=== PATIENT | male | born 1960 | race Caucasian/White ===

== ENCOUNTER 2020-11-02 08:34 | Outpatient (CLI) | payer BC, SELFPAY | END 2020-11-02 08:35 | disposition home or self-care (01) | LOC: ANHCOVIDVC 08:34 | PROVIDERS: PCP Family Medicine Adolescent Medicine | DX: Z23 Encounter for immunization (principal) | CPT/HCPCS: 0001A; 91300 ==

== ENCOUNTER 2020-11-23 08:25 | Outpatient (CLI) | payer BC, SELFPAY | END 2020-11-23 08:26 | LOC: ANHCOVIDVC 08:26 | PROVIDERS: PCP Family Medicine Adolescent Medicine | DX: Z23 Encounter for immunization (principal) | CPT/HCPCS: 0002A; 91300 ==

== ENCOUNTER 2021-06-11 21:58 | Inpatient (IN) | payer BC, SELFPAY ==
[2021-06-11] VITALS (18 sets, daily range): BP systolic 180–236; BP diastolic 79–110; PULSE 69–80; RESP 15–23; TEMP 36.4; O2SAT 87–97
--- NOTE | ~2021-06-11 | XR_ITS ---
EXAMINATION: XR chest 1V portable INDICATION: Shortness of breath TECHNIQUE: Portable AP chest at 2231 hours COMPARISON: 03/14/2018 FINDINGS: The lungs are free of acute opacities. There is no pleural effusion or pneumothorax. The ca rdiomediastinal silhouette is normal. IMPRESSION: 1. No acute cardiopulmonary abnormality. Reviewed, dictated and finalized at location A.
--- NOTE | ~2021-06-11 | CT_ITS ---
EXAMINATION: CT diagnostic chest wo con DATE: 06/14/2021 16:51 INDICATION: Shortness of breath TECHNIQUE: Computed tomography (CT) of the chest was performed without intravenous contrast. The dose -length product was 376.88 mGy-cm. Automated exposure control and iterative reconstruction technique were employed. COMPARISON: CT dated 06/11/2021 FINDINGS: Stable mild thoracic lymphadenopathy, likely reactive. Heart size normal. No significant pl eural or pericardial effusion. Visualized aspects of the upper abdomen are unremarkable. Mild atheros clerosis of the aorta and coronary arteries. No pneumothorax. No focal airspace consolidation. No end obronchial lesions. There is lower lobe atelectasis. Calcified granuloma right upper lobe. IMPRESSION: 1. Bilateral lower lobe atelectasis. Reviewed, dictated and finalized at location A.
--- NOTE | ~2021-06-11 | US_ITS ---
EXAMINATION: US venous doppler [facility] DATE: 06/12/2021 14:11 INDICATION: Bilateral lower limb swelling TECHNIQUE: Boyce scale images without and with compression and Doppler images of the bilateral lower e xtremity veins were obtained. COMPARISON: 03/14/2018 FINDINGS: The right common femoral vein, profunda femoral vein, femoral vein, popliteal vein, peroneal trunk, p osterior tibial veins, and greater saphenous vein are patent. The left common femoral vein, profunda femoral vein, femoral vein, popliteal vein, peroneal trunk, po sterior tibial veins, and greater saphenous vein are patent. IMPRESSION: 1. Patent bilateral lower extremity veins. No evidence of deep venous thrombosis. Reviewed, dictated and finalized at location A. IMPRESSION: 1. Patent bilateral lower extremity veins. No evidence of deep venous thrombosi s.
--- NOTE | ~2021-06-11 | CT_ITS ---
EXAMINATION: CTA chest PE protocol DATE: 06/12/2021 00:10 INDICATION: Shortness of breath TECHNIQUE: Computed tomography angiography (CTA) of the chest was performed with 100 mL Omnipaque-350 intravenous contrast timed to evaluate the pulmonary arteries. Coronal maximum intensity projection 3D-reconstructions were created by the technologist. The dose-length product (DLP) was 766.62 mGy-cm. Automated exposure control and iterative reconstruction technique were employed. COMPARISON: 03/14/2018 FINDINGS: The pulmonary arteries are well-opacified. No pulmonary embolism is identified. The lungs a re free of acute opacities. There is no pleural effusion or pneumothorax. There is mild chronic media stinal lymphadenopathy, likely reactive. Calcified coronary artery atherosclerosis is noted. The hear t size is normal. There is moderate thoracic spondylosis. IMPRESSION: 1. No pulmonary embolism or acute cardiopulmonary abnormality. Reviewed, dictated and finalized at location A.
--- NOTE | 2021-06-11 22:49 | ECG_ITS ---
Measurements Intervals [place] Rate: 73 P: 67 OR: 204 QRS: -50 QRSD: 118 T: 19 QT: 360 QTc: 398 Interpretive Statements SINUS RHYTHM LEFT AXIS DEVIATION INTRAVENTRICULAR CONDUCTION DELAY CANNOT RULE OUT SEPTAL INFARCT, AGE INDETERMINATE BASELINE ARTIFACT- I, III, AVL ABNORMAL ECG Electronically Signed On 06-12-2021 9:30:37 CDT by Marvin Bullock D.O.
[2021-06-11 23:03] LABS: Basophils Absolute Auto 0.1 K/mm3 (0.0-0.1); Basophils Percent Auto 1.2 % (0.2-1.2); Eosinophils Absolute Auto 0.3 K/mm3 (0-0.3); Eosinophils Percent Auto 3.4 % (0-4.4); Hematocrit 53.5 % (42.0-52.0); Hemoglobin 17.3 g/dL (14.0-18.0); Immature Granulocyte Absolute 0.02 K/mm3 (0.00-0.031); Immature Granulocyte Percent A 0.2 % (0-0.5); Lymphocytes Percent Auto 25.1 % (18.3-44.2); Mean Corpuscular HGB Conc 32.3 g/dl (32-36); Mean Corpuscular Hemoglobin 30.9 pg (26-34); Mean Corpuscular Volume 95.7 fl (80-100); Monocytes Percent Auto 10.5 % (2.6-8.5); Neutrophils Absolute Auto 5.5 K/mm3 (1.3-6.7); Neutrophils Percent Auto 59.6 % (45.5-73.1); Platelet Count Result 189 k/mm3 (150-375); Red Blood Count 5.59 M/mm3 (4.6-6.20); Red Cell Distribution Width 13.3 % (11.5-14.5); White Blood Count 9.2 K/mm3 (4.5-10.0)
[2021-06-11 23:06] LABS: Add Urine Microscopic? YES; Appearance Urine Clear (Clear); Bilirubin Urine Negative (Negative); Blood Urine Negative (Negative); Color Urine Straw (Yellow); Glucose Urine UA 3+ mg/dL (Negative); Ketones Urine Negative (Negative); Leukocyte Esterase Ur Negative LEU/UL (Negative); Nitrate Urine Negative (Negative); Protein Urine 2+ mg/dL (Negative); RBC Urine 0-2 /hpf (0-2); Specific Grav Ur 1.009 (1.001-1.035); Urobilinogen Urine Negative mg/dL (<2.0); WBC Urine 0-3 /hpf
[2021-06-11 23:15] LABS: INR 0.9
[2021-06-11] MEDS: IPRATROPIUM BR 0.02% INH SOLN 0.5 MG/2.5 ML VIAL INHALATION (23:15)
[2021-06-11 23:16] LABS: Partial Thromboplastin Time 28.1 SECONDS (22.3-36.8)
[2021-06-11] MEDS: ALBUTEROL SULFATE NEB 2.5 MG/0.5 ML INH 5 MG INHALATION (23:16)
[2021-06-11 23:17] LABS: Lactic Acid Reflex 1.1 mmol/L (0.7-2.1)
[2021-06-11 23:17] LABS: Alanine Aminotransferase 22 U/L (4-50); Albumin Level 3.9 g/dL (3.5-5.1); Alkaline Phosphatase 92 U/L (38-126); Anion Gap 5 mmol/L (8-16); Aspartate Amino Transferase 35 U/L (17-59); Bilirubin,Total 0.5 mg/dL (0.2-1.3); Blood Urea Nitrogen 17 mg/dL (9-20); Calcium 9.6 mg/dL (8.4-10.2); Carbon Dioxide 39 mmol/L (22-30); Chloride 93 mmol/L (98-107); Estimated CRCL calculation 105 ml/min; Estimated Glomerular Filt Rate > 60; Glucose 308 mg/dL (65-110); Magnesium 1.8 mg/dL (1.6-2.3); Potassium 4.3 mmol/L (3.4-5.0); Sodium 137 mmol/L (137-145)
--- NOTE | 2021-06-11 23:19 | PCRCNOTE ---
UNABLE TO OBTAIN ABG AFTER MULTIPLE ATTEMPTS. PHYSICIAN NOTIFIED.
[2021-06-11 23:29] LABS: NT Pro B Type Natriuretic Pept 60 pg/mL (5-100)
[2021-06-11 23:35] LABS: Troponin I < 0.012 ng/mL (0.000-0.034)
[2021-06-12] VITALS (21 sets, daily range): BP systolic 155–191; BP diastolic 73–91; PULSE 65–87; RESP 16–25; TEMP 36.2–37.1; O2SAT 90–94; BMI 29.9
--- NOTE | 2021-06-12 00:02 | ED.GENADULT ---
HPI - General Adult General Chief complaint: Shortness of Breath/Dyspnea Stated complaint: cough/congestion Time Seen by Provider: 06/11/21 22:25 History of Present Illness HPI narrative: Patient 60-year-old gentleman who presents the emergency department with chief complaint of shortness of breath. Patient reports he has prior history of ARDS secondary to pancreatitis the patient reports he was admitted at [facility] for some period of time is about 2 years ago patient states that he is not on home oxygen no history of COPD. The patient states that over the last several days he has had a cough that is been pretty yellow sputum patient reports that he has had his third vaccine for COVID-19 and is also had his flu shot this year patient reports his symptoms began a couple of days after receiving his most recent immunizations. Patient denies fever reports that he is felt short of breath. Patient denies chest pain denies abdominal pain. Related Data Allergies Allergy/AdvReac Type Severity Reaction Status Date / Time No Known Allergies Allergy Verified 06/11/21 22:31 Review of Systems Review of Systems: A 10 system review of systems was completed on the patient and is negative except for what is stated in the HPI. Nursing and ancillary documentation was reviewed. Exam Narrative: GENERAL: Well-appearing, well-nourished, and in no acute distress. HEAD: Normocephalic, atraumatic. EYES: PERRLA and EOMI. ENT: Nares clear, no rhinorrhea or epistaxis. Mucous membranes moist. NECK: Supple. CHEST: Clear to auscultation. No respiratory distress. HEART: Regular rate and rhythm. No murmur heard. Normal peripheral pulses. ABDOMEN: Soft, nontender, nondistended, normal active bowel sounds. EXTREMITIES: Normal range of motion. No edema. SKIN: Warm, dry, no rash. NEURO: No focal deficits. Alert and oriented x3. PSYCH: Normal mood and affect. Course Vital Signs Vital signs: Vital Signs Temperature 36.4 C 06/11/21 22:07 Pulse Rate 80 06/11/21 22:07 Respiratory Rate 20 06/11/21 22:07 Blood Pressure 236/110 H 06/11/21 22:07 Pulse Oximetry 87 L 06/11/21 22:07 Temperature 36.4 C 06/11/21 22:07 Pulse Rate 80 06/12/21 01:16 Respiratory Rate 22 H 06/12/21 01:16 Blood Pressure 167/78 H 06/12/21 01:16 Pulse Oximetry 93 06/12/21 01:16 Medical Decision Making Vital Signs Vital Signs: Vital Signs Temperature 36.4 C 06/11/21 22:07 Pulse Rate 80 06/11/21 22:07 Respiratory Rate 20 06/11/21 22:07 Blood Pressure 236/110 H 06/11/21 22:07 Pulse Oximetry 87 L 06/11/21 22:07 Temperature 36.4 C 06/11/21 22:07 Pulse Rate 80 06/12/21 01:16 Respiratory Rate 22 H 06/12/21 01:16 Blood Pressure 167/78 H 06/12/21 01:16 Pulse Oximetry 93 06/12/21 01:16 Lab Data Result diagrams: 06/11/21 22:56 06/11/21 22:56 Labs: Lab Results 06/11/21 06/11/21 06/11/21 Range/Units 22:56 22:56 22:56 WBC 9.2 (4.5-10.0) K/mm3 RBC 5.59 (4.6-6.20) M/mm3 Hgb 17.3 (14.0-18.0) g/dL Hct 53.5 H (42.0-52.0) % MCV 95.7 (80-100) fl MCH 30.9 (26-34) pg MCHC 32.3 (32-36) g/dl RDW 13.3 (11.5-14.5) % Plt Count 189 (150-375) k/mm3 MPV 12.0 H (7.4-10.4) fl Immature Gran % (Auto) 0.2 (0-0.5) % Neut % (Auto) 59.6 (45.5-73.1) % Lymph % (Auto) 25.1 (18.3-44.2) % Fannin % (Auto) 10.5 H (2.6-8.5) % Eos % (Auto) 3.4 (0-4.4) % Baso % (Auto) 1.2 (0.2-1.2) % Lymph # (Auto) 2.30 (0.9-3.2) K/mm3 Fannin # (Auto) 1.0 H (0.1-0.6) K/mm3 Eos # (Auto) 0.3 (0-0.3) K/mm3 Baso # (Auto) 0.1 (0.0-0.1) K/mm3 Abs Immat Gran (auto) 0.02 (0.00-0.031) K/mm3 Absolute Neuts (auto) 5.5 (1.3-6.7) K/mm3 Absolute Nucleated RBC 0.0 (0.0-0.012) K/mm3 Nucleated RBC % 0.0 (0.0-0.2) % PT 12.0 (11.1-14.7) Seconds INR 0.9 APTT 28.1 (22.3-36.8) SECONDS Sodium (137-145) mmol/L Potassium
[2021-06-12 01:23] LABS: Lipase 142 U/L (23-300)
[2021-06-12] MEDS: methylPREDNISolone SOD SUCC 125 MG VIAL IV PUSH (02:24)
[2021-06-12] MEDS: ALBUTEROL SULFATE (*SP) AEROSOL 1 PUFF 2 PUFF INHALATION (02:27)
--- NOTE | 2021-06-12 03:38 | ADMGEN ---
This patient, Sourav Jeter, was admitted to [facility] Surg Room 312-01 at 315. Patient/family oriented to hospital policies and general routines including ID bracelet, bed and alarms, visiting hours, pain management, procedures, bathroom and other care routines, personal items, smoking policy, room service/diet, and visiting hours. Information on how to activate the Rapid Response Team has been discussed. Patient/Family are encouraged to report perceived risks to care and to ask questions if they do not understand what they are told or what they should do.
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
[2021-06-12] MEDS: methylPREDNISolone SOD SUCC 125 MG VIAL 60 MG IV PUSH ×3 (08:23→21:07)
[2021-06-12] MEDS: POTASSIUM CHLORIDE 10 MEQ TABLET.ER PO (08:23)
[2021-06-12] MEDS: ROSUVASTATIN 10 MG TABLET 20 MG PO (08:24)
[2021-06-12] MEDS: ENOXAPARIN 40 MG/0.4 ML SYRINGE SUB-Q (08:24)
[2021-06-12] MEDS: METOPROLOL SUCCINATE EXT REL 100 MG TABCR PO (08:24)
[2021-06-12] MEDS: NICOTINE (*PBKC) 21 MG PATCH 1 PATCH TRANSDERM (08:25)
[2021-06-12] MEDS: FUROSEMIDE INJ 100 MG/10 ML VIAL 60 MG IV PUSH ×2 (08:25→17:05)
[2021-06-12] MEDS: hydrALAZINE HCL 50 MG TABLET PO ×3 (08:25→23:14)
[2021-06-12] MEDS: INSULIN ASPART (*BKC) 100 UNITS/ML SUB-Q ×3 (08:26→17:05)
[2021-06-12 08:27] LABS: Glucose Point of Care 304 mg/dl (65-105)
--- NOTE | 2021-06-12 11:34 | PM.IMPN ---
Progress Note: A&P Assessment and Plan (1) Respiratory failure: Qualifiers: Chronicity: acute on chronic Respiratory failure complication: hypoxia and hypercapnia Qualified Code(s): J96.21 - Acute and chronic respiratory failure with hypoxia; J96.22 - Acute and chronic respiratory failure with hypercapnia Code(s): J96.90 - Respiratory failure, unspecified, unspecified whether with hypoxia or hypercapnia Status: Acute Assessment and Plan: CTA reviewed, no acute findings. Bilateral lower extremity venous Doppler has been ordered. Continue breathing treatments Given the patient's history of chronic tobacco use, obstructive sleep apnea, elevated hematocrit, prior history of CO2 retention he likely has some chronic hypoxic hypercapnic respiratory failure. Patient likely has underlying COPD which he has not had an official diagnosis. The patient also reports orthopnea paroxysmal nocturnal dyspnea is associated with lower extremity edema. I suspect there is also some component of CHF exacerbation. IV Lasix and echocardiogram have been ordered. Regarding the suspected COPD. IV Solu-Medrol will be continued as well as scheduled inhalers with albuterol. The patient has received his vaccines for COVID including the booster but will check COVID PCR to rule out COVID infection the reason for the patient's acute component of respiratory failure. An ABG was ordered in the ER but staff had difficulty obtaining ABG the patient requested that we hold off on further attempts. Patient is not in severe respiratory distress and will hold off on repeat attempts at this time. (2) Person under investigation for COVID-19: Code(s): Z20.822 - Contact with and (suspected) exposure to COVID-19 Status: Acute Assessment and Plan: Given the rest the patient's clinical picture COVID is less likely. COVID PCR pending. Patient remains on isolation. (3) CHF (congestive heart failure): Qualifiers: Heart failure type: unspecified Heart failure chronicity: acute on chronic Qualified Code(s): I50.9 - Heart failure, unspecified Code(s): I50.9 - Heart failure, unspecified Status: Acute Assessment and Plan: Brain natriuretic peptide it's 60 so less likely to be congestive heart failure. Although the patient denies having history of CHF he is on Lasix at home. I suspect he likely has some underlying CHF. Will check echocardiogram to further evaluate cardiac structure and function. Will place patient on IV Lasix 60 mg b.i.d. Monitor strict I&O's and daily weights. (4) Uncontrolled hypertension: Code(s): I10 - Essential (primary) hypertension Status: Acute Assessment and Plan: Continue to monitor target of 130/80 Will resume the patient's home metoprolol succinate and will restart home hydralazine but changed to t.i.d. dosing. Depending on echo results the patient may benefit from addition of [place]-inhibitor or Arb. Will add hydralazine 10 mg IV Q 4 hours p.r.n. systolic blood pressure greater than 160. (5) Continuous tobacco abuse: Code(s): Z72.0 - Tobacco use Status: Acute Assessment and Plan: Tobacco cessation was discussed between 3 and 5 minutes. The patient intends to quit smoking. Nicotine patch and/or gum have been offered. (6) Diabetes mellitus with hyperglycemia, with long-term current use of insulin: Code(s): E11.65 - Type 2 diabetes mellitus with hyperglycemia; Z79.4 - FPC (current) use of insulin Status: Acute Assessment and Plan: The patient is already hyperglycemic. His home Lantus was recently increased to 50 units HS. Will continue his home Lantus. Will add high-dose sliding scale insulin expresses the patient is receiving steroids for suspected COPD exacerbation. Patient has been placed on a consistent carbohydrate low-sodium diet. Subjective
[2021-06-12 12:06] LABS: Glucose Point of Care 387 mg/dl (65-105)
[2021-06-12] MEDS: ALBUTEROL SULFATE (*SP) INHALER 4 PUFF INHALATION ×3 (12:17→17:38)
[2021-06-12] MEDS: TRIAMCINOLONE ACET 0.1% CREAM 15 GM TUBE 1 APPLIC TOPICAL (17:06)
[2021-06-12 17:16] LABS: Glucose Point of Care 398 mg/dl (65-105)
[2021-06-12] MEDS: INSULIN ASPART (*BKC) 100 UNITS/ML 10 UNITS SUB-Q (21:07)
[2021-06-12] MEDS: INSULIN GLARGINE (*BKC) 100 UNITS/ML 60 UNITS SUB-Q (21:07)
[2021-06-12] MEDS: guaiFENesin 12 HR 600 MG TABCR 1200 MG PO (21:08)
[2021-06-12 21:51] LABS: Glucose Point of Care 426 mg/dl (65-105)
[2021-06-13] VITALS (9 sets, daily range): BP systolic 140–177; BP diastolic 68–80; PULSE 60–91; RESP 16–21; TEMP 36.1–37.2; O2SAT 90–96
[2021-06-13 06:27] LABS: Hematocrit 53.2 % (42.0-52.0); Hemoglobin 17.4 g/dL (14.0-18.0); Mean Corpuscular HGB Conc 32.7 g/dl (32-36); Mean Corpuscular Volume 94.8 fl (80-100); Mean Platelet Volume 12.2 fl (7.4-10.4); Platelet Count Result 194 k/mm3 (150-375); Red Blood Count 5.61 M/mm3 (4.6-6.20); Red Cell Distribution Width 13.2 % (11.5-14.5); White Blood Count 12.7 K/mm3 (4.5-10.0)
[2021-06-13] MEDS: methylPREDNISolone SOD SUCC 125 MG VIAL 60 MG IV PUSH ×3 (06:28→21:07)
[2021-06-13 06:54] LABS: Anion Gap 3 mmol/L (8-16); Blood Urea Nitrogen 28 mg/dL (9-20); Calcium 9.3 mg/dL (8.4-10.2); Carbon Dioxide 39 mmol/L (22-30); Chloride 93 mmol/L (98-107); Estimated CRCL calculation 92 ml/min; Estimated Glomerular Filt Rate > 60; Glucose 288 mg/dL (65-110); Potassium 4.3 mmol/L (3.4-5.0); Sodium 135 mmol/L (137-145)
[2021-06-13 07:12] LABS: Hemoglobin A1C 9.7 % (<5.7)
[2021-06-13] MEDS: ALBUTEROL SULFATE (*SP) INHALER 4 PUFF INHALATION ×3 (08:02→20:59)
[2021-06-13 08:03] LABS: Glucose Point of Care 309 mg/dl (65-105)
[2021-06-13] MEDS: ROSUVASTATIN 10 MG TABLET 20 MG PO (09:00)
[2021-06-13] MEDS: INSULIN ASPART (*BKC) 100 UNITS/ML SUB-Q (09:00)
[2021-06-13] MEDS: POTASSIUM CHLORIDE 10 MEQ TABLET.ER PO (09:00)
[2021-06-13] MEDS: METOPROLOL SUCCINATE EXT REL 100 MG TABCR PO (09:00)
[2021-06-13] MEDS: guaiFENesin 12 HR 600 MG TABCR 1200 MG PO ×2 (09:00→21:07)
[2021-06-13] MEDS: NICOTINE (*PBKC) 21 MG PATCH 1 PATCH TRANSDERM (09:01)
[2021-06-13] MEDS: hydrALAZINE HCL 50 MG TABLET PO ×2 (09:01→17:28)
[2021-06-13] MEDS: ENOXAPARIN 40 MG/0.4 ML SYRINGE SUB-Q (09:02)
[2021-06-13] MEDS: TRIAMCINOLONE ACET 0.1% CREAM 15 GM TUBE 1 APPLIC TOPICAL ×2 (09:02→17:28)
[2021-06-13] MEDS: FUROSEMIDE INJ 100 MG/10 ML VIAL 60 MG IV PUSH ×2 (09:02→17:28)
[2021-06-13 12:08] LABS: Glucose Point of Care 426 mg/dl (65-105)
[2021-06-13] MEDS: INSULIN ASPART (*BKC) 100 UNITS/ML 18 UNITS SUB-Q ×2 (12:13→17:42)
--- NOTE | 2021-06-13 12:58 | PM.IMPN ---
Progress Note: A&P Assessment and Plan (1) Respiratory failure: Qualifiers: Chronicity: acute on chronic Respiratory failure complication: hypoxia and hypercapnia Qualified Code(s): J96.21 - Acute and chronic respiratory failure with hypoxia; J96.22 - Acute and chronic respiratory failure with hypercapnia Code(s): J96.90 - Respiratory failure, unspecified, unspecified whether with hypoxia or hypercapnia Status: Acute Assessment and Plan: Patient requiring supplemental oxygen by nasal cannula and humidifier on. Continue breathing treatments scheduled. Supportive care COVID PCR pending CTA reviewed, no acute findings. Bilateral lower extremity venous Doppler has been ordered. Continue breathing treatments Given the patient's history of chronic tobacco use, obstructive sleep apnea, elevated hematocrit, prior history of CO2 retention he likely has some chronic hypoxic hypercapnic respiratory failure. Patient likely has underlying COPD which he has not had an official diagnosis. The patient also reports orthopnea paroxysmal nocturnal dyspnea is associated with lower extremity edema. I suspect there is also some component of CHF exacerbation. IV Lasix and echocardiogram have been ordered. Regarding the suspected COPD. IV Solu-Medrol will be continued as well as scheduled inhalers with albuterol. The patient has received his vaccines for COVID including the booster but will check COVID PCR to rule out COVID infection the reason for the patient's acute component of respiratory failure. An ABG was ordered in the ER but staff had difficulty obtaining ABG the patient requested that we hold off on further attempts. Patient is not in severe respiratory distress and will hold off on repeat attempts at this time. (2) Person under investigation for COVID-19: Code(s): Z20.822 - Contact with and (suspected) exposure to COVID-19 Status: Acute Assessment and Plan: Supportive care Given the rest the patient's clinical picture COVID is less likely. COVID PCR pending. Patient remains on isolation. (3) CHF (congestive heart failure): Qualifiers: Heart failure type: unspecified Heart failure chronicity: acute on chronic Qualified Code(s): I50.9 - Heart failure, unspecified Code(s): I50.9 - Heart failure, unspecified Status: Acute Assessment and Plan: Brain natriuretic peptide it's 60 so less likely to be congestive heart failure. Although the patient denies having history of CHF he is on Lasix at home. I suspect he likely has some underlying CHF. Will check echocardiogram to further evaluate cardiac structure and function. Will place patient on IV Lasix 60 mg b.i.d. Monitor strict I&O's and daily weights. (4) Uncontrolled hypertension: Code(s): I10 - Essential (primary) hypertension Status: Acute Assessment and Plan: Continue to monitor target of 130/80 Will resume the patient's home metoprolol succinate and will restart home hydralazine but changed to t.i.d. dosing. Depending on echo results the patient may benefit from addition of [place]-inhibitor or Arb. Will add hydralazine 10 mg IV Q 4 hours p.r.n. systolic blood pressure greater than 160. (5) Continuous tobacco abuse: Code(s): Z72.0 - Tobacco use Status: Acute Assessment and Plan: Tobacco cessation was discussed between 3 and 5 minutes. The patient intends to quit smoking. Nicotine patch and/or gum have been offered. (6) Diabetes mellitus with hyperglycemia, with long-term current use of insulin: Code(s): E11.65 - Type 2 diabetes mellitus with hyperglycemia; Z79.4 - exterminator helper termite (current) use of insulin Status: Acute Assessment and Plan: The patient is already hyperglycemic. His home Lantus was recently increased to 50 units HS. Will continue his home Lantus. Will add high-dose sliding scale insu
[2021-06-13 16:35] LABS: Glucose Point of Care 412 mg/dl (65-105)
[2021-06-13 20:00] LABS: SARS-CoV-2 RNA PCR Negative
[2021-06-13] MEDS: INSULIN GLARGINE (*BKC) 100 UNITS/ML 60 UNITS SUB-Q (21:07)
[2021-06-13 21:26] LABS: Glucose Point of Care 348 mg/dl (65-105)
[2021-06-14] VITALS (11 sets, daily range): BP systolic 144–171; BP diastolic 65–78; PULSE 66–79; RESP 15–22; TEMP 36.5–36.6; O2SAT 91–95
--- NOTE | 2021-06-14 | ECHO_ITS ---
Patient Info Name: Sourav Jeter Age: 60 years : 1960 Gender: Male Ht: 72 in Wt: 220 lbs BSA: 2.27 m2 HR: 4 bpm BP: 145 / 65 mmHg Technical Quality: Fair Exam Date: 06/14/2021 9:07 AM Exam Location: [facility] Pulmonary Patient Status: Inpatient Admit Date: 06/14/2021 Staff Ordering Physician: Breanna Rashid DO Certified Ethical Hacker: Destiny Reina RDCS Attending Provider: Breanna Rashid DO Referring Physician: Rachid JAMES; Exam Type: CA echo doppler color flow Study Info Indications R06.09 - Other forms of dyspnea R06.01 - Orthopnea Complete two-dimensional, color flow and Doppler transthoracic echocardiogram is performed. Summary 1. Complete two-dimensional, color flow and Doppler transthoracic echocardiogram is performed. 2. Normal LV size, moderate LVH, hyperdynamic LV systolic function, EF more than 70%. Normal diastolic function. Mild biatrial enlargement. Mildly thickened mitral valve leaflets, no significant MR. Mild aortic valve sclerosis, maximum velocity 1.9 m/sec, mean gradient 9 mmHg, mild aortic stenosis with ARMANDO 2.2 cm2. Trivial TR. RVSP 31 mmHg. Sinus rhythm. Left Ventricle Left ventricular chamber dimension is normal. Left ventricular systolic function is hyperdynamic, estimated at >70%. There is moderately increased left ventricular wall thickness. The left ventricular diastolic function is normal. Right Ventricle Right ventricular chamber dimension is mildly enlarged. Right ventricular systolic function is normal. Left Atria Left atrial chamber dimension is mildly enlarged. Right Atria Right atrial chamber dimension is mildly enlarged. Aortic Valve The aortic valve is not well visualized. There is mild aortic valve stenosis with a peak velocity of 192 cm/s, mean gradient of 9 mmHg, and aortic valve area of 2.2 cm2. Pulmonic Valve The pulmonic valve is normal. Mitral Valve The mitral valve has thickened leaflets. There is no mitral valve regurgitation. Tricuspid Valve There is trace tricuspid valve regurgitation. Pericardium/Pleural The pericardium appears normal. Inferior Vena Cava Dilated inferior vena cava with >50% collapse upon inspiration consistent with normal right atrial pressure, 10 mmHg. Left Ventricular Outflow Tract Name Value Normal LVOT 2D LVOT Diameter 2.0 cm LVOT Doppler LVOT Peak Gradient 7 mmHg LVOT Mean Gradient 4 mmHg LVOT VTI 26 cm LVOT VTI/AV VTI Ratio 0.7 LVOT Stroke Volume 85 ml LVOT CO 6.9 l/min LVOT CI 3.0 l/min/m2 Pulmonic Valve Name Value Normal RVOT Doppler RVOT Peak Gradient 5 mmHg PV Doppler
[2021-06-14] MEDS: hydrALAZINE HCL 50 MG TABLET PO ×3 (00:14→16:19)
[2021-06-14] MEDS: ALBUTEROL SULFATE (*SP) INHALER 4 PUFF INHALATION ×4 (02:34→19:21)
[2021-06-14] MEDS: methylPREDNISolone SOD SUCC 125 MG VIAL 60 MG IV PUSH ×3 (06:33→20:50)
[2021-06-14 07:50] LABS: Glucose Point of Care 485 mg/dl (65-105)
[2021-06-14] MEDS: INSULIN ASPART (*BKC) 100 UNITS/ML 8 UNITS SUB-Q ×2 (08:08→10:35)
[2021-06-14] MEDS: METOPROLOL SUCCINATE EXT REL 100 MG TABCR PO (08:14)
[2021-06-14] MEDS: guaiFENesin 12 HR 600 MG TABCR 1200 MG PO ×2 (08:14→20:49)
[2021-06-14] MEDS: ROSUVASTATIN 10 MG TABLET 20 MG PO (08:14)
[2021-06-14] MEDS: NICOTINE (*PBKC) 21 MG PATCH 1 PATCH TRANSDERM (08:14)
[2021-06-14] MEDS: FUROSEMIDE INJ 100 MG/10 ML VIAL 60 MG IV PUSH ×2 (08:15→17:11)
[2021-06-14] MEDS: ENOXAPARIN 40 MG/0.4 ML SYRINGE SUB-Q (08:15)
[2021-06-14] MEDS: POTASSIUM CHLORIDE 10 MEQ TABLET.ER PO (08:15)
[2021-06-14] MEDS: TRIAMCINOLONE ACET 0.1% CREAM 15 GM TUBE 1 APPLIC TOPICAL (08:16)
--- NOTE | 2021-06-14 09:49 | PM.IMPN ---
Progress Note: A&P Assessment and Plan (1) Respiratory failure: Qualifiers: Chronicity: acute on chronic Respiratory failure complication: hypoxia and hypercapnia Qualified Code(s): J96.21 - Acute and chronic respiratory failure with hypoxia; J96.22 - Acute and chronic respiratory failure with hypercapnia Code(s): J96.90 - Respiratory failure, unspecified, unspecified whether with hypoxia or hypercapnia Status: Acute Assessment and Plan: Patient requiring supplemental oxygen by nasal cannula and humidifier on. Continue breathing treatments scheduled. Supportive care COVID PCR pending CTA reviewed, no acute findings. Bilateral lower extremity venous Doppler has been ordered. Continue breathing treatments Given the patient's history of chronic tobacco use, obstructive sleep apnea, elevated hematocrit, prior history of CO2 retention he likely has some chronic hypoxic hypercapnic respiratory failure. Patient likely has underlying COPD which he has not had an official diagnosis. The patient also reports orthopnea paroxysmal nocturnal dyspnea is associated with lower extremity edema. I suspect there is also some component of CHF exacerbation. IV Lasix and echocardiogram have been ordered. Regarding the suspected COPD. IV Solu-Medrol will be continued as well as scheduled inhalers with albuterol. The patient has received his vaccines for COVID including the booster but will check COVID PCR to rule out COVID infection the reason for the patient's acute component of respiratory failure. An ABG was ordered in the ER but staff had difficulty obtaining ABG the patient requested that we hold off on further attempts. Patient is not in severe respiratory distress and will hold off on repeat attempts at this time. (2) Person under investigation for COVID-19: Code(s): Z20.822 - Contact with and (suspected) exposure to COVID-19 Status: Acute Assessment and Plan: Supportive care Given the rest the patient's clinical picture COVID is less likely. COVID PCR pending. Patient remains on isolation. (3) CHF (congestive heart failure): Qualifiers: Heart failure chronicity: acute on chronic Heart failure type: unspecified Qualified Code(s): I50.9 - Heart failure, unspecified Code(s): I50.9 - Heart failure, unspecified Status: Acute (4) Uncontrolled hypertension: Code(s): I10 - Essential (primary) hypertension Status: Acute (5) Continuous tobacco abuse: Code(s): Z72.0 - Tobacco use Status: Acute Assessment and Plan: Tobacco cessation was discussed between 3 and 5 minutes. The patient intends to quit smoking. Nicotine patch and/or gum have been offered. (6) Diabetes mellitus with hyperglycemia, with long-term current use of insulin: Code(s): E11.65 - Type 2 diabetes mellitus with hyperglycemia; Z79.4 - [facility] (current) use of insulin Status: Acute Assessment and Plan: The patient is already hyperglycemic. His home Lantus was recently increased to 50 units HS. Will continue his home Lantus. Will add high-dose sliding scale insulin expresses the patient is receiving steroids for suspected COPD exacerbation. Patient has been placed on a consistent carbohydrate low-sodium diet. Additional Plan 60yo male with CAD HTN DM2 JENN and history of ARDS in 2018? presenting with Acute hypoxic respiratory failure. Hypoxic Respiratory Failure: No DVT on US & No PE on CTA. COVID negative. BNP 60, trop neg, CXR without acute findings. Echo is pending, suspicion for pulm htn. Etiology not clear - possibly undiagnosed COPD vs asthma? May involve pulm - for the time being, will continue albuterol steroids. May escalate breathing treatments as necessary. Noted pt has been started on lasix. Continue CPAP at night for JENN. CT chest to better visualize lung parenchyma. Q6 breathing treatments. Will discuss ins
[2021-06-14 10:36] LABS: Glucose Point of Care > 500 mg/dl (65-105)
[2021-06-14 11:41] LABS: Glucose Point of Care > 500 mg/dl (65-105)
[2021-06-14 11:41] LABS: Albumin Level 3.7 g/dL (3.5-5.1); Alkaline Phosphatase 88 U/L (38-126); Anion Gap 7 mmol/L (8-16); Aspartate Amino Transferase 35 U/L (17-59); Bilirubin,Total 0.3 mg/dL (0.2-1.3); Blood Urea Nitrogen 39 mg/dL (9-20); Calcium 9.1 mg/dL (8.4-10.2); Carbon Dioxide 38 mmol/L (22-30); Chloride 90 mmol/L (98-107); Estimated CRCL calculation 76 ml/min; Estimated Glomerular Filt Rate > 60; Glucose 581 mg/dL (65-110); Potassium 3.9 mmol/L (3.4-5.0); Sodium 135 mmol/L (137-145)
[2021-06-14 11:44] LABS: Alanine Aminotransferase 32 U/L (4-50)
[2021-06-14] MEDS: INSULIN ASPART (*BKC) 100 UNITS/ML 18 UNITS SUB-Q (12:10)
[2021-06-14 13:10] LABS: Glucose Point of Care > 500 mg/dl (65-105)
--- NOTE | 2021-06-14 15:38 | PC.NURSE ---
Called Dr Cheung about 557 blood glucose at [phone]. House sup notified.
[2021-06-14 16:34] LABS: Glucose Point of Care 418 mg/dl (65-105)
--- NOTE | 2021-06-14 17:30 | PC.NURSE ---
This patient, Sourav Jeter, was transferred to ICU-2 on 06/14/21 at 1730. Personal belongings sent with patient. Report given to CISCO Barney. Appropriate documentation sent with patient.
[2021-06-14] MEDS: INSULIN HUMAN REGULAR (*BKC) 100 UNITS/ML 10 UNITS IV PUSH (17:49)
[2021-06-14 17:56] LABS: Glucose Point of Care 462 mg/dl (65-105)
[2021-06-14 17:57] LABS: Anion Gap 6 mmol/L (8-16); Blood Urea Nitrogen 40 mg/dL (9-20); Calcium 9.1 mg/dL (8.4-10.2); Carbon Dioxide 39 mmol/L (22-30); Chloride 91 mmol/L (98-107); Estimated CRCL calculation 70 ml/min; Estimated Glomerular Filt Rate > 60; Glucose 484 mg/dL (65-110); Magnesium 2.3 mg/dL (1.6-2.3); Phosphorus 3.3 mg/dL (2.5-4.5); Sodium 136 mmol/L (137-145)
[2021-06-14] MEDS: INSULIN HUMAN REGULAR (*BKC) 100 UNITS in SODIUM CHLORIDE 0.9% IV 99 ML 7.2 UNITS IV CONT (17:59)
[2021-06-14] MEDS: INSULIN HUMAN REGULAR (*BKC) 100 UNITS in SODIUM CHLORIDE 0.9% IV 99 ML 8 UNITS IV CONT (18:02)
[2021-06-14] MEDS: hydrALAZINE HCL 20 MG/ML VIAL 10 MG IV PUSH (18:20)
[2021-06-14 18:46] LABS: Glucose Point of Care 441 mg/dl (65-105)
[2021-06-14] MEDS: IPRATROPIUM BR 0.02% INH SOLN 0.5 MG/2.5 ML VIAL INHALATION (19:21)
[2021-06-14] MEDS: INSULIN GLARGINE (*BKC) 100 UNITS/ML 60 UNITS SUB-Q (20:47)
[2021-06-14 21:07] LABS: Glucose Point of Care 399 mg/dl (65-105)
[2021-06-14 22:10] LABS: Glucose Point of Care 253 mg/dl (65-105)
[2021-06-14 23:16] LABS: Glucose Point of Care 248 mg/dl (65-105)
[2021-06-15] VITALS (15 sets, daily range): BP systolic 127–153; BP diastolic 58–78; PULSE 53–92; RESP 14–22; TEMP 36.6–36.7; O2SAT 90–93; BMI 31.7
[2021-06-15] MEDS: hydrALAZINE HCL 50 MG TABLET PO ×3 (00:18→16:08)
[2021-06-15 00:24] LABS: Glucose Point of Care 171 mg/dl (65-105)
[2021-06-15 01:30] LABS: Glucose Point of Care 105 mg/dl (65-105)
[2021-06-15] MEDS: ALBUTEROL SULFATE NEB 2.5 MG/0.5 ML INH INHALATION ×4 (01:58→20:46)
[2021-06-15] MEDS: IPRATROPIUM BR 0.02% INH SOLN 0.5 MG/2.5 ML VIAL INHALATION ×4 (01:58→20:46)
[2021-06-15 02:18] LABS: Glucose Point of Care 86 mg/dl (65-105)
[2021-06-15 03:18] LABS: Glucose Point of Care 109 mg/dl (65-105)
[2021-06-15 04:26] LABS: Glucose Point of Care 130 mg/dl (65-105)
[2021-06-15 04:50] LABS: Basophils Percent Auto 0.2 % (0.2-1.2); Hemoglobin 17.1 g/dL (14.0-18.0); Immature Granulocyte Absolute 0.08 K/mm3 (0.00-0.031); Immature Granulocyte Percent A 0.5 % (0-0.5); Lymphocytes Absolute Auto 1.12 K/mm3 (0.9-3.2); Lymphocytes Percent Auto 7.3 % (18.3-44.2); Mean Corpuscular HGB Conc 32.3 g/dl (32-36); Mean Corpuscular Hemoglobin 30.9 pg (26-34); Mean Corpuscular Volume 95.7 fl (80-100); Mean Platelet Volume 11.8 fl (7.4-10.4); Monocytes Absolute Auto 0.4 K/mm3 (0.1-0.6); Monocytes Percent Auto 2.6 % (2.6-8.5); Neutrophils Absolute Auto 13.7 K/mm3 (1.3-6.7); Neutrophils Percent Auto 89.4 % (45.5-73.1); Platelet Count Result 180 k/mm3 (150-375); Red Blood Count 5.54 M/mm3 (4.6-6.20); Red Cell Distribution Width 13.3 % (11.5-14.5); White Blood Count 15.4 K/mm3 (4.5-10.0)
[2021-06-15 05:14] LABS: Glucose Point of Care 126 mg/dl (65-105)
[2021-06-15 05:15] LABS: Alanine Aminotransferase 22 U/L (4-50); Albumin Level 3.3 g/dL (3.5-5.1); Alkaline Phosphatase 70 U/L (38-126); Aspartate Amino Transferase 29 U/L (17-59); Bilirubin,Total 0.4 mg/dL (0.2-1.3); Blood Urea Nitrogen 39 mg/dL (9-20); Calcium 8.6 mg/dL (8.4-10.2); Carbon Dioxide > 40 mmol/L (22-30); Chloride 96 mmol/L (98-107); Estimated CRCL calculation 83 ml/min; Estimated Glomerular Filt Rate > 60; Glucose 128 mg/dL (65-110); Magnesium 2.2 mg/dL (1.6-2.3); Phosphorus 3.9 mg/dL (2.5-4.5); Potassium 3.6 mmol/L (3.4-5.0); Sodium 140 mmol/L (137-145)
[2021-06-15 06:23] LABS: Glucose Point of Care 120 mg/dl (65-105)
[2021-06-15] MEDS: methylPREDNISolone SOD SUCC 125 MG VIAL 60 MG IV PUSH (06:28)
[2021-06-15 07:30] LABS: Glucose Point of Care 115 mg/dl (65-105)
[2021-06-15] MEDS: NICOTINE (*PBKC) 21 MG PATCH 1 PATCH TRANSDERM (08:20)
[2021-06-15] MEDS: POTASSIUM CHLORIDE 10 MEQ TABLET.ER PO (08:20)
[2021-06-15] MEDS: METOPROLOL SUCCINATE EXT REL 100 MG TABCR PO (08:20)
[2021-06-15] MEDS: ROSUVASTATIN 10 MG TABLET 20 MG PO (08:20)
[2021-06-15] MEDS: ENOXAPARIN 40 MG/0.4 ML SYRINGE SUB-Q (08:20)
[2021-06-15] MEDS: guaiFENesin 12 HR 600 MG TABCR 1200 MG PO ×2 (08:20→20:40)
[2021-06-15] MEDS: FUROSEMIDE INJ 100 MG/10 ML VIAL 60 MG IV PUSH (08:20)
[2021-06-15 08:32] LABS: Glucose Point of Care 117 mg/dl (65-105)
--- NOTE | 2021-06-15 09:11 | WPDCNINT ---
Assessment and Plan Assessment and plan (1) Diabetes mellitus with hyperglycemia, with long-term current use of insulin: Code(s): E11.65 - Type 2 diabetes mellitus with hyperglycemia; Z79.4 - [facility] (current) use of insulin Status: Acute Assessment and Plan: uncontrolled hyperglycemia secondary to steroids. patient was started on IV insulin infusion overnight Q1H sugars were checked. this morning his insulin drip is down to 1.1 units/hour resume diet add a.m. Lantus of 30 units change sliding scale to Q a.c. and HS and high level discontinue insulin drip and transition to subcutaneous insulin steroid dose also been decreased (2) Respiratory failure: Qualifiers: Chronicity: acute on chronic Respiratory failure complication: hypoxia and hypercapnia Qualified Code(s): J96.21 - Acute and chronic respiratory failure with hypoxia; J96.22 - Acute and chronic respiratory failure with hypercapnia Code(s): J96.90 - Respiratory failure, unspecified, unspecified whether with hypoxia or hypercapnia Status: Acute Assessment and Plan: secondary to COPD and CHF exacerbation Patient requiring supplemental oxygen by nasal cannula and humidifier on. Continue bronchodilators Continue Solu-Medrol but change to Q a.m. continue Lasix but change to q.a.m. since I do not see any significant edema on the legs now COVID PCR negative CTA reviewed and showed no acute findings. Bilateral lower extremity venous Doppler negative for DVT . The patient also reports orthopnea paroxysmal nocturnal dyspnea is associated with lower extremity edema. I suspect there is also some component of CHF exacerbation. IV Lasix and echocardiogram have been ordered. Regarding the suspected COPD. IV Solu-Medrol will be continued as well as scheduled inhalers with albuterol. The patient has received his vaccines for COVID including the booster but will check COVID PCR to rule out COVID infection the reason for the patient's acute component of respiratory failure. An ABG was ordered in the ER but staff had difficulty obtaining ABG the patient requested that we hold off on further attempts. Patient is not in severe respiratory distress and will hold off on repeat attempts at this time. (3) COPD exacerbation: Code(s): J44.1 - Chronic obstructive pulmonary disease with (acute) exacerbation Status: Acute Assessment and Plan: Given the patient's history of chronic tobacco use, obstructive sleep apnea, elevated hematocrit, prior history of CO2 retention he likely has COPD and chronic hypoxic hypercapnic respiratory failure. he would benefit from PFTs outpatient once feeling better continue supplemental oxygen bronchodilators and steroids at this time in light of increased dyspnea and increased sputum production will start a short course of antibiotic for COPD exacerbation (4) CHF (congestive heart failure): Qualifiers: Heart failure type: unspecified Heart failure chronicity: acute on chronic Qualified Code(s): I50.9 - Heart failure, unspecified Code(s): I50.9 - Heart failure, unspecified Status: Acute Assessment and Plan: patient likely has a right heart failure secondary to chronic lung disease. cor pulmonale echocardiogram reviews and shows right ventricular chamber distension it would be consistent with history of chronic lower extremity edema continue Lasix for decreased does (5) Person under investigation for COVID-19: Code(s): Z20.822 - Contact with and (suspected) exposure to COVID-19 Status: Acute Assessment and Plan: COVID-19 was suspected. SARS-CoV-2 PCR sent and is negative (6) Uncontrolled hypertension: Code(s): I10 - Essential (primary) hypertension Status: Acute (7) Continuous tobacco abuse: Code(s): Z72.0 - Tobacco use Status: Acute Assessment and Plan: I have counseled and encouraged pa
[2021-06-15] MEDS: INSULIN GLARGINE (*BKC) 100 UNITS/ML 30 UNITS SUB-Q (09:16)
[2021-06-15] MEDS: POTASSIUM CHLORIDE 20 MEQ TABLET 40 MEQ PO (09:16)
[2021-06-15] MEDS: AZITHROMYCIN 250 MG TABLET 500 MG PO (09:58)
[2021-06-15 12:18] LABS: Glucose Point of Care 317 mg/dl (65-105)
[2021-06-15] MEDS: INSULIN ASPART (*BKC) 100 UNITS/ML SUB-Q ×2 (13:21→17:59)
--- NOTE | 2021-06-15 14:41 | PM.IMPN ---
Progress Note: A&P Assessment and Plan (1) Diabetes mellitus with hyperglycemia, with long-term current use of insulin: Code(s): E11.65 - Type 2 diabetes mellitus with hyperglycemia; Z79.4 - terminal press operator (current) use of insulin Status: Acute Assessment and Plan: uncontrolled hyperglycemia secondary to steroids. patient was started on IV insulin infusion overnight Q1H sugars were checked. this morning his insulin drip is down to 1.1 units/hour resume diet add a.m. Lantus of 30 units change sliding scale to Q a.c. and HS and high level discontinue insulin drip and transition to subcutaneous insulin steroid dose also been decreased (2) Respiratory failure: Qualifiers: Chronicity: acute on chronic Respiratory failure complication: hypoxia and hypercapnia Qualified Code(s): J96.21 - Acute and chronic respiratory failure with hypoxia; J96.22 - Acute and chronic respiratory failure with hypercapnia Code(s): J96.90 - Respiratory failure, unspecified, unspecified whether with hypoxia or hypercapnia Status: Acute (3) COPD exacerbation: Code(s): J44.1 - Chronic obstructive pulmonary disease with (acute) exacerbation Status: Acute (4) CHF (congestive heart failure): Qualifiers: Heart failure chronicity: acute on chronic Heart failure type: unspecified Qualified Code(s): I50.9 - Heart failure, unspecified Code(s): I50.9 - Heart failure, unspecified Status: Acute (5) Uncontrolled hypertension: Code(s): I10 - Essential (primary) hypertension Status: Acute (6) Continuous tobacco abuse: Code(s): Z72.0 - Tobacco use Status: Acute Assessment and Plan: nicotine patch ordered Additional Plan Acute Hypoxic Respiratory Failure: as noted by ICU team, suspect combination of chf & COPD exacerbation likely triggered by inhalation during concrete mixing. COVID negative, no DVT or PE on CTA. Noncontrast CT showing only bilateral lower lobe atelectasis. There is a calcified granuloma rt upper lobe. Will obtain AFB. Continue COPD treatment incl Q6 nebs, methylpred, AZX. Also continue lasix for CHF, echo is pending. Hyperglycemia: due to patient's poorly controlled DM and steroids. Was in ICU overnight for insulin drip, but sugars now controlled, and able to keep in appropriate range on SubQ insulin, namely 30AM, 60PM 4-8 TIDWM. Time Spent With Patient Time with patient: less than 15 minutes Subjective Date/time seen: 06/15/21 14:41 no acute complaints. still having coughing spells. Review of Systems Review of Systems: All systems reviewed & are unremarkable except as noted in HPI and below Exam Const: General: no acute distress Neck: Neck: no JVD Resp: Effort & Inspection: normal respiratory effort Auscultation: clear to auscultation bilaterally Cardio: Rate: regular rate Rhythm: regular rhythm GI: Inspection: non-distended Objective Data Vital Signs Vital Signs: Vital Signs - 24 hr 06/14/21 15:40 06/14/21 18:00 06/14/21 19:26 Temperature 97.8 F 98 F Pulse Rate 76 75 Respiratory Rate 18 22 H Blood Pressure 156/66 H 171/78 H Pulse Oximetry 91 93 91 06/14/21 19:27 06/14/21 20:00 06/14/21 20:40 Temperature 97.8 F Pulse Rate 77 77 79 Respiratory Rate 15 20 16 Blood Pressure 161/71 H Pulse Oximetry 91 06/14/21 22:00 06/14/21 23:47 06/15/21 00:00 Temperature 97.9 F Pulse Rate 66 58 L Respiratory Rate 20 20 Blood Pressure 144/71 H 146/72 H Pulse Oximetry 91 93 93 06/15/21 01:59 06/15/21 02:00 06/15/21 04:00 Temperature 97.9 F Pulse Rate 61 57 L 53 L Respiratory Rate 18 16 16 Blood Pressure 146/71 H 127/58 L Pulse Oximetry 91 92 06/15/21 06:00 06/15/21 07:55 06/15/21 08:00 Temperature 97.9 F Pulse Rate 56 L 62 59 L Respiratory Rate 20 14 15 Blood Pressure 132/66 146/77 H Pulse Oximetry 90 90 90 06/15/21 08:02 06/15/21 08:20 06/15/21 10:00 Temperature Puls
[2021-06-15 17:24] LABS: Glucose Point of Care 334 mg/dl (65-105)
[2021-06-15] MEDS: INSULIN ASPART (*BKC) 100 UNITS/ML 18 UNITS SUB-Q (17:59)
[2021-06-15] MEDS: INSULIN GLARGINE (*BKC) 100 UNITS/ML 60 UNITS SUB-Q (20:41)
[2021-06-15] MEDS: INSULIN ASPART (*BKC) 100 UNITS/ML 8 UNITS SUB-Q (20:45)
[2021-06-15 20:50] LABS: Glucose Point of Care 424 mg/dl (65-105)
[2021-06-15] MEDS: SODIUM CHLORIDE NASAL GEL 14.1 GM 1 APPLIC NASAL (21:12)
[2021-06-16] VITALS (17 sets, daily range): BP systolic 150–166; BP diastolic 65–89; PULSE 60–98; RESP 16–18; TEMP 35.9–36.4; O2SAT 90–95
[2021-06-16] MEDS: hydrALAZINE HCL 50 MG TABLET PO ×3 (00:26→16:50)
[2021-06-16 00:35] LABS: Glucose Point of Care 272 mg/dl (65-105)
[2021-06-16] MEDS: IPRATROPIUM BR 0.02% INH SOLN 0.5 MG/2.5 ML VIAL INHALATION ×4 (02:11→20:45)
[2021-06-16] MEDS: ALBUTEROL SULFATE NEB 2.5 MG/0.5 ML INH INHALATION ×4 (02:11→20:45)
[2021-06-16 04:09] LABS: Glucose Point of Care 242 mg/dl (65-105)
[2021-06-16 04:48] LABS: Basophils Percent Auto 0.2 % (0.2-1.2); Eosinophils Percent Auto 0.1 % (0-4.4); Hematocrit 50.7 % (42.0-52.0); Hemoglobin 16.4 g/dL (14.0-18.0); Immature Granulocyte Absolute 0.08 K/mm3 (0.00-0.031); Immature Granulocyte Percent A 0.6 % (0-0.5); Lymphocytes Absolute Auto 1.77 K/mm3 (0.9-3.2); Lymphocytes Percent Auto 14.2 % (18.3-44.2); Mean Corpuscular HGB Conc 32.3 g/dl (32-36); Mean Corpuscular Hemoglobin 30.5 pg (26-34); Mean Corpuscular Volume 94.4 fl (80-100); Mean Platelet Volume 12.5 fl (7.4-10.4); Monocytes Absolute Auto 0.8 K/mm3 (0.1-0.6); Monocytes Percent Auto 6.5 % (2.6-8.5); Neutrophils Absolute Auto 9.8 K/mm3 (1.3-6.7); Neutrophils Percent Auto 78.4 % (45.5-73.1); Platelet Count Result 165 k/mm3 (150-375); Red Blood Count 5.37 M/mm3 (4.6-6.20); Red Cell Distribution Width 13.2 % (11.5-14.5); White Blood Count 12.5 K/mm3 (4.5-10.0)
[2021-06-16 05:28] LABS: Alanine Aminotransferase 27 U/L (4-50); Albumin Level 2.9 g/dL (3.5-5.1); Alkaline Phosphatase 65 U/L (38-126); Anion Gap 3 mmol/L (8-16); Aspartate Amino Transferase 43 U/L (17-59); Bilirubin,Total 0.6 mg/dL (0.2-1.3); Blood Urea Nitrogen 40 mg/dL (9-20); Calcium 8.6 mg/dL (8.4-10.2); Carbon Dioxide 35 mmol/L (22-30); Chloride 97 mmol/L (98-107); Estimated CRCL calculation 94 ml/min; Estimated Glomerular Filt Rate > 60; Glucose 230 mg/dL (65-110); Magnesium 2.9 mg/dL (1.6-2.3); Phosphorus 4.1 mg/dL (2.5-4.5); Potassium 4.4 mmol/L (3.4-5.0); Sodium 135 mmol/L (137-145)
[2021-06-16] MEDS: guaiFENesin 12 HR 600 MG TABCR 1200 MG PO ×2 (07:59→20:32)
[2021-06-16] MEDS: ENOXAPARIN 40 MG/0.4 ML SYRINGE SUB-Q (08:00)
[2021-06-16] MEDS: ROSUVASTATIN 10 MG TABLET 20 MG PO (08:00)
[2021-06-16] MEDS: METOPROLOL SUCCINATE EXT REL 100 MG TABCR PO (08:01)
[2021-06-16] MEDS: NICOTINE (*PBKC) 21 MG PATCH 1 PATCH TRANSDERM (08:02)
[2021-06-16] MEDS: AZITHROMYCIN 250 MG TABLET 500 MG PO (08:02)
[2021-06-16] MEDS: POTASSIUM CHLORIDE 10 MEQ TABLET.ER PO (08:02)
[2021-06-16] MEDS: methylPREDNISolone SOD SUCC 125 MG VIAL 60 MG IV PUSH (08:05)
[2021-06-16] MEDS: FUROSEMIDE INJ 40 MG/4 ML VIAL IV PUSH (08:05)
[2021-06-16] MEDS: INSULIN GLARGINE (*BKC) 100 UNITS/ML 40 UNITS SUB-Q (08:12)
[2021-06-16 08:16] LABS: Glucose Point of Care 186 mg/dl (65-105)
[2021-06-16] MEDS: INSULIN ASPART (*BKC) 100 UNITS/ML 18 UNITS SUB-Q ×3 (09:36→17:26)
--- NOTE | 2021-06-16 11:49 | PM.IMPN ---
Progress Note: A&P Assessment and Plan (1) Diabetes mellitus with hyperglycemia, with long-term current use of insulin: Code(s): E11.65 - Type 2 diabetes mellitus with hyperglycemia; Z79.4 - termite control representative (current) use of insulin Status: Acute Assessment and Plan: uncontrolled hyperglycemia secondary to steroids. patient was started on IV insulin infusion overnight Q1H sugars were checked. -patient was transition to long-acting insulin along with sliding scale insulin and additional insulin with meals on 06/15/2021 -patient tolerating diabetic diet t -will increase a.m. Lantus to 40 units SQ -on high-dose sliding scale -steroids have been decreased (2) Respiratory failure: Qualifiers: Chronicity: acute on chronic Respiratory failure complication: hypoxia and hypercapnia Qualified Code(s): J96.21 - Acute and chronic respiratory failure with hypoxia; J96.22 - Acute and chronic respiratory failure with hypercapnia Code(s): J96.90 - Respiratory failure, unspecified, unspecified whether with hypoxia or hypercapnia Status: Acute Assessment and Plan: secondary to COPD and CHF exacerbation Patient requiring supplemental oxygen by nasal cannula and humidifier on. Continue bronchodilators Continue Solu-Medrol continue Lasix but change to q.a.m. since I do not see any significant edema on the legs now COVID PCR negative CTA reviewed and showed no acute findings. Bilateral lower extremity venous Doppler negative for DVT . The patient also reports orthopnea paroxysmal nocturnal dyspnea is associated with lower extremity edema. I suspect there is also some component of CHF exacerbation. IV Lasix -echocardiogram done on 06/14/2021 showed normal LV size, moderate LVH, hyperdynamic LV systolic function with EF of 70%: Normal diastolic function, mild biatrial enlargement mild aortic valve sclerosis Regarding the suspected COPD. IV Solu-Medrol will be continued as well as scheduled inhalers with albuterol. -will have pulmonology evaluate the patient The patient has received his vaccines for COVID including the booster. COVID PCR negative on 06/12/2021 (3) COPD exacerbation: Code(s): J44.1 - Chronic obstructive pulmonary disease with (acute) exacerbation Status: Acute Assessment and Plan: Given the patient's history of chronic tobacco use, obstructive sleep apnea, elevated hematocrit, prior history of CO2 retention he likely has COPD and chronic hypoxic hypercapnic respiratory failure. he would benefit from PFTs outpatient once feeling better -pulmonology has been consulted continue supplemental oxygen bronchodilators and steroids at this time in light of increased dyspnea and increased sputum production will start a short course of antibiotic for COPD exacerbation -on p.o. azithromycin (4) CHF (congestive heart failure): Qualifiers: Heart failure type: unspecified Heart failure chronicity: acute on chronic Qualified Code(s): I50.9 - Heart failure, unspecified Code(s): I50.9 - Heart failure, unspecified Status: Acute Assessment and Plan: patient likely has a right heart failure secondary to chronic lung disease. cor pulmonale echocardiogram reviews and shows right ventricular chamber distension it would be consistent with history of chronic lower extremity edema continue Lasix for decreased does (5) Person under investigation for COVID-19: Code(s): Z20.822 - Contact with and (suspected) exposure to COVID-19 Status: Acute Assessment and Plan: COVID-19 was suspected. SARS-CoV-2 PCR sent and is negative (6) Uncontrolled hypertension: Code(s): I10 - Essential (primary) hypertension Status: Acute Assessment and Plan: Continue hydralazine, metoprolol (7) Continuous tobacco abuse: Code(s): Z72.0 - Tobacco use Status: Acute Assessment and Plan: I have counseled and e
--- NOTE | 2021-06-16 12:15 | PCDIET ---
ICU Rounding Note: Patient consuming 100% of meals on diabetic diet. Last recorded weight is 106.2kg which is stable. Bowel Motility: BM x 2 on 06/15/21. Labs Reviewed: WBC (15.4), Hct (53.0), Glu (115), BUN (39), Alb (3.3) Meds Noted: Albuterol, Zithromax, Lasix, Apresoline, Lantus, Atrovent, Solu Medrol, Toprol XL, KCl, Crestor Additional Notes: No documented skin breakdown. Following daily in ICU rounds. Assessing/reassessing every 7 days.
[2021-06-16 12:35] LABS: Glucose Point of Care 201 mg/dl (65-105)
--- NOTE | 2021-06-16 12:36 | PM.CNPUL ---
Assessment and Plan Assessment and plan (1) COPD exacerbation: Code(s): J44.1 - Chronic obstructive pulmonary disease with (acute) exacerbation Status: Acute Assessment and Plan: 60-year-old man with shortness of breath cough and wheezing for 2 weeks due to COPD exacerbation, treated in the intensive care unit with IV steroids antibiotics and bronchodilators. respiratory status has improved although patient continues to have hyperinflated lungs with poor air entry. There is no pulmonary function testing available and patient refused arterial blood gases. Chest imaging studies were otherwise unremarkable. Elevated bicarbonate could be due to chronic hypercapnia and/or diuretic-induced metabolic alkalosis. He has had elevated eosinophils in the range of approximately 300 since 2018 which in conjunction with the CT findings and the evidence of severe hyperinflation on PE raises the question of asthma COPD overlap syndrome. Plan as follows. Continue with current bronchodilators, supplemental oxygen, DVT prophylaxis, and current IV steroid dosage. If there is no improvement of lung hyperinflation and poor air entry over the next 24-36 hours, we will consider increasing IV steroids. Patient will need evaluation with a sleep study and pulmonary function testing on an outpatient basis. (2) Respiratory failure: Qualifiers: Chronicity: acute on chronic Respiratory failure complication: hypoxia and hypercapnia Qualified Code(s): J96.21 - Acute and chronic respiratory failure with hypoxia; J96.22 - Acute and chronic respiratory failure with hypercapnia Code(s): J96.90 - Respiratory failure, unspecified, unspecified whether with hypoxia or hypercapnia Status: Acute (3) Continuous tobacco abuse: Code(s): Z72.0 - Tobacco use Status: Acute History of Present Illness History of Present Illness Consult date: 06/16/21 Chief complaint: SOB, Hypoxia Narrative: this 60-year-old man was admitted into the hospital 5 days ago with 2 week history of progressively increasing shortness of breath, cough and lower extremity edema. The patient was in his usual state of health until approximately 2 weeks ago new when he started coughing thick light yellow phlegm. He also noticed shortness of breath on exertion and wheezing. Patient smokes heavily for many years but was not treated for COPD in the past. He stated that many years ago he was tested for COPD and everything came out fine. On admission he was found to be in severe respiratory distress hypoxemic and was transferred to the intensive care unit where he was treated with nebulized short-acting bronchodilators IV steroids antibiotics for COPD exacerbation. patient refused arterial blood gases. Over the last 5 days, he is clinically improved. However he continues to have a shortness of breath and cough. His past medical history significant for diabetes mellitus hypertension coronary artery disease status post stent implantation. The patient has been on a diuretic for chronic lower extremity edema. Approximately 10 years ago he underwent sleep study which reportedly showed no sleep disordered breathing. Review of Systems Review of Systems: The patient He has gained approximately 10 lb over the last few weeks. Patient has had good appetite. Patient denied having fever chills or night sweats. Patient has no chest pain or palpitations. Patient denied having acid reflux symptoms; He had previous esophageal surgery for acid reflux disease.. Patient denied having abdominal pain, diarrhea, constipation, nausea or vomiting. Patient has no urinary complaints. Patient has history of snoring and also history of somnolence. [facility] Past Medical History Medical History ARDS (adult respiratory distress syndrome) (02/2018) Associated with idiopathic necrotizing pancreatitis, acute renal failure and bacteremia
[2021-06-16] MEDS: INSULIN ASPART (*BKC) 100 UNITS/ML SUB-Q ×2 (12:53→17:26)
[2021-06-16 16:47] LABS: Glucose Point of Care 264 mg/dl (65-105)
--- NOTE | 2021-06-16 17:43 | PC.NURSE ---
This patient, Sourav Jeter, was transferred to [[id number]] on 06/16/21 at 1730. Personal belongings sent with patient. Report given to [Nicole PECK]. Appropriate documentation sent with patient.
[2021-06-16] MEDS: SODIUM CHLORIDE NASAL GEL 14.1 GM 1 APPLIC NASAL (20:33)
[2021-06-16] MEDS: INSULIN GLARGINE (*BKC) 100 UNITS/ML 60 UNITS SUB-Q (20:38)
[2021-06-16 22:37] LABS: Glucose Point of Care 275 mg/dl (65-105)
[2021-06-17] VITALS (21 sets, daily range): BP systolic 148–175; BP diastolic 80–92; PULSE 61–91; RESP 14–22; TEMP 36.4–37; O2SAT 79–93
[2021-06-17] MEDS: hydrALAZINE HCL 50 MG TABLET PO ×3 (00:02→15:46)
[2021-06-17 01:47] LABS: Glucose Point of Care 156 mg/dl (65-105)
[2021-06-17] MEDS: IPRATROPIUM BR 0.02% INH SOLN 0.5 MG/2.5 ML VIAL INHALATION ×4 (02:36→20:02)
[2021-06-17] MEDS: ALBUTEROL SULFATE NEB 2.5 MG/0.5 ML INH INHALATION ×4 (02:36→20:02)
[2021-06-17 07:56] LABS: Glucose Point of Care 100 mg/dl (65-105)
--- NOTE | 2021-06-17 09:00 | PM.IMPN ---
Progress Note: A&P Assessment and Plan (1) Diabetes mellitus with hyperglycemia, with long-term current use of insulin: Code(s): E11.65 - Type 2 diabetes mellitus with hyperglycemia; Z79.4 - medical terminologist (current) use of insulin Status: Acute Assessment and Plan: uncontrolled hyperglycemia secondary to steroids. patient was started on IV insulin infusion overnight Q1H sugars were checked. in ICU for insulin drip, transitioned off, sugars well-controlled on SubQ insulin resume diet add a.m. Lantus of 30 units change sliding scale to Q a.c. and HS and high level discontinue insulin drip and transition to subcutaneous insulin steroid dose also been decreased (2) Respiratory failure: Qualifiers: Chronicity: acute on chronic Respiratory failure complication: hypoxia and hypercapnia Qualified Code(s): J96.21 - Acute and chronic respiratory failure with hypoxia; J96.22 - Acute and chronic respiratory failure with hypercapnia Code(s): J96.90 - Respiratory failure, unspecified, unspecified whether with hypoxia or hypercapnia Status: Acute (3) COPD exacerbation: Code(s): J44.1 - Chronic obstructive pulmonary disease with (acute) exacerbation Status: Acute (4) CHF (congestive heart failure): Qualifiers: Heart failure chronicity: acute on chronic Heart failure type: unspecified Qualified Code(s): I50.9 - Heart failure, unspecified Code(s): I50.9 - Heart failure, unspecified Status: Acute (5) Uncontrolled hypertension: Code(s): I10 - Essential (primary) hypertension Status: Acute (6) Continuous tobacco abuse: Code(s): Z72.0 - Tobacco use Status: Acute Assessment and Plan: nicotine patch ordered Additional Plan COPD Exacerbation: pulm on board, recommend continue bronchodilators, supplemental O2, DVT ppx, IV steroids, potentially increasing IV steroids today, appreciate recommendations regarding this; needs outpatient sleep study and PFT Hyperglycemia: noted pt is on steroids, but even still sugars have been exceptionally difficult to control, even requiring insulin drip in ICU for persistently elevated blood glucose >500; Seem to have found an apprioriate regimen for him: 60 Lantus at night, 40 in am, 18 with meals and sliding scale. Suspect pt has brittle diabetes; will need very involved outpatient management of sugars incl PCP and potentially endo/staffing specialist. Time Spent With Patient Time with patient: less than 15 minutes Subjective Date/time seen: 06/17/21 09:00 no acute complaints coughing occasionally bothers him Review of Systems Review of Systems: All systems reviewed & are unremarkable except as noted in HPI and below Exam Const: General: no acute distress Neck: Neck: no JVD Resp: Effort & Inspection: normal respiratory effort Auscultation: clear to auscultation bilaterally Other: occasionally coughin during interview Cardio: Rate: regular rate Rhythm: regular rhythm GI: Inspection: non-distended Objective Data Vital Signs Vital Signs: Vital Signs - 24 hr 06/16/21 13:25 06/16/21 13:33 06/16/21 16:00 Temperature 96.7 F L Pulse Rate 68 98 77 Respiratory Rate 18 18 18 Blood Pressure 166/89 H Pulse Oximetry 92 06/16/21 17:30 06/16/21 20:00 06/16/21 20:45 Temperature 97.3 F L Pulse Rate 72 69 Respiratory Rate 16 18 Blood Pressure 160/86 H Pulse Oximetry 93 92 06/16/21 20:49 06/16/21 20:59 06/17/21 00:00 Temperature 97.5 F L Pulse Rate 69 72 68 Respiratory Rate 18 18 Blood Pressure 175/92 H Pulse Oximetry 91 92 06/17/21 02:37 06/17/21 02:44 06/17/21 02:48 Temperature Pulse Rate 61 61 63 Respiratory Rate 18 18 Blood Pressure Pulse Oximetry 92 Intake/Output Intake/Output: Intake & Output 06/14/21 06/15/21 06/16/21 06/17/21 23:59 23:59 23:59 23:59 Intake Total 1230 2562.5 1455 750 Output Total 3250 1700 1575 -2019
--- NOTE | 2021-06-17 09:20 | PM.PNPUL ---
Progress Note: A&P Assessment and Plan (1) COPD exacerbation: Code(s): J44.1 - Chronic obstructive pulmonary disease with (acute) exacerbation Status: Acute Assessment and Plan: Patient continues to have cough, mild wheezing and on physical exam there is still lung hyperinflation. Perhaps a little better air entry since yesterday. Upon questioning, the patient stated that he has history of recurrent bronchitis, usually occurring this time of the year. He also had history of frequent nasal nasal congestion, specially when mowing grass. This piece of information along with the elevated eosinophil count on previous testing and current obstructive airway disease may suggest asthma COPD overlap syndrome. Plan: will increase IV steroids to 40 mg IV q.8 hours, and closely monitor respiratory status. He will continue with the same nebulized short-acting bronchodilators , DVT prophylaxis. Need to monitor blood sugar closely. Encourage OOB to chair and ambulation. (2) Respiratory failure: Qualifiers: Chronicity: acute on chronic Respiratory failure complication: hypoxia and hypercapnia Qualified Code(s): J96.21 - Acute and chronic respiratory failure with hypoxia; J96.22 - Acute and chronic respiratory failure with hypercapnia Code(s): J96.90 - Respiratory failure, unspecified, unspecified whether with hypoxia or hypercapnia Status: Acute (3) Continuous tobacco abuse: Code(s): Z72.0 - Tobacco use Status: Acute (4) Diabetes mellitus with hyperglycemia, with long-term current use of insulin: Code(s): E11.65 - Type 2 diabetes mellitus with hyperglycemia; Z79.4 - correction (current) use of insulin Status: Acute Subjective Date/time seen: 06/17/21 09:20 patient continues to cough, thick yellow sputum as before. No fever or other respiratory complaints. Transferred to a Med/surg corral. Review of Systems Review of Systems: The patient He has gained approximately 10 lb over the last few weeks. Patient has had good appetite. Patient denied having fever chills or night sweats. Patient has no chest pain or palpitations. Patient denied having acid reflux symptoms; He had previous esophageal surgery for acid reflux disease.. Patient denied having abdominal pain, diarrhea, constipation, nausea or vomiting. Patient has no urinary complaints. Patient has history of snoring and also history of somnolence. Exam Narrative: GENERAL APPEARANCE: Well developed, well nourished, alert and cooperative; Appears to be in mild respiratory distress while on supplemental oxygen SKIN: Inspection of the skin reveals no rashes, ulcerations or petechiae. HEENT: Sclerae anicteric and conjunctivae pink and moist. Extraocular movements were intact and pupils were equal, round, and reactive to light. The oral mucosa, hard and soft palate, tongue and posterior pharynx were normal. NECK: Supple. There was no thyroid enlargement, and no tenderness, or masses were felt. CHEST: hyperinflated. LUNGS: Auscultation of the lungs revealed distant breath sounds due to poor air entry, hyperinflated lungs no wheezing. CARDIAC: There was a regular rate and rhythm without any murmurs, gallops, rubs. ABDOMEN: Soft and nontender with normal bowel sounds. There was no organomegaly. LYMPH NODES: No lymphadenopathy was appreciated in the neck. EXTREMITIES: No cyanosis, clubbing or edema. NEUROLOGIC: Alert and oriented x 3. Normal affect. Objective Data Vital Signs Vital Signs: Vital Signs - 24 hr 06/16/21 13:25 06/16/21 13:33 06/16/21 16:00 Temperature 35.9 C L Pulse Rate 68 98 77 Respiratory Rate 18 18 18 Blood Pressure 166/89 H Pulse Oximetry 92 06/16/21 17:30 06/16/21 20:00 06/16/21 20:45 Temperature 36.3 C L Pulse Rate 72 69 Respiratory Rate 16 18 Blood Pressure 160/86 H Pulse Oximetry 93 92 06/16/21 20:49 06/16/21 20:59 06/17/21 00:00 Temperature 36.4 C L Pulse
[2021-06-17] MEDS: INSULIN GLARGINE (*BKC) 100 UNITS/ML 40 UNITS SUB-Q (09:30)
[2021-06-17] MEDS: INSULIN ASPART (*BKC) 100 UNITS/ML 18 UNITS SUB-Q ×3 (09:30→17:32)
[2021-06-17] MEDS: NICOTINE (*PBKC) 21 MG PATCH 1 PATCH TRANSDERM (09:33)
[2021-06-17] MEDS: ENOXAPARIN 40 MG/0.4 ML SYRINGE SUB-Q (09:33)
[2021-06-17] MEDS: ROSUVASTATIN 10 MG TABLET 20 MG PO (09:33)
[2021-06-17] MEDS: AZITHROMYCIN 250 MG TABLET 500 MG PO (09:34)
[2021-06-17] MEDS: guaiFENesin 12 HR 600 MG TABCR 1200 MG PO ×2 (09:34→20:37)
[2021-06-17] MEDS: POTASSIUM CHLORIDE 10 MEQ TABLET.ER PO (09:34)
[2021-06-17] MEDS: FUROSEMIDE INJ 40 MG/4 ML VIAL IV PUSH (09:35)
[2021-06-17] MEDS: METOPROLOL SUCCINATE EXT REL 100 MG TABCR PO (09:35)
[2021-06-17 12:01] LABS: Glucose Point of Care 135 mg/dl (65-105)
[2021-06-17] MEDS: methylPREDNISolone SOD SUCC 40 MG VIAL IV PUSH ×2 (14:23→20:37)
--- NOTE | 2021-06-17 14:44 | HOMEO2EVAL ---
Evaluation was performed at [facility] Home Oxygen Evaluation RC: Home Oxygen (O2) Evaluation Start: 06/17/21 11:14 Freq: ONCE Status: Active Protocol: RPE Activity Type Activity Date Activity User E-Sign Co-Sign Detail Recorded Client Recorded Date Recorded By Document 06/17/21 14:00 ANGELA [email or web address] 06/17/21 14:39 ANGELA Document 06/17/21 14:01 ANGELA [email or web address] 06/17/21 14:39 ANGELA Document 06/17/21 14:02 ANGELA [email or web address] 06/17/21 14:39 ANGELA Document 06/17/21 14:03 ANGELA [email or web address] 06/17/21 14:39 ANGELA Document 06/17/21 14:04 ANGELA [email or web address] 06/17/21 14:39 ANGELA Document 06/17/21 14:20 ANGELA [email or web address] 06/17/21 14:39 ANGELA 06/17/21 06/17/21 06/17/21 14:00 14:01 14:02 Home O2 Evaluation Test Phase Resting Resting Resting Oxygen Delivery Room Air Nasal Cannula Nasal Cannula Oxygen Flow Rate (L/min) 1 2 Pulse Oximetry (90-100 %) 85 L 86 L 87 L Pulse Rate (60-100 beats/min) 91 Ambulation Distance (feet) Home Oxygen Evaluation Comments Treatment Charges O2 Evaluation - Inpatient 06/17/21 06/17/21 06/17/21 14:03 14:04 14:20 Home O2 Evaluation Test Phase Resting Exercise Resting Oxygen Delivery Nasal Cannula Nasal Cannula Nasal Cannula Oxygen Flow Rate (L/min) 3 3 3 Pulse Oximetry (90-100 %) 92 89 L 93 Pulse Rate (60-100 beats/min) 89 72 Ambulation Distance (feet) 150 Home Oxygen Evaluation Comments Pt requires 3L O2 with rest and activity Treatment Charges
--- NOTE | 2021-06-17 14:45 | PCRCNOTE ---
Home O2 eval completed. Home O2 needed at 3 L rest and with activity. Setting up New home o2 with [facility]. all paperwork has been faxed. will take tank to room prior to d/c.
--- NOTE | 2021-06-17 15:15 | PCRCNOTE ---
CHANGED HOME O2 ORDER TO [facility] PROVIDER PER VALENTINE.
[2021-06-17 17:36] LABS: Glucose Point of Care 89 mg/dl (65-105)
--- NOTE | 2021-06-17 17:38 | PC.NURSE ---
gave patient two salome crackers and pudding while giving scheduled 18 units of insulin
[2021-06-17] MEDS: INSULIN GLARGINE (*BKC) 100 UNITS/ML 60 UNITS SUB-Q (20:35)
[2021-06-17] MEDS: SODIUM CHLORIDE NASAL GEL 14.1 GM 1 APPLIC NASAL (20:38)
--- NOTE | 2021-06-17 20:51 | PC.NURSE ---
patient very irritated during med pass.. saying he is disappointed with this place but would not elaborate. I asked if there was anything I could do to make things better and he said nothing was my fault ... will continue to check in with him.
[2021-06-17 21:10] LABS: Glucose Point of Care 355 mg/dl (65-105)
[2021-06-18] VITALS (14 sets, daily range): BP systolic 157–166; BP diastolic 78–89; PULSE 66–82; RESP 12–24; TEMP 36.6–36.8; O2SAT 85–97
[2021-06-18] MEDS: hydrALAZINE HCL 50 MG TABLET PO ×3 (00:14→15:23)
[2021-06-18 00:18] LABS: Glucose Point of Care 321 mg/dl (65-105)
[2021-06-18] MEDS: ALBUTEROL SULFATE NEB 2.5 MG/0.5 ML INH INHALATION ×4 (02:12→20:19)
[2021-06-18] MEDS: IPRATROPIUM BR 0.02% INH SOLN 0.5 MG/2.5 ML VIAL INHALATION ×4 (02:12→20:19)
[2021-06-18 04:00] LABS: Glucose Point of Care 233 mg/dl (65-105)
[2021-06-18] MEDS: methylPREDNISolone SOD SUCC 40 MG VIAL IV PUSH ×2 (05:51→20:45)
[2021-06-18 06:03] LABS: Basophils Percent Auto 0.2 % (0.2-1.2); Hematocrit 56.5 % (42.0-52.0); Hemoglobin 18.1 g/dL (14.0-18.0); Immature Granulocyte Absolute 0.09 K/mm3 (0.00-0.031); Immature Granulocyte Percent A 0.7 % (0-0.5); Lymphocytes Absolute Auto 1.46 K/mm3 (0.9-3.2); Lymphocytes Percent Auto 11.3 % (18.3-44.2); Mean Corpuscular Hemoglobin 30.6 pg (26-34); Mean Corpuscular Volume 95.6 fl (80-100); Mean Platelet Volume 12.2 fl (7.4-10.4); Monocytes Absolute Auto 0.5 K/mm3 (0.1-0.6); Monocytes Percent Auto 3.6 % (2.6-8.5); Neutrophils Absolute Auto 10.9 K/mm3 (1.3-6.7); Neutrophils Percent Auto 84.2 % (45.5-73.1); Platelet Count Result 171 k/mm3 (150-375); Red Blood Count 5.91 M/mm3 (4.6-6.20); Red Cell Distribution Width 12.6 % (11.5-14.5); White Blood Count 12.9 K/mm3 (4.5-10.0)
[2021-06-18 06:15] LABS: Alanine Aminotransferase 42 U/L (4-50); Albumin Level 3.2 g/dL (3.5-5.1); Alkaline Phosphatase 73 U/L (38-126); Anion Gap 4 mmol/L (8-16); Aspartate Amino Transferase 35 U/L (17-59); Bilirubin,Total 0.5 mg/dL (0.2-1.3); Blood Urea Nitrogen 27 mg/dL (9-20); Calcium 8.9 mg/dL (8.4-10.2); Carbon Dioxide 37 mmol/L (22-30); Chloride 96 mmol/L (98-107); Estimated CRCL calculation 95 ml/min; Estimated Glomerular Filt Rate > 60; Glucose 222 mg/dL (65-110); Magnesium 2.6 mg/dL (1.6-2.3); Phosphorus 3.8 mg/dL (2.5-4.5); Potassium 4.6 mmol/L (3.4-5.0); Sodium 137 mmol/L (137-145)
[2021-06-18 07:41] LABS: Glucose Point of Care 214 mg/dl (65-105)
[2021-06-18] MEDS: INSULIN ASPART (*BKC) 100 UNITS/ML 18 UNITS SUB-Q ×3 (08:37→17:05)
[2021-06-18] MEDS: INSULIN ASPART (*BKC) 100 UNITS/ML SUB-Q ×3 (08:37→17:05)
[2021-06-18] MEDS: INSULIN GLARGINE (*BKC) 100 UNITS/ML 40 UNITS SUB-Q (08:38)
[2021-06-18] MEDS: NICOTINE (*PBKC) 21 MG PATCH 1 PATCH TRANSDERM (08:40)
[2021-06-18] MEDS: ENOXAPARIN 40 MG/0.4 ML SYRINGE SUB-Q (08:40)
[2021-06-18] MEDS: ROSUVASTATIN 10 MG TABLET 20 MG PO (08:43)
[2021-06-18] MEDS: AZITHROMYCIN 250 MG TABLET 500 MG PO (08:43)
[2021-06-18] MEDS: guaiFENesin 12 HR 600 MG TABCR 1200 MG PO ×2 (08:43→20:45)
[2021-06-18] MEDS: POTASSIUM CHLORIDE 10 MEQ TABLET.ER PO (08:43)
[2021-06-18] MEDS: FUROSEMIDE INJ 40 MG/4 ML VIAL IV PUSH (08:44)
[2021-06-18] MEDS: METOPROLOL SUCCINATE EXT REL 100 MG TABCR PO (08:44)
--- NOTE | 2021-06-18 11:02 | PM.PNPUL ---
Progress Note: A&P Assessment and Plan (1) COPD exacerbation: Code(s): J44.1 - Chronic obstructive pulmonary disease with (acute) exacerbation Status: Acute Assessment and Plan: respiratory status is improving slowly. Patient has less cough and less hyperinflation on physical exam, better air entry since yesterday. Plan: will decrease IV steroids to 40 mg IV q.12 hours, and closely monitor respiratory status. Hopefully will be able to switch to oral steroids in a.m. He will continue with the same nebulized short-acting bronchodilators , DVT prophylaxis. Need to monitor blood sugar closely. Encourage OOB to chair and ambulation. (2) Respiratory failure: Qualifiers: Chronicity: acute on chronic Respiratory failure complication: hypoxia and hypercapnia Qualified Code(s): J96.21 - Acute and chronic respiratory failure with hypoxia; J96.22 - Acute and chronic respiratory failure with hypercapnia Code(s): J96.90 - Respiratory failure, unspecified, unspecified whether with hypoxia or hypercapnia Status: Acute (3) Continuous tobacco abuse: Code(s): Z72.0 - Tobacco use Status: Acute (4) Diabetes mellitus with hyperglycemia, with long-term current use of insulin: Code(s): E11.65 - Type 2 diabetes mellitus with hyperglycemia; Z79.4 - detention (current) use of insulin Status: Acute Subjective Date/time seen: 06/18/21 11:02 Patient still coughing, less than before. Has no wheezing or any new respiratory symptoms. He feels better today. He took shower earlier today with not much shortness of breath. Review of Systems Review of Systems: The patient He has gained approximately 10 lb over the last few weeks. Patient has had good appetite. Patient denied having fever chills or night sweats. Patient has no chest pain or palpitations. Patient denied having acid reflux symptoms; He had previous esophageal surgery for acid reflux disease.. Patient denied having abdominal pain, diarrhea, constipation, nausea or vomiting. Patient has no urinary complaints. Patient has history of snoring and also history of somnolence. Exam Narrative: GENERAL APPEARANCE: Well developed, well nourished, alert and cooperative, and appears to be in no acute distress SKIN: Inspection of the skin reveals no rashes, ulcerations or petechiae. HEENT: Sclerae anicteric and conjunctivae pink and moist. Extraocular movements were intact and pupils were equal, round, and reactive to light. The oral mucosa, hard and soft palate, tongue and posterior pharynx were normal. NECK: Supple. There was no thyroid enlargement, and no tenderness, or masses were felt. CHEST: Normal AP diameter and normal contour without any kyphoscoliosis. LUNGS: Auscultation of the lungs revealed distant breath sounds without any wheezing.less hyperinflation. CARDIAC: There was a regular rate and rhythm without any murmurs, gallops, rubs. ABDOMEN: Soft and nontender with normal bowel sounds. There was no organomegaly. LYMPH NODES: No lymphadenopathy was appreciated in the neck. EXTREMITIES: No cyanosis, clubbing or edema. NEUROLOGIC: Alert and oriented x 3. Normal affect. Objective Data Vital Signs Vital Signs: Vital Signs - 24 hr 06/17/21 14:00 06/17/21 14:01 06/17/21 14:02 Temperature Pulse Rate 91 Respiratory Rate Blood Pressure Pulse Oximetry 85 L 86 L 87 L 06/17/21 14:03 06/17/21 14:04 06/17/21 14:20 Temperature Pulse Rate 89 72 Respiratory Rate Blood Pressure Pulse Oximetry 92 89 L 93 06/17/21 14:31 06/17/21 14:39 06/17/21 14:49 Temperature 36.8 C Pulse Rate 70 68 70 Respiratory Rate 18 18 14 Blood Pressure 148/80 H Pulse Oximetry 92 06/17/21 20:04 06/17/21 20:24 06/17/21 21:41 Temperature 37.0 C Pulse Rate 86 84 80 Respiratory Rate 22 H 20 20 Blood Pressure 160/80 H Pulse Oximetry 93 06/18/21 02:11 06/18/21 02:18 06/18/21 05:36 Temperature
[2021-06-18 12:11] LABS: Glucose Point of Care 283 mg/dl (65-105)
[2021-06-18 15:29] LABS: Glucose Point of Care 291 mg/dl (65-105)
--- NOTE | 2021-06-18 15:32 | PCRCNOTE ---
Window of time for administration has passed. See next scheduled administration.
[2021-06-18 16:20] LABS: Alveolar/Arterial O2 Gradient 44.7 mmHg; Base Excess ABG 8.5 mEq/l (+/-2.0); Fractional Inspired Oxygen 21 %; HCO3 ABG 34.2 mEq/l (22.0-26.0); Oxygen Content ABG 21.7 %vol (16.0-22.0); Oxyhemoglobin 84.4 % THb (90.0-100.0); PCO2 ABG 48.8 mmHg (35.0-45.0); PO2 FiO2 Ratio Arterial Blood 2.22 %; Total Hemoglobin 18.4 g/dL (12.0-18.0); pH ABG 7.463 (7.350-7.450)
[2021-06-18 16:22] LABS: PO2 ABG 46.6 mmHg (80.0-100.0)
[2021-06-18 16:23] LABS: Device ROOM AIR; Modified Allen's Test Pass; Oxygen Saturation ABG 84.4 % (95.0-100.0); Site Drawn RIGHT RADIAL
[2021-06-18 16:54] LABS: Glucose Point of Care 310 mg/dl (65-105)
--- NOTE | 2021-06-18 18:58 | PM.IMPN ---
Progress Note: A&P Assessment and Plan (1) COPD exacerbation: Code(s): J44.1 - Chronic obstructive pulmonary disease with (acute) exacerbation Status: Acute (2) Diabetes mellitus with hyperglycemia, with long-term current use of insulin: Code(s): E11.65 - Type 2 diabetes mellitus with hyperglycemia; Z79.4 - half-way (current) use of insulin Status: Acute (3) Acute on chronic diastolic heart failure: Code(s): I50.33 - Acute on chronic diastolic (congestive) heart failure Status: Acute (4) Acute on chronic respiratory failure with hypoxia: Code(s): J96.21 - Acute and chronic respiratory failure with hypoxia Status: Acute (5) Polycythemia secondary to hypoxia: Code(s): D75.1 - Secondary polycythemia Status: Acute (6) Metabolic alkalosis: Code(s): E87.3 - Alkalosis Status: Acute (7) Obstructive sleep apnea: Code(s): G47.33 - Obstructive sleep apnea (adult) (pediatric) Status: Acute (8) Leukocytosis: Qualifiers: Leukocytosis type: unspecified Qualified Code(s): D72.829 - Elevated white blood cell count, unspecified Code(s): D72.829 - Elevated white blood cell count, unspecified Status: Acute Additional Plan 1. Acute on chronic heart failure exacerbation: -echo with possible diastolic heart failure -patient was receiving IV Lasix 40 mg daily -has been negative thus far; however urine output was not monitored on 06/17 -will increase Lasix to 40 mg b.i.d., daily weights, daily I's and O's, fluid restriction to 1 L -will also give patient 1 dose of Diamox 250 mg today given metabolic alkalosis 2. Acute exacerbation of COPD; possible underlying ACOS: -patient on IV Solu-Medrol which has not been changed to b.i.d. as per Pulmonary -possibly will be converted to p.o. tomorrow -continues to receive p.o. azithromycin 3. Acute hypoxic respiratory failure: -ABGs with severe hypoxia noted. However these ABGs were drawn on room air and patient has been on 3 L of nasal cannula at rest -will repeat ABGs in a.m. along with different changes in management as noted above -will provide CPAP for overnight 4. Metabolic alkalosis with chronic respiratory acidosis: -patient is expected to have chronic respiratory acidosis which has been compensated however is now metabolic alkalosis due to use of Lasix which is required at this time due to CHF exacerbation -will provide patient with Diamox at this time and discuss with Pulmonary in a.m. 5. Leukocytosis possibly secondary to steroid use 6. Polycythemia noted with hemoglobin of 18 secondary to hypoxia Time Spent With Patient Time with patient: 25 - 35 minutes Subjective Date/time seen: 06/18/21 18:58 Interval history: 60-year-old male with past medical history significant for hypertension, coronary artery disease, type 2 diabetes, JENN and suspected COPD presented with shortness of breath. He is being managed as a case of COPD exacerbation with concerns for acute on chronic diastolic heart failure exacerbation as well. He is continuing to receive IV Solu-Medrol and was also started on IV Lasix 40 mg daily. Due to increasing Solu-Medrol requirements patient had labile blood sugars requiring him to be monitored in ICU for blood sugar management. He is currently being managed on the floors for acute hypoxic respiratory failure because of the above-mentioned reasons. Pulmonary is following during this admission and have raise concerns regarding ACOS. He is also noted to have acute metabolic alkalosis with chronic respiratory acidosis due to Lasix use and COPD history. Lasix is being increased to 40 mg b.i.d. and Diamox 250 mg once is also being and and this time. Daily weights have been ordered today and fluid restriction is being initiated as well. Review of Systems Review of Systems: Ten point review of system was conducted which was otherwise negative Exam Const: General: cooperative H
[2021-06-18] MEDS: SODIUM CHLORIDE NASAL GEL 14.1 GM 1 APPLIC NASAL (20:45)
[2021-06-18] MEDS: acetaZOLAMIDE TAB 250 MG TABLET PO (20:48)
[2021-06-19] VITALS (19 sets, daily range): BP systolic 141–152; BP diastolic 69–81; PULSE 62–79; RESP 16–20; TEMP 36.3–37.1; O2SAT 92–96
[2021-06-19] MEDS: ALBUTEROL SULFATE NEB 2.5 MG/0.5 ML INH INHALATION ×5 (00:18→20:09)
[2021-06-19] MEDS: IPRATROPIUM BR 0.02% INH SOLN 0.5 MG/2.5 ML VIAL INHALATION ×5 (00:18→20:10)
[2021-06-19] MEDS: hydrALAZINE HCL 50 MG TABLET PO ×4 (00:30→22:42)
[2021-06-19 04:04] LABS: Glucose Point of Care 321 mg/dl (65-105)
--- NOTE | 2021-06-19 06:12 | PCRCNOTE ---
therapist called to code right before treatment was given. scanned meds but unable to give
--- NOTE | 2021-06-19 06:13 | PCRCNOTE ---
therapist called to code before able to give treatment
[2021-06-19 06:27] LABS: Basophils Absolute Auto 0.1 K/mm3 (0.0-0.1); Basophils Percent Auto 0.3 % (0.2-1.2); Hematocrit 52.4 % (42.0-52.0); Hemoglobin 16.8 g/dL (14.0-18.0); Immature Granulocyte Absolute 0.22 K/mm3 (0.00-0.031); Immature Granulocyte Percent A 1.3 % (0-0.5); Lymphocytes Absolute Auto 1.26 K/mm3 (0.9-3.2); Lymphocytes Percent Auto 7.7 % (18.3-44.2); Mean Corpuscular HGB Conc 32.1 g/dl (32-36); Mean Corpuscular Hemoglobin 30.7 pg (26-34); Mean Corpuscular Volume 95.8 fl (80-100); Mean Platelet Volume 12.5 fl (7.4-10.4); Monocytes Absolute Auto 0.4 K/mm3 (0.1-0.6); Monocytes Percent Auto 2.3 % (2.6-8.5); Neutrophils Absolute Auto 14.5 K/mm3 (1.3-6.7); Neutrophils Percent Auto 88.4 % (45.5-73.1); Platelet Count Result 177 k/mm3 (150-375); Red Blood Count 5.47 M/mm3 (4.6-6.20); Red Cell Distribution Width 12.5 % (11.5-14.5); White Blood Count 16.4 K/mm3 (4.5-10.0)
[2021-06-19 06:30] LABS: Alveolar/Arterial O2 Gradient 105.5 mmHg; Base Excess ABG 3.4 mEq/l (+/-2.0); Device NASAL CANNULA; Fractional Inspired Oxygen 32 %; HCO3 ABG 29.7 mEq/l (22.0-26.0); Modified Allen's Test Pass; Oxygen Content ABG 22.5 %vol (16.0-22.0); Oxygen Saturation ABG 91.9 % (95.0-100.0); Oxyhemoglobin 91.1 % THb (90.0-100.0); PCO2 ABG 50.3 mmHg (35.0-45.0); PO2 ABG 63.8 mmHg (80.0-100.0); PO2 FiO2 Ratio Arterial Blood 1.99 %; Site Drawn LEFT RADIAL; Total Hemoglobin 17.6 g/dL (12.0-18.0); pH ABG 7.389 (7.350-7.450)
[2021-06-19 06:35] LABS: D Dimer 1.02 ug/mL (<0.48)
[2021-06-19 06:48] LABS: Alanine Aminotransferase 63 U/L (4-50); Albumin Level 3.2 g/dL (3.5-5.1); Alkaline Phosphatase 68 U/L (38-126); Anion Gap 4 mmol/L (8-16); Aspartate Amino Transferase 45 U/L (17-59); Bilirubin,Total 0.6 mg/dL (0.2-1.3); Blood Urea Nitrogen 32 mg/dL (9-20); Calcium 8.8 mg/dL (8.4-10.2); Carbon Dioxide 35 mmol/L (22-30); Chloride 95 mmol/L (98-107); Estimated CRCL calculation 79 ml/min; Estimated Glomerular Filt Rate > 60; Glucose 312 mg/dL (65-110); Potassium 4.3 mmol/L (3.4-5.0); Sodium 134 mmol/L (137-145)
[2021-06-19 07:51] LABS: Glucose Point of Care 318 mg/dl (65-105)
[2021-06-19] MEDS: FUROSEMIDE INJ 40 MG/4 ML VIAL IV PUSH ×2 (08:46→16:14)
[2021-06-19] MEDS: ENOXAPARIN 40 MG/0.4 ML SYRINGE SUB-Q (08:47)
[2021-06-19] MEDS: acetaZOLAMIDE TAB 250 MG TABLET PO (08:47)
[2021-06-19] MEDS: METOPROLOL SUCCINATE EXT REL 100 MG TABCR PO (08:48)
[2021-06-19] MEDS: ROSUVASTATIN 10 MG TABLET 20 MG PO (08:49)
[2021-06-19] MEDS: AZITHROMYCIN 250 MG TABLET 500 MG PO (08:49)
[2021-06-19] MEDS: guaiFENesin 12 HR 600 MG TABCR 1200 MG PO ×2 (08:49→19:49)
[2021-06-19] MEDS: POTASSIUM CHLORIDE 10 MEQ TABLET.ER PO (08:50)
[2021-06-19] MEDS: methylPREDNISolone SOD SUCC 40 MG VIAL IV PUSH (08:50)
[2021-06-19] MEDS: INSULIN ASPART (*BKC) 100 UNITS/ML 18 UNITS SUB-Q ×3 (08:52→16:47)
[2021-06-19] MEDS: INSULIN ASPART (*BKC) 100 UNITS/ML SUB-Q ×3 (08:53→16:47)
[2021-06-19] MEDS: INSULIN GLARGINE (*BKC) 100 UNITS/ML 40 UNITS SUB-Q (08:56)
--- NOTE | 2021-06-19 11:06 | PM.PNPUL ---
Progress Note: A&P Assessment and Plan (1) COPD exacerbation: Code(s): J44.1 - Chronic obstructive pulmonary disease with (acute) exacerbation Status: Acute Assessment and Plan: respiratory status is improving slowly. Patient has less cough and less hyperinflation on physical exam, overall better air entry. Plan: will switch to oral prednisone 40 mg daily starting in am, and closely monitor respiratory status. He will continue with the same nebulized short-acting bronchodilators , DVT prophylaxis. Need to monitor blood sugar closely. Encourage OOB to chair and ambulation. We will consider d/c home tomorrow, if clinical condition unchanged. He will require home O2. I would d/c acetazolamide. (2) Respiratory failure: Qualifiers: Chronicity: acute on chronic Respiratory failure complication: hypoxia and hypercapnia Qualified Code(s): J96.21 - Acute and chronic respiratory failure with hypoxia; J96.22 - Acute and chronic respiratory failure with hypercapnia Code(s): J96.90 - Respiratory failure, unspecified, unspecified whether with hypoxia or hypercapnia Status: Acute (3) Continuous tobacco abuse: Code(s): Z72.0 - Tobacco use Status: Acute (4) Diabetes mellitus with hyperglycemia, with long-term current use of insulin: Code(s): E11.65 - Type 2 diabetes mellitus with hyperglycemia; Z79.4 - intermodal truck driver (current) use of insulin Status: Acute Subjective Date/time seen: 06/19/21 11:06 Patient has no new respiratory symptoms today. Anxious to go home. Was found to have low PaO2 on blood gases yesterday while on ambient air. Currently receiving supplemental oxygen at 3 liters/minute. Continues to have mild cough with light yellow sputum production but no wheezing or orthopnea. Review of Systems Review of Systems: All systems reviewed & are unremarkable except as noted in HPI and below (H and P and below) Exam Narrative: GENERAL APPEARANCE: Well developed, well nourished, alert and cooperative, and appears to be in no acute distress SKIN: Inspection of the skin reveals no rashes, ulcerations or petechiae. HEENT: Sclerae anicteric and conjunctivae pink and moist. Extraocular movements were intact and pupils were equal, round, and reactive to light. The oral mucosa, hard and soft palate, tongue and posterior pharynx were normal. NECK: Supple. There was no thyroid enlargement, and no tenderness, or masses were felt. CHEST: Normal AP diameter and normal contour without any kyphoscoliosis. LUNGS: Auscultation of the lungs revealed distant breath sounds without any wheezing; less hyperinflation than before. CARDIAC: There was a regular rate and rhythm without any murmurs, gallops, rubs. ABDOMEN: Soft and nontender with normal bowel sounds. There was no organomegaly. LYMPH NODES: No lymphadenopathy was appreciated in the neck. EXTREMITIES: No cyanosis, clubbing or edema. NEUROLOGIC: Alert and oriented x 3. Normal affect. Objective Data Vital Signs Vital Signs: Vital Signs - 24 hr 06/18/21 14:58 06/18/21 16:12 06/18/21 16:29 Temperature 36.8 C Pulse Rate 80 82 75 Respiratory Rate 12 20 24 H Blood Pressure 157/78 H Pulse Oximetry 90 06/18/21 20:00 06/18/21 20:20 06/18/21 20:21 Temperature Pulse Rate 74 75 Respiratory Rate 18 20 Blood Pressure Pulse Oximetry 93 97 06/18/21 21:36 06/19/21 00:15 06/19/21 00:28 Temperature 36.8 C Pulse Rate 74 75 74 Respiratory Rate 20 18 18 Blood Pressure 166/87 H Pulse Oximetry 93 06/19/21 05:59 06/19/21 08:01 06/19/21 08:48 Temperature 36.5 C 37.1 C Pulse Rate 65 62 64 Respiratory Rate 20 17 Blood Pressure 142/70 H 152/69 H Pulse Oximetry 95 96 06/19/21 08:53 06/19/21 09:02 Temperature Pulse Rate 73 72 Respiratory Rate 18 18 Blood Pressure Pulse Oximetry Intake/Output Intake/Output: Intake & Output 06/16/21 06/17/21 06/18/21 06/19/21 23:59 23:59 23:59 23:5
[2021-06-19 11:43] LABS: Glucose Point of Care 340 mg/dl (65-105)
[2021-06-19 16:41] LABS: Glucose Point of Care 266 mg/dl (65-105)
--- NOTE | 2021-06-19 17:37 | PM.IMPN ---
Progress Note: A&P Assessment and Plan (1) Leukocytosis: Qualifiers: Leukocytosis type: unspecified Qualified Code(s): D72.829 - Elevated white blood cell count, unspecified Code(s): D72.829 - Elevated white blood cell count, unspecified Status: Acute (2) Obstructive sleep apnea: Code(s): G47.33 - Obstructive sleep apnea (adult) (pediatric) Status: Acute (3) Metabolic alkalosis: Code(s): E87.3 - Alkalosis Status: Acute (4) Polycythemia secondary to hypoxia: Code(s): D75.1 - Secondary polycythemia Status: Acute (5) Acute on chronic respiratory failure with hypoxia: Code(s): J96.21 - Acute and chronic respiratory failure with hypoxia Status: Acute (6) Acute on chronic diastolic heart failure: Code(s): I50.33 - Acute on chronic diastolic (congestive) heart failure Status: Acute (7) COPD exacerbation: Code(s): J44.1 - Chronic obstructive pulmonary disease with (acute) exacerbation Status: Acute (8) Diabetes mellitus with hyperglycemia, with long-term current use of insulin: Qualifiers: Diabetes mellitus type: type 2 Qualified Code(s): E11.65 - Type 2 diabetes mellitus with hyperglycemia; Z79.4 - intermodal customer service (current) use of insulin Code(s): E11.65 - Type 2 diabetes mellitus with hyperglycemia; Z79.4 - senior living (current) use of insulin Status: Acute (9) CHF (congestive heart failure): Qualifiers: Heart failure type: unspecified Heart failure chronicity: acute on chronic Qualified Code(s): I50.9 - Heart failure, unspecified Code(s): I50.9 - Heart failure, unspecified Status: Acute (10) Uncontrolled hypertension: Code(s): I10 - Essential (primary) hypertension Status: Acute (11) Respiratory failure: Qualifiers: Chronicity: acute on chronic Respiratory failure complication: hypoxia and hypercapnia Qualified Code(s): J96.21 - Acute and chronic respiratory failure with hypoxia; J96.22 - Acute and chronic respiratory failure with hypercapnia Code(s): J96.90 - Respiratory failure, unspecified, unspecified whether with hypoxia or hypercapnia Status: Acute (12) Continuous tobacco abuse: Code(s): Z72.0 - Tobacco use Status: Acute (13) Hypoxia: Code(s): R09.02 - Hypoxemia Status: Acute Additional Plan 1. Acute on chronic heart failure exacerbation: -echo with possible diastolic heart failure -patient was receiving IV Lasix 40 mg daily will increase to IV Lasix 40 mg b.i.d. -weight gain of 10 kilos since the day of admission. Net I's and O's have only been-600 since admission -limit fluid intake to 1 L per day and please monitor strict I's and O's 2. Acute exacerbation of COPD; possible underlying ACOS: -patient on IV Solu-Medrol which has not been changed to b.i.d. as per Pulmonary and now being converted to p.o. prednisone from tomorrow a.m.. 3. Acute hypoxic respiratory failure: -ABGs with severe hypoxia noted. However these ABGs were drawn on room air and patient has been on 3 L of nasal cannula at rest -will repeat ABGs in a.m. along with different changes in management as noted above -will provide CPAP for overnight 4. Metabolic alkalosis with chronic respiratory acidosis: -patient is expected to have chronic respiratory acidosis which has been compensated however is now metabolic alkalosis due to use of Lasix which is required at this time due to CHF exacerbation -received 1 time Diamox in a.m. which is now being discontinued. 5. Leukocytosis possibly secondary to steroid use 6. Polycythemia noted with hemoglobin of 18 secondary to hypoxia Time Spent With Patient Time with patient: 25 - 35 minutes Subjective Date/time seen: 06/19/21 17:37 Interval history: 60-year-old male with past medical history significant for hypertension, coronary artery disease, type 2 diabetes, JENN and suspected COPD presented with shortne
[2021-06-19] MEDS: SODIUM CHLORIDE NASAL GEL 14.1 GM 1 APPLIC NASAL (19:50)
[2021-06-19 20:05] LABS: Glucose Point of Care 306 mg/dl (65-105)
[2021-06-20] VITALS (17 sets, daily range): BP systolic 141–160; BP diastolic 73–82; PULSE 61–78; RESP 14–20; TEMP 36.4–36.7; O2SAT 93–97
[2021-06-20] MEDS: IPRATROPIUM BR 0.02% INH SOLN 0.5 MG/2.5 ML VIAL INHALATION ×6 (00:41→20:16)
[2021-06-20] MEDS: ALBUTEROL SULFATE NEB 2.5 MG/0.5 ML INH INHALATION ×6 (00:41→20:17)
--- NOTE | 2021-06-20 03:08 | PCRTNOTE ---
pt states he has not needed BIPAP
[2021-06-20 05:00] LABS: Glucose Point of Care 284 mg/dl (65-105)
[2021-06-20 05:52] LABS: Basophils Absolute Auto 0.1 K/mm3 (0.0-0.1); Basophils Percent Auto 0.5 % (0.2-1.2); Eosinophils Percent Auto 0.2 % (0-4.4); Hematocrit 51.7 % (42.0-52.0); Hemoglobin 16.9 g/dL (14.0-18.0); Immature Granulocyte Absolute 0.27 K/mm3 (0.00-0.031); Immature Granulocyte Percent A 1.7 % (0-0.5); Lymphocytes Absolute Auto 3.12 K/mm3 (0.9-3.2); Lymphocytes Percent Auto 19.8 % (18.3-44.2); Mean Corpuscular HGB Conc 32.7 g/dl (32-36); Mean Corpuscular Hemoglobin 30.4 pg (26-34); Mean Platelet Volume 12.4 fl (7.4-10.4); Monocytes Absolute Auto 0.9 K/mm3 (0.1-0.6); Monocytes Percent Auto 5.9 % (2.6-8.5); Neutrophils Absolute Auto 11.3 K/mm3 (1.3-6.7); Neutrophils Percent Auto 71.9 % (45.5-73.1); Platelet Count Result 172 k/mm3 (150-375); Red Blood Count 5.56 M/mm3 (4.6-6.20); Red Cell Distribution Width 12.4 % (11.5-14.5); White Blood Count 15.7 K/mm3 (4.5-10.0)
[2021-06-20 06:01] LABS: Alanine Aminotransferase 53 U/L (4-50); Albumin Level 3.1 g/dL (3.5-5.1); Alkaline Phosphatase 66 U/L (38-126); Anion Gap 5 mmol/L (8-16); Aspartate Amino Transferase 28 U/L (17-59); Bilirubin,Total 0.5 mg/dL (0.2-1.3); Blood Urea Nitrogen 35 mg/dL (9-20); Calcium 9.2 mg/dL (8.4-10.2); Carbon Dioxide 32 mmol/L (22-30); Chloride 100 mmol/L (98-107); Estimated CRCL calculation 72 ml/min; Estimated Glomerular Filt Rate > 60; Glucose 248 mg/dL (65-110); Potassium 4.3 mmol/L (3.4-5.0); Sodium 137 mmol/L (137-145)
[2021-06-20 08:01] LABS: Glucose Point of Care 164 mg/dl (65-105)
[2021-06-20] MEDS: NICOTINE (*PBKC) 21 MG PATCH 1 PATCH TRANSDERM (08:39)
[2021-06-20] MEDS: AZITHROMYCIN 250 MG TABLET 500 MG PO (08:40)
[2021-06-20] MEDS: guaiFENesin 12 HR 600 MG TABCR 1200 MG PO ×2 (08:40→20:56)
[2021-06-20] MEDS: ENOXAPARIN 40 MG/0.4 ML SYRINGE SUB-Q (08:40)
[2021-06-20] MEDS: hydrALAZINE HCL 50 MG TABLET PO ×2 (08:40→17:27)
[2021-06-20] MEDS: ROSUVASTATIN 10 MG TABLET 20 MG PO (08:40)
[2021-06-20] MEDS: FUROSEMIDE INJ 40 MG/4 ML VIAL IV PUSH ×2 (08:41→17:27)
[2021-06-20] MEDS: predniSONE 20 MG TABLET 40 MG PO (08:41)
[2021-06-20] MEDS: POTASSIUM CHLORIDE 10 MEQ TABLET.ER PO (08:41)
[2021-06-20] MEDS: INSULIN GLARGINE (*BKC) 100 UNITS/ML 40 UNITS SUB-Q (08:42)
[2021-06-20] MEDS: INSULIN ASPART (*BKC) 100 UNITS/ML 18 UNITS SUB-Q ×3 (08:42→17:26)
[2021-06-20] MEDS: METOPROLOL SUCCINATE EXT REL 100 MG TABCR PO (08:43)
--- NOTE | 2021-06-20 09:34 | PM.PNPUL ---
Progress Note: A&P Assessment and Plan (1) COPD exacerbation: Code(s): J44.1 - Chronic obstructive pulmonary disease with (acute) exacerbation Status: Acute Assessment and Plan: Respiratory status is improving slowly. From respiratory standpoint the patient can be discharged home on the following medications: Symbicort 160/4.5 2 puffs twice daily, Spiriva Respimat 2.5 2 puffs daily, rescue albuterol inhaler prn; oral prednisone 40 mg po for 3 days, then 30 mg daily for 4 days, then 20 mg daily for 4 days, then 15 gm for 4 days, then 10 mg for 4 days, and then 5 mg for 4 days, then stop. He needs to be evaluated for home O2. Follow up with pulmonary in about 2 weeks. (2) Respiratory failure: Qualifiers: Chronicity: acute on chronic Respiratory failure complication: hypoxia and hypercapnia Qualified Code(s): J96.21 - Acute and chronic respiratory failure with hypoxia; J96.22 - Acute and chronic respiratory failure with hypercapnia Code(s): J96.90 - Respiratory failure, unspecified, unspecified whether with hypoxia or hypercapnia Status: Acute (3) Continuous tobacco abuse: Code(s): Z72.0 - Tobacco use Status: Acute (4) Diabetes mellitus with hyperglycemia, with long-term current use of insulin: Qualifiers: Diabetes mellitus type: type 2 Qualified Code(s): E11.65 - Type 2 diabetes mellitus with hyperglycemia; Z79.4 - terminal clerk (current) use of insulin Code(s): E11.65 - Type 2 diabetes mellitus with hyperglycemia; Z79.4 - terminal clerk (current) use of insulin Status: Acute Subjective Date/time seen: 06/20/21 09:34 patient has no new respiratory symptoms. Continues to have a mild cough but no wheezing. Review of Systems Review of Systems: All systems reviewed & are unremarkable except as noted in HPI and below (H and P and below) Exam Narrative: GENERAL APPEARANCE: Well developed, well nourished, alert and cooperative, and appears to be in no acute distress SKIN: Inspection of the skin reveals no rashes, ulcerations or petechiae. HEENT: Sclerae anicteric and conjunctivae pink and moist. Extraocular movements were intact and pupils were equal, round, and reactive to light. The oral mucosa, hard and soft palate, tongue and posterior pharynx were normal. NECK: Supple. There was no thyroid enlargement, and no tenderness, or masses were felt. CHEST: Normal AP diameter and normal contour without any kyphoscoliosis. LUNGS: Auscultation of the lungs revealed distant breath sounds without any wheezing. CARDIAC: There was a regular rate and rhythm without any murmurs, gallops, rubs. ABDOMEN: Soft and nontender with normal bowel sounds. There was no organomegaly. LYMPH NODES: No lymphadenopathy was appreciated in the neck. EXTREMITIES: No cyanosis, clubbing or edema. NEUROLOGIC: Alert and oriented x 3. Normal affect. Objective Data Vital Signs Vital Signs: Vital Signs - 24 hr 06/19/21 12:00 06/19/21 12:31 06/19/21 12:38 Temperature 36.8 C Pulse Rate 64 75 74 Respiratory Rate 16 18 18 Blood Pressure 150/79 H Pulse Oximetry 94 06/19/21 16:00 06/19/21 16:28 06/19/21 16:35 Temperature 36.6 C Pulse Rate 68 72 74 Respiratory Rate 17 18 18 Blood Pressure 141/81 H Pulse Oximetry 93 06/19/21 20:00 06/19/21 20:10 06/19/21 20:11 Temperature Pulse Rate 79 77 Respiratory Rate 18 18 Blood Pressure Pulse Oximetry 95 95 06/19/21 20:20 06/19/21 22:00 06/20/21 00:41 Temperature 36.3 C L Pulse Rate 79 68 72 Respiratory Rate 18 20 18 Blood Pressure 150/76 H Pulse Oximetry 92 06/20/21 04:27 06/20/21 04:36 06/20/21 06:00 Temperature 36.5 C Pulse Rate 74 78 61 Respiratory Rate 18 18 18 Blood Pressure 160/82 H Pulse Oximetry 97 06/20/21 08:43 06/20/21 08:56 Temperature Pulse Rate 69 70 Respiratory Rate 18 Blood Pressure Pulse Oximetry 96 Intake/Output Intake/Output: Intake & Output 05/21
--- NOTE | 2021-06-20 12:01 | PCRCNOTE ---
ROOM AIR SPO2 CHECK FOR HOME OXYGEN QUALIFICATION. SPO2 86%.
[2021-06-20 12:06] LABS: Glucose Point of Care 170 mg/dl (65-105)
[2021-06-20 17:06] LABS: Glucose Point of Care 252 mg/dl (65-105)
[2021-06-20] MEDS: INSULIN ASPART (*BKC) 100 UNITS/ML SUB-Q (17:27)
--- NOTE | 2021-06-20 18:30 | PM.IMPN ---
Progress Note: A&P Assessment and Plan (1) Metabolic alkalosis: Code(s): E87.3 - Alkalosis Status: Acute (2) Obstructive sleep apnea: Code(s): G47.33 - Obstructive sleep apnea (adult) (pediatric) Status: Acute (3) Leukocytosis: Qualifiers: Leukocytosis type: unspecified Qualified Code(s): D72.829 - Elevated white blood cell count, unspecified Code(s): D72.829 - Elevated white blood cell count, unspecified Status: Acute (4) Polycythemia secondary to hypoxia: Code(s): D75.1 - Secondary polycythemia Status: Acute (5) Acute on chronic respiratory failure with hypoxia: Code(s): J96.21 - Acute and chronic respiratory failure with hypoxia Status: Acute (6) Acute on chronic diastolic heart failure: Code(s): I50.33 - Acute on chronic diastolic (congestive) heart failure Status: Acute (7) COPD exacerbation: Code(s): J44.1 - Chronic obstructive pulmonary disease with (acute) exacerbation Status: Acute (8) Diabetes mellitus with hyperglycemia, with long-term current use of insulin: Qualifiers: Diabetes mellitus type: type 2 Qualified Code(s): E11.65 - Type 2 diabetes mellitus with hyperglycemia; Z79.4 - terminal make up operator (current) use of insulin Code(s): E11.65 - Type 2 diabetes mellitus with hyperglycemia; Z79.4 - jail (current) use of insulin Status: Acute (9) CHF (congestive heart failure): Qualifiers: Heart failure type: unspecified Heart failure chronicity: acute on chronic Qualified Code(s): I50.9 - Heart failure, unspecified Code(s): I50.9 - Heart failure, unspecified Status: Acute Additional Plan 1. Acute on chronic heart failure exacerbation: -echo with possible diastolic heart failure -patient was receiving IV Lasix 40 mg daily and was increased to IV Lasix 40 mg b.i.d. and will be continued for 1 more day. -weight gain of 10 kilos since the day of admission. Net I's and O's have only been-600 since admission -limit fluid intake to 1 L per day and please monitor strict I's and O's -since fluid restriction and I's and O's monitoring patient has lost 5 kilos of weight today 06/20 -patient has been minus returns negative this morning 2. Acute exacerbation of COPD; possible underlying ACOS: -patient on IV Solu-Medrol which has not been changed to b.i.d. as per Pulmonary and now being converted to p.o. prednisone from tomorrow a.m.. 3. Acute hypoxic respiratory failure: -ABGs with severe hypoxia noted. However these ABGs were drawn on room air and patient has been on 3 L of nasal cannula at rest -will repeat ABGs in a.m. along with different changes in management as noted above -will provide CPAP for overnight 4. Metabolic alkalosis with chronic respiratory acidosis: -patient is expected to have chronic respiratory acidosis which has been compensated however is now metabolic alkalosis due to use of Lasix which is required at this time due to CHF exacerbation -received 1 time Diamox in a.m. which is now being discontinued. 5. Leukocytosis possibly secondary to steroid use 6. Polycythemia noted with hemoglobin of 18 secondary to hypoxia Time Spent With Patient Time with patient: 25 - 35 minutes Subjective Date/time seen: 06/20/21 18:30 Interval history: 60-year-old male with past medical history significant for hypertension, coronary artery disease, type 2 diabetes, JENN and suspected COPD presented with shortness of breath. He is being managed as a case of COPD exacerbation with concerns for acute on chronic diastolic heart failure exacerbation as well. For this purpose he received IV Solu-Medrol and IV Lasix 40 mg daily with some improvement of his symptoms. Due to increasing Solu-Medrol requirements patient required ICU level of monitoring for blood sugar management. He is currently being managed on the floors for acute hypoxic respiratory failure because of the above-mentioned reasons.
[2021-06-20] MEDS: ACETYLCYSTEINE 20% INHAL SOLN 800 MG/4 ML VIAL 200 MG INHALATION (20:17)
[2021-06-20 20:38] LABS: Glucose Point of Care 379 mg/dl (65-105)
[2021-06-20 20:38] LABS: Glucose Point of Care 408 mg/dl (65-105)
[2021-06-20] MEDS: SODIUM CHLORIDE NASAL GEL 14.1 GM 1 APPLIC NASAL (20:57)
[2021-06-20] MEDS: INSULIN ASPART (*BKC) 100 UNITS/ML 16 UNITS SUB-Q (21:29)
[2021-06-21] VITALS (16 sets, daily range): BP systolic 141; BP diastolic 79–83; PULSE 63–89; RESP 16–20; TEMP 36.5–36.8; O2SAT 86–95; BMI 29.0
[2021-06-21] MEDS: ALBUTEROL SULFATE NEB 2.5 MG/0.5 ML INH INHALATION ×3 (00:07→09:23)
[2021-06-21] MEDS: IPRATROPIUM BR 0.02% INH SOLN 0.5 MG/2.5 ML VIAL INHALATION ×3 (00:07→09:23)
[2021-06-21] MEDS: hydrALAZINE HCL 50 MG TABLET PO ×2 (00:24→08:51)
[2021-06-21] MEDS: ACETYLCYSTEINE 20% INHAL SOLN 800 MG/4 ML VIAL 200 MG INHALATION ×2 (04:04→09:22)
[2021-06-21 04:38] LABS: Glucose Point of Care 178 mg/dl (65-105)
[2021-06-21 04:38] LABS: Glucose Point of Care 272 mg/dl (65-105)
[2021-06-21 06:06] LABS: Basophils Absolute Auto 0.1 K/mm3 (0.0-0.1); Basophils Percent Auto 0.6 % (0.2-1.2); Eosinophils Absolute Auto 0.1 K/mm3 (0-0.3); Eosinophils Percent Auto 0.3 % (0-4.4); Hematocrit 53.8 % (42.0-52.0); Hemoglobin 17.4 g/dL (14.0-18.0); Lymphocytes Absolute Auto 3.59 K/mm3 (0.9-3.2); Lymphocytes Percent Auto 24.2 % (18.3-44.2); Mean Corpuscular HGB Conc 32.3 g/dl (32-36); Mean Corpuscular Hemoglobin 30.9 pg (26-34); Mean Corpuscular Volume 95.4 fl (80-100); Mean Platelet Volume 12.6 fl (7.4-10.4); Monocytes Percent Auto 6.9 % (2.6-8.5); Neutrophils Absolute Auto 9.8 K/mm3 (1.3-6.7); Platelet Count Result 176 k/mm3 (150-375); Red Blood Count 5.64 M/mm3 (4.6-6.20); Red Cell Distribution Width 12.8 % (11.5-14.5); White Blood Count 14.8 K/mm3 (4.5-10.0)
[2021-06-21 06:16] LABS: Alanine Aminotransferase 53 U/L (4-50); Albumin Level 3.2 g/dL (3.5-5.1); Alkaline Phosphatase 62 U/L (38-126); Anion Gap 4 mmol/L (8-16); Aspartate Amino Transferase 27 U/L (17-59); Bilirubin,Total 0.7 mg/dL (0.2-1.3); Blood Urea Nitrogen 37 mg/dL (9-20); Calcium 9.3 mg/dL (8.4-10.2); Carbon Dioxide 35 mmol/L (22-30); Chloride 102 mmol/L (98-107); Estimated CRCL calculation 58 ml/min; Estimated Glomerular Filt Rate 56; Glucose 163 mg/dL (65-110); Potassium 3.8 mmol/L (3.4-5.0); Sodium 141 mmol/L (137-145)
[2021-06-21 07:55] LABS: Glucose Point of Care 165 mg/dl (65-105)
[2021-06-21] MEDS: INSULIN GLARGINE (*BKC) 100 UNITS/ML 40 UNITS SUB-Q (08:44)
[2021-06-21] MEDS: INSULIN ASPART (*BKC) 100 UNITS/ML 18 UNITS SUB-Q (08:45)
[2021-06-21] MEDS: FUROSEMIDE INJ 40 MG/4 ML VIAL IV PUSH (08:48)
[2021-06-21] MEDS: ENOXAPARIN 40 MG/0.4 ML SYRINGE SUB-Q (08:48)
[2021-06-21] MEDS: NICOTINE (*PBKC) 21 MG PATCH 1 PATCH TRANSDERM (08:49)
[2021-06-21] MEDS: POTASSIUM CHLORIDE 10 MEQ TABLET.ER PO (08:50)
[2021-06-21] MEDS: ROSUVASTATIN 10 MG TABLET 20 MG PO (08:50)
[2021-06-21] MEDS: METOPROLOL SUCCINATE EXT REL 100 MG TABCR PO (08:50)
[2021-06-21] MEDS: guaiFENesin 12 HR 600 MG TABCR 1200 MG PO (08:50)
[2021-06-21] MEDS: predniSONE 20 MG TABLET 40 MG PO (08:50)
--- NOTE | 2021-06-21 10:21 | PCNFU ---
Nutrition Follow-Up Complete: Lack of nutrition related knowledge related to diabetes mellitus as evidenced by patient statements. Goal: Patient to consume 75% of meals or greater. Patient has met current goal. No new goal. Pt current nutrition is DBCC. Last recorded weight is 96.9 kg, down from 106.1 kg on admit. Bowel Motility:+BM reported 06/20 Labs Reviewed:Glu 163, GFR 56, BUN 37, Alb 3.2, Meds Noted:Lasix, Mucinex, Crestor, Novolog, Prednisone, KCL Tab, Lovenox, Lantus. Additional Notes: Nutrition follow up. Patient seen today, states to eating well. Oral Intake has been documented at greater than 75% of meals. Plans for home 02 eval today. Skin: WNL. Agree with diet orders. Monitoring: Follow up every 7 days.
--- NOTE | 2021-06-21 10:44 | PC.NURSE ---
On 06/21/21, the student, [ Radha Noland], provided care and completed [facility] documentation on this patient. I have reviewed the student's documentation and agree with the findings.
--- NOTE | 2021-06-21 11:45 | PM.DS ---
DS: Admitting Diagnosis Discharge Date 06/21/2021 Admitting Diagnosis Shortness of breath DS: Discharge Diagnosis Discharge Diagnosis (1) COPD exacerbation: Code(s): J44.1 - Chronic obstructive pulmonary disease with (acute) exacerbation Status: Acute (2) Acute on chronic diastolic heart failure: Code(s): I50.33 - Acute on chronic diastolic (congestive) heart failure Status: Acute (3) Obstructive sleep apnea: Code(s): G47.33 - Obstructive sleep apnea (adult) (pediatric) Status: Acute (4) Leukocytosis: Qualifiers: Leukocytosis type: unspecified Qualified Code(s): D72.829 - Elevated white blood cell count, unspecified Code(s): D72.829 - Elevated white blood cell count, unspecified Status: Acute DS: Summary Hospital Course Reason for hospitalization: COPD exacerbation CHF exacerbation Hospital Course: 60-year-old male with past medical history significant for hypertension, coronary artery disease, type 2 diabetes, JENN and suspected COPD presented with shortness of breath. He is being managed as a case of COPD exacerbation with concerns for acute on chronic diastolic heart failure exacerbation as well. For this purpose he received IV Solu-Medrol and IV Lasix 40 mg daily with some improvement of his symptoms. Due to increasing Solu-Medrol requirements patient required ICU level of monitoring for blood sugar management. He was then transferred to the floors and managed for acute hypoxic respiratory failure because of the above-mentioned reasons. Pulmonary followed during this admission and raised concerns regarding possible ACOS given eosinophilia. He was also noted to have acute metabolic alkalosis with chronic respiratory acidosis due to Lasix use and COPD history. Lasix is being increased to 40 mg b.i.d. and patient received 1 time Diamox 250 mg. Patient was then transitioned to tapering dose of p.o. prednisone and IV Lasix 40 b.i.d. was noted to be in negative balance of 5 L in addition to weight down to 96 kilos from 110 that was noted to gained during the course of his admission. He is being discharged on increasing dose of p.o. Lasix to 40 mg b.i.d. (which is changed from his home dose of Lasix 60 mg daily). Tapering dose of steroid is also being given to the patient as per Pulmonary recommendations, as follows: Symbicort 160/4.5 2 puffs twice daily, Spiriva Respimat 2.5 2 puffs daily, rescue albuterol inhaler prn; oral prednisone 40 mg po for 3 days, then 30 mg daily for 4 days, then 20 mg daily for 4 days, then 15 gm for 4 days, then 10 mg for 4 days, and then 5 mg for 4 days, then stop. He needs to be evaluated for home O2. Follow up with pulmonary in about 2 weeks. Of note patient's blood blood glucose levels have been extremely elevated and use of steroids. At home he takes Lantus alone for the management of his diabetes however, it is now being changed to Lantus 60 U nightly/AM and humalog 12 units TID WM. He has been suggested to check his blood sugar 4 times a day. Also has been advised to restrict fluids to 1.5 L (6cups) a day and check daily standing weights at the same time each day. He has been recommended to monitor this in a diary and should he gain more than 2 lbs a day, he should contact his PCP, in case an extra dose of diuretic would need to be given. Blood glucose monitoring would be imperative in his case as he has required increasing amounts of insulin while in the hospital. He has been advised to follow with his PCP bee one week of being discharged for further discussion. line assigner was also consulted while patient was admitted, towards the end of his stay to guide him managing the new changes to his medications and diabetic control. Time spent discussing smoking cessation with patient: more than 10 minutes Status at Discharge Overall status at discharge: patient is not back to baseline Time Spent with Patient Time attestation: Total time spent providing a
--- NOTE | 2021-06-21 11:59 | HOMEO2EVAL ---
Evaluation was performed at [facility] Home Oxygen Evaluation RC: Home Oxygen (O2) Evaluation Start: 06/21/21 08:05 Freq: ONCE Status: Active Protocol: RPE Activity Type Activity Date Activity User E-Sign Co-Sign Detail Recorded Client Recorded Date Recorded By Document 06/21/21 11:40 ANGELA [email or web address] 06/21/21 11:59 ANGELA Document 06/21/21 11:41 ANGELA [email or web address] 06/21/21 11:59 ANGELA Document 06/21/21 11:45 ANGELA [email or web address] 06/21/21 11:59 ANGELA Document 06/21/21 11:46 ANGELA [email or web address] 06/21/21 11:59 ANGELA Document 06/21/21 11:47 ANGELA [email or web address] 06/21/21 11:59 ANGELA Document 06/21/21 11:55 ANGELA [email or web address] 06/21/21 11:59 ANGELA 06/21/21 06/21/21 06/21/21 11:40 11:41 11:45 Home O2 Evaluation Test Phase Resting Resting Exercise Oxygen Delivery Room Air Nasal Cannula Nasal Cannula Oxygen Flow Rate (L/min) 1 1 Pulse Oximetry (90-100 %) 87 L 89 L 86 L Pulse Rate (60-100 beats/min) 72 88 Ambulation Distance (feet) Home Oxygen Evaluation Comments Treatment Charges O2 Evaluation - Inpatient 06/21/21 06/21/21 06/21/21 11:46 11:47 11:55 Home O2 Evaluation Test Phase Exercise Exercise Resting Oxygen Delivery Nasal Cannula Nasal Cannula Nasal Cannula Oxygen Flow Rate (L/min) 2 3 1 Pulse Oximetry (90-100 %) 87 L 90 90 Pulse Rate (60-100 beats/min) 89 70 Ambulation Distance (feet) 400 Home Oxygen Evaluation Comments PT REQUIRES 1L AT REST AND 3 L WITH ACTIVITY Treatment Charges
--- NOTE | 2021-06-21 12:03 | PCRCNOTE ---
HOME O2 EVAL WAS REPEATED AGAIN, PT NOW REQUIRES 1 L AT REST AND 3 L WITH ACTIVITY, NEW ORDER WRITTEN AND FAXED WITH NEW EVAL
== END 2021-06-21 13:20 | disposition home or self-care (01) | DRG 291 ==
LOC: ANHED 06-12 02:20 → ANH3MEDSUR 06-12 02:32 → ANHICU 06-15 11:46 → ANH3MEDSUR 06-17 11:04 → ANHICU 06-22 09:54
PROVIDERS: Internal Medicine; Admitting Provider Internal Medicine; Emergency Provider Emergency Medicine; PCP Family Medicine Adolescent Medicine; Visit Provider Internal Medicine
DX: I11.0 Hypertensive heart disease with heart failure (principal); J96.21 Acute and chronic respiratory failure with hypoxia; J96.22 Acute and chronic respiratory failure with hypercapnia; I50.33 Acute on chronic diastolic (congestive) heart failure; J44.1 Chronic obstructive pulmonary disease with (acute) exacerbation; E87.4 Mixed disorder of acid-base balance; M35.1 Other overlap syndromes; I25.10 Atherosclerotic heart disease of native coronary artery without angina pectoris; G47.33 Obstructive sleep apnea (adult) (pediatric); Z79.4 Long term (current) use of insulin; K21.9 Gastro-esophageal reflux disease without esophagitis; E78.5 Hyperlipidemia, unspecified; Z86.718 Personal history of other venous thrombosis and embolism; Z86.711 Personal history of pulmonary embolism; Z95.5 Presence of coronary angioplasty implant and graft; F17.210 Nicotine dependence, cigarettes, uncomplicated; Z20.822 Contact with and (suspected) exposure to COVID-19; E11.65 Type 2 diabetes mellitus with hyperglycemia; D75.1 Secondary polycythemia; T38.0X5A Adverse effect of glucocorticoids and synthetic analogues, initial encounter; Y92.230 Patient room in hospital as the place of occurrence of the external cause; D72.829 Elevated white blood cell count, unspecified
CPT/HCPCS: 36415; 36600; 71045; 71250; 71275; 80048; 80053; 81001; 82805; 82948; 83036; 83605; 83690; 83735; 83880; 84100; 84484; 85025; 85027; 85380; 85610; 85730; 87015; 87116; 87206; 93005; 93306; 93970; 94618; 94640; 96372; 96374; 96375; 96376; 97161; 97165; 99232; 99253; 99285; A9270; C9803; G0378; J0360; J1650; J1815; J1940; J2920; J2930; J7512; Q9967; U0003; U0005

== ENCOUNTER 2021-10-20 08:04 | Outpatient (CLI) | payer BC, SELFPAY ==
[2021-10-20 09:00] VITALS: O2SAT 93
[2021-10-20 09:03] VITALS: O2SAT 86
[2021-10-20 09:04] VITALS: O2SAT 87
[2021-10-20 09:05] VITALS: O2SAT 87
[2021-10-20 09:06] VITALS: O2SAT 91
[2021-10-20 09:15] VITALS: O2SAT 93
--- NOTE | 2021-10-20 10:21 | HOMEO2EVAL ---
Evaluation was performed at [facility] Home Oxygen Evaluation RC: Home Oxygen (O2) Evaluation Start: 10/20/21 10:19 Freq: Status: Active Protocol: RPE Activity Type Activity Date Activity User E-Sign Co-Sign Detail Recorded Client Recorded Date Recorded By Document 10/20/21 09:00 DJO [email or web address] 10/20/21 10:21 DJO Document 10/20/21 09:03 DJO [email or web address] 10/20/21 10:21 DJO Document 10/20/21 09:04 [email or web address] [email or web address] 10/20/21 10:21 DJO Document 10/20/21 09:05 [email or web address] [email or web address] 10/20/21 10:21 DJO Document 10/20/21 09:06 [email or web address] [email or web address] 10/20/21 10:21 DJO Document 10/20/21 09:15 DJO [email or web address] 10/20/21 10:21 DJO 10/20/21 10/20/21 10/20/21 09:00 09:03 09:04 Home O2 Evaluation Test Phase Resting Exercise Exercise Oxygen Delivery Room Air Room Air Nasal Cannula Oxygen Flow Rate (L/min) 1 Pulse Oximetry (90-100 %) 93 86 L 87 L Ambulation Distance (feet) Ambulation Distance (meters) Home Oxygen Evaluation Comments Treatment Charges O2 Evaluation - Outpatient 10/20/21 10/20/21 10/20/21 09:05 09:06 09:15 Home O2 Evaluation Test Phase Exercise Exercise Resting Oxygen Delivery Nasal Cannula Nasal Cannula Room Air Oxygen Flow Rate (L/min) 2 3 Pulse Oximetry (90-100 %) 87 L 91 93 Ambulation Distance (feet) 700 Ambulation Distance (meters) 213.34 Home Oxygen Evaluation Comments PT REQUIRES 3 L WITH ACTIVITY Treatment Charges
--- NOTE | 2021-10-20 13:19 | P.PCNPFT_ITS ---
PFT Procedure Performed PFT Procedure Performed Spirometry with Pre/Post Bronchodilator Plethysmography (Lung Vol) Diffusing Cap (DLCO) Flow Vol Loop PFT Interpretation Lung volumes were measured with the body plethysmography method. The elevated RV is due to air trapping. The remaining lung volumes are unremarkable. Sp irometry showed diminished expiratory flow rates and a diminished FEV1 to FVC ratio 59%, indicative of obstructive airway disease. Following administration of a bronchodilator there was significant increase in expiratory flow rates. Lung diffusion capacity is mildly reduced at 69% predicted. The flow volume loop is consistent with obstructive airway disease. Impression: Moderately severe obstructive airway disease with evidence of air trapping and significant response to bronchodilators on this testing. Mild reduction in lung diffusion capacity.
== END 2021-10-20 08:05 | disposition home or self-care (01) ==
LOC: ANHPFT 08:05
PROVIDERS: PCP Family Medicine Adolescent Medicine; Visit Provider Internal Medicine Pulmonary Disease
DX: J44.9 Chronic obstructive pulmonary disease, unspecified (principal); R94.2 Abnormal results of pulmonary function studies
CPT/HCPCS: 94060; 94618; 94726; 94729

== ENCOUNTER → 2022-01-06 07:46 | Outpatient (CLI) | payer BC, SELFPAY ==
--- NOTE | ~2022-01-06 | MR_ITS ---
EXAMINATION: MR brain IAC wo con DATE: 01/06/2022 08:38 INDICATION: Dizziness and giddiness TECHNIQUE: Magnetic resonance imaging (MRI) of the brain and brainstem was performed without intraven ous contrast. Sequences included sagittal and axial T1-weighted FSE, axial diffusion-weighted FS EPI, axial T2*-weighted GRE, axial T2-weighted FLAIR Propeller, axial T2-weighted Propeller, small field- of-view coronal FIESTA, small [id number] coronal T1-weighted FSE, and small [id number] axial T1 -weighted SPGR. Apparent diffusion coefficient (ADC) maps were created. COMPARISON: None. FINDINGS: There are no areas of restricted diffusion to suggest acute infarction. No intracranial hemorrhage or abnormal intracranial mass lesion. There are few small scattered areas of nonspecific increased T2-w eighted signal intensity in the cerebral white matter, predominantly involving the deep and periventr icular white matter which is within normal limits for age and likely sequela of chronic small vessel ischemic disease. There are mildly prominent perivascular spaces most prominent in the parietal lobe flores radiata as well as in the basal ganglia. There are no intraparenchymal signal abnormalities se en on the other pulse sequences. The ventricles are symmetric and normal in size. There are no abnorm al extra-axial fluid collections. Normal seventh/eighth cranial nerve complexes. No cerebellopontine angles masses. No evidence of mastoid or middle ear fluid. Flow voids are seen in the cerebral arteries on the T2-weigh james sequences consistent with their expected patency. Visualized orbits and soft tissues are unremark able. IMPRESSION: 1. Normal aging brain. Reviewed, dictated and finalized at location A. IMPRESSION: 1. Normal aging brain.
== END ==
PROVIDERS: PCP Family Medicine Adolescent Medicine; Visit Provider Family Medicine Adolescent Medicine
DX: R42 Dizziness and giddiness (principal)
CPT/HCPCS: 70551

== ENCOUNTER 2022-02-07 12:04 | Emergency (ER) | payer BC, SELFPAY ==
--- NOTE | ~2022-02-07 | XR_ITS ---
EXAMINATION: XR chest 2V DATE: 02/07/2022 13:31 INDICATION: Chest pain TECHNIQUE: PA and lateral views of the chest are obtained. COMPARISON: 06/11/2021 FINDINGS: The lungs are free of acute opacities. There is no pleural effusion or pneumothorax. The ca rdiomediastinal silhouette is normal. There is mild thoracic spondylosis. Surgical clips project in t he upper abdomen. IMPRESSION: 1. No acute cardiopulmonary abnormality. Reviewed, dictated and finalized at location A.
--- NOTE | 2022-02-07 12:07 | ECG_ITS ---
Measurements Intervals [place] Rate: 71 P: 78 HI: 194 QRS: -47 QRSD: 125 T: 43 QT: 401 QTc: 437 Interpretive Statements SINUS RHYTHM LEFT AXIS DEVIATION NONSPECIFIC INTRAVENTRICULAR CONDUCTION DELAY COMPARED TO ECG 06/11/2021 22:30:44 CRITERIA FOR SEPTAL INFARCTION NO LONGER PRESENT Electronically Signed On 02-07-2022 15:06:08 CDT by Jayson Bañuelos M.D.
[2022-02-07 12:19] VITALS: BP 155/83; PULSE 71; RESP 18; TEMP 37.1; O2SAT 99
[2022-02-07 12:41] VITALS: O2SAT 93
[2022-02-07 13:16] VITALS: BP 143/82; PULSE 68; RESP 18; O2SAT 94
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
[2022-02-07 13:32] LABS: Basophils Absolute Auto 0.1 K/mm3 (0.0-0.1); Basophils Percent Auto 0.9 % (0.2-1.2); Eosinophils Absolute Auto 0.4 K/mm3 (0-0.3); Eosinophils Percent Auto 2.7 % (0-4.4); Hematocrit 45.6 % (42.0-52.0); Hemoglobin 15.5 g/dL (14.0-18.0); Immature Granulocyte Absolute 0.05 K/mm3 (0.00-0.031); Immature Granulocyte Percent A 0.4 % (0-0.5); Lymphocytes Absolute Auto 3.06 K/mm3 (0.9-3.2); Mean Corpuscular Hemoglobin 30.6 pg (26-34); Mean Corpuscular Volume 90.1 fl (80-100); Mean Platelet Volume 12.1 fl (7.4-10.4); Monocytes Absolute Auto 0.9 K/mm3 (0.1-0.6); Monocytes Percent Auto 7.3 % (2.6-8.5); Neutrophils Absolute Auto 8.3 K/mm3 (1.3-6.7); Neutrophils Percent Auto 64.7 % (45.5-73.1); Platelet Count Result 213 k/mm3 (150-375); Red Blood Count 5.06 M/mm3 (4.6-6.20); Red Cell Distribution Width 13.4 % (11.5-14.5); White Blood Count 12.8 K/mm3 (4.5-10.0)
[2022-02-07 13:40] LABS: Prothrombin Time 12.4 Seconds (11.1-14.7)
[2022-02-07 13:42] LABS: Partial Thromboplastin Time 27.8 SECONDS (22.3-36.8)
[2022-02-07 13:43] LABS: Alanine Aminotransferase 18 U/L (6-50); Albumin Level 3.8 g/dL (3.5-5.1); Alkaline Phosphatase 88 U/L (38-126); Anion Gap 2 mmol/L (8-16); Aspartate Amino Transferase 30 U/L (17-59); Bilirubin,Total 0.4 mg/dL (0.2-1.3); Blood Urea Nitrogen 26 mg/dL (9-20); Calcium 9.1 mg/dL (8.4-10.2); Carbon Dioxide 39 mmol/L (22-30); Chloride 95 mmol/L (98-107); Estimated CRCL calculation 82 ml/min; Estimated Glomerular Filt Rate > 60; Glucose 271 mg/dL (65-110); Lipase 61 U/L (23-300); Potassium 3.4 mmol/L (3.4-5.0); Sodium 136 mmol/L (137-145)
[2022-02-07 13:54] LABS: Troponin I < 0.012 ng/mL (0.000-0.034)
[2022-02-07] MEDS: KETOROLAC 30 MG/ML VIAL (*BKC) IV PUSH (14:00)
== END 2022-02-07 14:18 | disposition home or self-care (01) ==
PROVIDERS: Family Medicine; Emergency Provider Emergency Medicine; PCP Family Medicine Adolescent Medicine
DX: R07.89 Other chest pain (principal); I25.10 Atherosclerotic heart disease of native coronary artery without angina pectoris; E11.9 Type 2 diabetes mellitus without complications; I10 Essential (primary) hypertension; K21.9 Gastro-esophageal reflux disease without esophagitis; E78.5 Hyperlipidemia, unspecified; Z87.442 Personal history of urinary calculi; G47.33 Obstructive sleep apnea (adult) (pediatric); Z86.718 Personal history of other venous thrombosis and embolism; Z86.711 Personal history of pulmonary embolism; Z95.5 Presence of coronary angioplasty implant and graft; F17.210 Nicotine dependence, cigarettes, uncomplicated; Z79.4 Long term (current) use of insulin; I45.9 Conduction disorder, unspecified
CPT/HCPCS: 36415; 71046; 80053; 83690; 84484; 85025; 85610; 85730; 93005; 96374; 99284; J1885

== ENCOUNTER → 2022-03-20 09:43 | Outpatient (CLI) | payer BC, SELFPAY ==
--- NOTE | ~2022-03-20 | XR_ITS ---
EXAM: XR abdomen w oblique DATE: 03/20/2022 10:36 HISTORY: R10.13 - Epigastric pain . COMPARISON: CTA chest/abdomen 06/11/2021. FINDINGS: Cholecystectomy, pelvic, and GE junction clips. Clear lung bases. Normal bowel gas pattern. No organomegaly. Scattered vascular calcifications. Regional bones and soft tissues normal for age. IMPRESSION: No radiographic evidence of obstruction or ileus. Reviewed, dictated and finalized at location K.
== END ==
PROVIDERS: PCP Family Medicine Adolescent Medicine; Visit Provider Family Medicine Adolescent Medicine
DX: R10.13 Epigastric pain (principal)
CPT/HCPCS: 74021

== ENCOUNTER 2022-06-15 06:54 | Outpatient (CLI) | payer BC, SELFPAY ==
--- NOTE | ~2022-06-15 | CT_ITS ---
EXAMINATION: CT lung screening DATE: 06/15/2022 07:10 INDICATION: History of nicotine dependence. Lung cancer screening. TECHNIQUE: Computed tomography (CT) of the chest was performed without intravenous contrast. The dose -length product was 331.58 mGy-cm. Automated exposure control and iterative reconstruction technique were employed. COMPARISON: CT dated 06/14/2021 and 03/14/2018 FINDINGS: Heart size normal. No significant pleural or pericardial effusion. There are pancreatic ishmael cifications suggesting chronic pancreatitis. There is a new 7.3 cm cyst insinuated between the stomac h and pancreas, likely a pancreatic pseudocyst there is thickening of the distal esophagus, suspiciou s for esophagitis. There is atherosclerosis of the aorta and coronary arteries. Heart size normal. No significant pleural or pericardial effusion. No endobronchial lesions. No pneumothorax. No periphera l consolidation. There is calcified granuloma in the right upper lobe. There is mild emphysema. No pu lmonary nodules are seen which are not definitely calcified. There are mild wedge deformities of the midthoracic spine with accentuated kyphosis. Mild thoracic spondylosis. No focal lytic or blastic les ions. IMPRESSION: 1. Lung-RADS category 1: Negative. Continue annual screening with noncontrast low-dose chest CT in 12 months. 2: Chronic pancreatitis with probable 7.3 cm pseudocyst of the pancreatic body. 3: Mild thickening of the distal esophagus, concerning for esophagitis. Reviewed, dictated and finalized at location B. IMPRESSION: 1. Lung-RADS category 1: Negative. Continue annual screening with noncontrast l ow-dose chest CT in 12 months. 2: Chronic pancreatitis with probable 7.3 cm pseudocyst of the pancreatic body. 3: Mild thickening of the distal esophagus, concerning for esophagitis.
== END 2022-06-15 06:55 | disposition home or self-care (01) ==
PROVIDERS: PCP Family Medicine Adolescent Medicine; Visit Provider Internal Medicine Pulmonary Disease
DX: Z12.2 Encounter for screening for malignant neoplasm of respiratory organs (principal); Z87.891 Personal history of nicotine dependence; K86.1 Other chronic pancreatitis
CPT/HCPCS: 71271

== ENCOUNTER → 2022-07-05 11:47 | Outpatient (CLI) | payer BC, SELFPAY ==
--- NOTE | ~2022-07-05 | US_ITS ---
EXAMINATION: US abdomen complete DATE: 07/05/2022 12:09 INDICATION: Pancreatic pseudocyst TECHNIQUE: Multiple grayscale and Doppler ultrasound images of the abdomen were obtained. COMPARISON: None available FINDINGS: There is a 7.5 x 6.5 x 6.4 cm cystic area in association with the pancreas. The liver is no rmal with normal echogenicity and echotexture. No surface nodularity. Normal hepatopetal flow in the main portal vein. The gallbladder is surgically absent. The normal common bile duct measures 4 mm. Th e visualized portions of the aorta and inferior vena cava are normal. The right kidney measures 12.6 x 4.3 x 4.8 cm. The left kidney measures 11 x 6.8 x 5.3 cm. The kidney s demonstrate normal parenchymal echogenicity. There is no hydronephrosis. The spleen is normal in ap pearance and measures 9.9 cm. IMPRESSION: 1. 7.5 cm cystic lesion associated with the pancreas, likely sequela of prior pancreatitis. Follow-up by MRI without and with contrast is recommended. Reviewed, dictated and finalized at location F. L COORDINATOR IMPRESSION: 1. 7.5 cm cystic lesion associated with the pancreas, likely sequela of prior p ancreatitis. Follow-up by MRI without and with contrast is recommended.
== END ==
PROVIDERS: PCP Family Medicine Adolescent Medicine; Visit Provider Family Medicine Adolescent Medicine
DX: K86.3 Pseudocyst of pancreas (principal)
CPT/HCPCS: 76700

== ENCOUNTER → 2022-08-18 08:22 | Outpatient (CLI) | payer BC, SELFPAY ==
--- NOTE | ~2022-08-18 | US_ITS ---
EXAMINATION: US abdomen complete DATE: 08/18/2022 08:53 INDICATION: Pancreatic pseudocyst TECHNIQUE: Multiple grayscale and Doppler ultrasound images of the abdomen were obtained. COMPARISON: 07/05/2022 FINDINGS: Visualized abdominal aorta is normal measuring 2.7 cm diameter tapering to 2.3 cm in the mid aorta. T he distal aorta is obscured by shadowing bowel gas. The visualized proximal to mid inferior vena cava is normal. Liver has normal echogenicity and contour, with a smooth surface. No liver lesion identif ied. No intrahepatic biliary duct dilation suspected. Portal venous flow was seen in the hepatopetal, normal direction and has normal Doppler waveform. Gallbladder is not visualized and reportedly surgi hu absent. The common bile duct measures 5-6 mm in diameter which is normal. No significant interv al change in a 6.9 x 6.3 x 7.5 cm anechoic fluid collection with well-defined smooth margins along th e anterior margin of the of the pancreas likely representing a pancreatic pseudocysts related to prio r acute pancreatitis is evident on CT dated 03/14/2018. No evident solid soft tissue component. Small portion of the more posterior pancreatic body is normal. The majority of the pancreas is obscured by shadowing bowel gas. There is normal renal contour and echogenicity bilaterally. The right kidney katya sures 12.9 x 4.9 x 5.0 cm and the left 12.0 x 5.1 x 4.3 cm. There are no focal renal lesions identif ied. There is no hydronephrosis. Spleen is normal measuring 10.4 cm in maximal length. IMPRESSION: 1. No significant change in a 7.5 cm simple appearing cystic lesion along the anterior margin of the body the pancreas most likely a pancreatic pseudocyst sequela of prior pancreatitis. Could consider p re and postcontrast MRI or postcontrast CT for further evaluation Reviewed, dictated and finalized at location A. LY PRACTICE PHYSICIAN IMPRESSION: 1. No significant change in a 7.5 cm simple appearing cystic lesion along the a nterior margin of the body the pancreas most likely a pancreatic pseudocyst seq uela of prior pancreatitis. Could consider pre and postcontrast MRI or postcont rast CT for further evaluation
== END ==
PROVIDERS: PCP Family Medicine Adolescent Medicine; Visit Provider Family Medicine Adolescent Medicine
DX: K86.1 Other chronic pancreatitis (principal); K86.3 Pseudocyst of pancreas
CPT/HCPCS: 76700

== ENCOUNTER 2022-11-27 08:11 | Outpatient (CLI) | payer BC, SELFPAY ==
[2022-11-27 09:27] LABS: Blood Urea Nitrogen 28 mg/dL (9-20); Calcium 9.2 mg/dL (8.4-10.2); Carbon Dioxide > 40 mmol/L (22-30); Chloride 92 mmol/L (98-107); Estimated Glomerular Filt Rate > 60; Glucose 312 mg/dL (65-110); Potassium 3.7 mmol/L (3.4-5.0); Sodium 135 mmol/L (137-145)
== END 2022-11-27 08:12 | disposition home or self-care (01) ==
PROVIDERS: Anesthesiology; PCP Family Medicine Adolescent Medicine; Visit Provider Dentist
DX: E11.42 Type 2 diabetes mellitus with diabetic polyneuropathy (principal); Z01.818 Encounter for other preprocedural examination
CPT/HCPCS: 36415; 80048

== ENCOUNTER 2022-11-29 02:46 | Day surgery (SDC) | payer BC, SELFPAY ==
[2022-11-22 09:16] VITALS: BMI 35.2
--- NOTE | 2022-11-22 09:23 | PC.NURSE ---
Report to the Outpatient Waiting Room, entrance under the green pavilion located off [facility], at time 6:00 on date 11/29/22. Planned Procedure Time: 7:30. Time changes happen often and if your time is changed the preop area will call you the afternoon before. - You and your visitor will be asked to self-screen and do not enter if you have any COVID symptoms. - Only one visitor is requested with a max of two and NO children visitors are allowed at this time. - The patient visitor may be requested to leave or wait in car when not with patient due to distancing restrictions. - A mask is optional within the hospital at this time. Patients may have clear liquids (water, carbonated beverages, clear teas, apple juice) until 3 hours prior to surgery (4:30) with a maximum of 20 ounces. - No food from midnight until time of surgery Take the following medications with a SIP of water the morning of surgery: METOPROLOL, INHALERS DO NOT STOP ANY OF YOUR OTHER PRESCRIPTION MEDICATIONS PRIOR TO SURGERY EXCEPT THE FOLLOWING Medications to discontinue per physician: ASPIRIN Date to take last dose: PER DR. TREADWELL Please no make-up, nail icelandic, hairspray, perfume, deodorant, or body powder the day of surgery. No jewelry (including any body piercings) or valuables the day of surgery, leave them at home. Please take a shower or bath the night before, or the morning of, surgery with an antibacterial soap. Wear comfortable, loose fitting clothing. - Jewelry must be removed prior to entering the operating room. Rings and piercings that are not removed may be cut off. - The hospital will not accept responsibility for valuables. - Please leave all valuables, including medications, at home the day of surgery. If you are going home after surgery, a licensed regional owner operator truck driver must drive you home. - NO public transportation without another adult if you receive anesthesia. - We recommend that an adult stay with you for 24 hours following discharge. - We also recommend that you do not drive, make important decision, drink alcoholic beverages, or take any drugs that were not prescribed by your health care provider for at least 24 hours after your discharge time. Follow any additional instructions given to you from your surgeon. If you or anyone in your household have experienced Covid symptoms in the past week, please notify your surgeon or the nurse liaison at the phone number below for possible testing. Telephone instructions given to PT - SHAHNAZ HERRERA and asked if any additional questions and then verbalized understanding. Patient advised to call surgeon office or pre surgery nurse liaison [phone] if any additional questions.
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
[2022-11-29] VITALS (14 sets, daily range): BP systolic 108–190; BP diastolic 69–89; PULSE 69–83; RESP 10–20; TEMP 36.8–37.1; O2SAT 91–99
[2022-11-29] MEDS: LACTATED RINGERS 1,000 ML 30 ML IV CONT (06:30)
[2022-11-29 07:01] LABS: Glucose Point of Care 354 mg/dl (65-105)
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
--- NOTE | 2022-11-29 07:20 | WPDHPUPDATE1 ---
History and Physical Update Update Date/Time: 11/29/22 07:20 History and Physical has been reviewed, including an updated exam of the patient. There are NO changes in the patient's condition. Risks, benefits, and alternatives have been discussed and questions answered. Patient agrees to proceed with procedure.
[2022-11-29] MEDS: ceFAZolin 3 GM/D5W 100 ML 100 ML IVPB (07:36)
[2022-11-29] MEDS: INSULIN HUMAN REGULAR (*BKC) 100 UNITS/ML 6 UNITS IV PUSH (07:42)
[2022-11-29] MEDS: LIDOCAINE 2%-EPI (FOR DENTAL BLOCK) 1.7 ML CARTRIDGE 10.2 ML INFILTRATE (08:46)
--- NOTE | 2022-11-29 09:03 | P.OP_ITS ---
Procedure Note - Detailed Date of Procedure 11/29/22 Pre-op Diagnosis dental caries, lesion in mandible #32 impacted Post-op Diagnosis Same Procedure Performed sr 3, 4, 6-14, 19, 20, 30, 31, 32 and biopsy#32 Surgeon Colby Wasserman, DMD Anesthesia General Description of Procedure Patient was encountered in the operating room under the care of the Anesthesia Service who induced general anesthetic. Patient was draped in usual manner for intraoral surgical procedure. Oral cavity suctioned free of debris and throat pack placed. Local anesthetic administered. Fifteen blade was used to make a circular incision in the maxilla and full-thickness flaps elevated the buckle. Buccal bone was removed using the drill and the teeth removed using elevator forceps technique without complication. Seconds curetted free of debris and irrigated copious amount sterile saline. Valvuloplasty was completed using a rongeur. Wound was again irrigated and the extraction sites were packed with Gelfoam and the wound closed using 4-0 chromic gut suture in continuous fashion. Attention was turned to the left mandible were a distal releasing incision was made in the area of 18. With extension to the area of 20. Full-thickness flaps elevated the buckle. A buccal trough was created around both teeth and tooth 18. Was sectioned and the teeth removed using elevator and forceps technique without complication. Secured free of debris under the irrigated with copious amounts of sterile saline. Wound packed with Gelfoam and closed using 4-0 chromic gut suture in continuous fashion. Attention was turned to the right mandible were a distal releasing incision was made with anterior extension to their area of 20. Full-thickness flaps over the buckle. Bone was removed buccal E on teeth numbers [id number]. Teeth numbers 30 and 32 were sectioned. Teeth numbers 3031 and 32 were then removed using alligator forceps technique without complication. The soft tissue associated with the crown of tooth number 32 was sent for specimen. Wound was thoroughly irrigated packed with Gelfoam and then closed using 4-0 chromic gut suture in continuous fashion. Oral cavity suctioned free of debris a throat pack was removed. Gauze packs placed. Care the patient was turned to the issues Service who extubated the patient tra nsferred to recovery in stable condition. estimated blood loss 25cc. Anesthesia was general anesthesia and 6cc of 2% lidocaine with 100,000 epinephrine. No complications.
[2022-11-29 09:14] LABS: Glucose Point of Care 302 mg/dl (65-105)
[2022-11-29] MEDS: INSULIN HUMAN REGULAR (*BKC) 100 UNITS/ML IV PUSH (09:14)
[2022-11-29] MEDS: fentaNYL CITRATE INJ (*CRX) 100 MCG/2 ML VIAL 25 MCG IV PUSH ×4 (10:07→10:27)
[2022-11-29 10:46] LABS: Glucose Point of Care 282 mg/dl (65-105)
[2022-11-29] MEDS: oxyCODONE HCL (*CRX) 5 MG TAB IR PO (10:58)
--- NOTE | 2022-11-29 11:29 | SUR.PHASEII ---
1125 - pt's to bring pt's portable oxygen tank for transport home
== END 2022-11-29 12:11 | disposition home or self-care (01) ==
PROVIDERS: PCP Family Medicine Adolescent Medicine; Visit Provider Dentist
PROC: (CPT 41899; principal; 2022-11-29 07:30)
PROC: (CPT 20240; 2022-11-29 07:30)
DX: K02.9 Dental caries, unspecified (principal); I25.10 Atherosclerotic heart disease of native coronary artery without angina pectoris; E11.9 Type 2 diabetes mellitus without complications; I10 Essential (primary) hypertension; E78.5 Hyperlipidemia, unspecified; K21.9 Gastro-esophageal reflux disease without esophagitis; G47.33 Obstructive sleep apnea (adult) (pediatric); Z86.718 Personal history of other venous thrombosis and embolism; Z86.711 Personal history of pulmonary embolism; Z95.5 Presence of coronary angioplasty implant and graft; F17.210 Nicotine dependence, cigarettes, uncomplicated; E66.9 Obesity, unspecified; Z68.36 Body mass index [BMI] 36.0-36.9, adult; Z79.51 Long term (current) use of inhaled steroids; Z79.4 Long term (current) use of insulin; Z79.84 Long term (current) use of oral hypoglycemic drugs; Z79.82 Long term (current) use of aspirin
CPT/HCPCS: 41899; D7240 ×16; 82948; A9270; J0330; J0690; J1170; J1815; J2250; J2405; J2704; J3010; J7120

== ENCOUNTER 2023-01-08 08:05 | Outpatient (CLI) | payer BC, SELFPAY ==
--- NOTE | ~2023-01-08 | US_ITS ---
US art doppler w press LE BI INDICATION: Claudication TECHNIQUE: Segmental pressures and plethysmographic and Doppler waveforms of the brachial and lower e xtremity arteries were obtained. COMPARISON: None. FINDINGS: Right and left brachial artery pressures of 148 mm Hg and 161 mm Hg, respectively, are concordant (no rmal difference <= 30 mmHg). There is biphasic flow bilaterally. The right ankle-brachial index (SKY) is 1.16 (normal >= 0.9-1.0). The right great toe-brachial index (TBI) is 0.76 (normal >= 0.60). The left SKY is 1.08. The left TBI is 0.76. IMPRESSION: 1. Normal bilateral ankle and toe brachial indices. Reviewed, dictated and finalized at location B.
== END 2023-01-08 08:06 | disposition home or self-care (01) ==
PROVIDERS: PCP Family Medicine Adolescent Medicine; Visit Provider Family Medicine Adolescent Medicine
DX: I73.9 Peripheral vascular disease, unspecified (principal)
CPT/HCPCS: 93923

== ENCOUNTER 2023-01-19 07:13 | Outpatient (CLI) | payer BC, SELFPAY ==
--- NOTE | ~2023-01-19 | US_ITS ---
Abdominal Sonogram: Real-time sonographic imaging of the abdomen was performed. Clinical History: Pancreatic cyst COMPARISON: 08/18/2022 Findings: The liver appears normal with no evidence of mass lesion or bile duct dilatation. Main por adelaide vein demonstrates normal direction of flow. The spleen is normal in size without evidence of foca l lesion. The gallbladder is absent, compatible prior cholecystectomy. The common bile duct measures 5 mm. There is a 7.5 x 5.5 x 6.3 cm simple appearing cystic mass at the pancreatic head region. Aort a is unremarkable. The right kidney measures 12.3 cm in length and the left kidney measures 11.3 cm. There is no hydronephrosis or renal calculus. Impression: Stable 7.5 cm simple appearing cystic mass at the region of the pancreatic head. Reviewed, dictated and finalized at location . Impression: Stable 7.5 cm simple appearing cystic mass at the region of the pancreatic head .
== END 2023-01-19 07:14 | disposition home or self-care (01) ==
PROVIDERS: PCP Family Medicine Adolescent Medicine; Visit Provider Family Medicine Adolescent Medicine
DX: K86.3 Pseudocyst of pancreas (principal); K86.1 Other chronic pancreatitis
CPT/HCPCS: 76700

== ENCOUNTER → 2023-04-10 08:26 | Outpatient (CLI) | payer MEDICARE, BC, SELFPAY ==
--- NOTE | ~2023-04-10 | MR_ITS ---
EXAMINATION: MR lumbar spine wo con DATE: 04/10/2023 08:56 INDICATION: Low back pain radiating down both legs. TECHNIQUE: Magnetic resonance imaging (MRI) of the lumbar spine was performed without intravenous con trast. Sequences included sagittal T2-weighted FSE, sagittal T2-weighted FS FSE, sagittal T1-weighted FSE, and axial T2-weighted FSE. COMPARISON: None FINDINGS: Bone alignment is normal. Vertebral body heights and intervertebral disc heights are normal . The distal spinal cord signal intensity is normal. The conus medullaris is at L2. The following dis c levels are specifically discussed: L1-L2: There is a right central extrusion. There is mild bilateral facet joint osteoarthritis. There is mild right neural foraminal stenosis. There is mild central canal stenosis. L2-L3: The disc does not extend beyond the endplate margin. There is mild bilateral facet joint osteo arthritis. There is no neural foraminal stenosis. There is no central canal stenosis. L3-L4: The disc is bulging. There is mild bilateral facet joint osteoarthritis. There is mild bilater al neural foraminal stenosis. There is no central canal stenosis. L4-L5: The disc is bulging and has an annular fissure. There is severe bilateral facet joint osteoart hritis. There is mild bilateral neural foraminal stenosis. There is mild central canal stenosis. L5-S1: The disc does not extend beyond the endplate margin. There is severe bilateral facet joint ost eoarthritis. There is mild bilateral neural foraminal stenosis. There is no central canal stenosis. IMPRESSION: 1. Mild lumbar spondylosis. Reviewed, dictated and finalized at location A. IMPRESSION: 1. Mild lumbar spondylosis.
== END ==
PROVIDERS: PCP Family Medicine Adolescent Medicine; Visit Provider Family Medicine Adolescent Medicine
DX: M79.661 Pain in right lower leg (principal); M79.662 Pain in left lower leg; M47.896 Other spondylosis, lumbar region
CPT/HCPCS: 72148

== ENCOUNTER → 2023-04-17 14:38 | Outpatient (CLI) | payer MEDICARE, SELFPAY ==
--- NOTE | ~2023-04-17 | XR_ITS ---
XR hip LT 2V w AP pelvis DATE: 04/17/2023 14:59 INDICATION: Left hip and sacral pain TECHNIQUE: AP pelvis. AP and lateral views of left hip COMPARISON: None FINDINGS: There is osteopenia. Normal alignment at the pubic symphysis and sacroiliac joints. No pelvic fracture or bone destruction is detected. Hip joint spaces appear symmetric and relatively well preserved. No fracture, dislocation, avascular necrosis or bone destruction of the left hip. IMPRESSION: Osteopenia Reviewed, dictated and finalized at location L. IMPRESSION: Osteopenia
== END ==
PROVIDERS: PCP Family Medicine Adolescent Medicine; Visit Provider Family Medicine Adolescent Medicine
DX: M25.552 Pain in left hip (principal); M53.3 Sacrococcygeal disorders, not elsewhere classified; M85.852 Other specified disorders of bone density and structure, left thigh
CPT/HCPCS: 73502

== ENCOUNTER → 2023-07-19 08:41 | Outpatient (CLI) | payer MEDICARE, SELFPAY ==
--- NOTE | ~2023-07-19 | XR_ITS ---
Lumbosacral Spine: AP and lateral views, with neutral, flexion, extension positioning Clinical History: Pain Findings: The normal lordotic curve is maintained. Questionable minimal compression deformity superio r plate of L2. The intervertebral disc spaces are preserved. There is moderate to advanced facet arth ropathy at L4-L5 and L5-S1. The sacroiliac joints are normally outlined. Impression: Questionable minimal compression deformity at the superior endplate of L2. Facet arthropathy at the lower lumbar spine, as detailed above. No instability on flexion or extension. Reviewed, dictated and finalized at location . GE PAINTER HELPER Impression: Questionable minimal compression deformity at the superior endplate of L2. Facet arthropathy at the lower lumbar spine, as detailed above. No instability on flexion or extension.
--- NOTE | ~2023-07-19 | XR_ITS ---
AP and lateral views of the left hip Clinical history: Pain Findings: No acute fracture or dislocation is seen. Osseous alignment is anatomic. Left hip joint is preserved. Soft tissues are unremarkable. Impression: No significant abnormality is seen. Reviewed, dictated and finalized at location M. DEVELOPMENT TEAM LEAD Impression: No significant abnormality is seen.
== END ==
PROVIDERS: PCP Family Medicine Adolescent Medicine; Visit Provider Physician Assistant
DX: M54.50 Low back pain, unspecified (principal); M25.551 Pain in right hip
CPT/HCPCS: 72110; 73502

== ENCOUNTER 2023-08-22 08:19 | Outpatient (CLI) | payer MEDICARE, BC, SELFPAY ==
--- NOTE | 2023-08-22 10:15 | NEURO_ITS ---
Impression: # Known insulin dependent diabetic complains of lower back pain and numbness of lower extremities. # Motor/sensory axonal neuropathy with involvement of proximal nerves as well. # Needle/EMG exam abnormal with decreased motor unit potentials but no active fibs. # Clinical correlation recommended. Nerve Conduction Studies Anti Sensory Summary Table Stim Site NR Peak (ms) P-T Amp (?V) Site1 Site2 Delta-P (ms) Dist (cm) Didier (m/s) Left Saphenous Anti Sensory (Ant Med Mall) NO RESPONSE 14cm NR 14cm Ant Med Mall 0.0 Right Saphenous Anti Sensory (Ant Med Mall) NO RESPONSE 14cm NR 14cm Ant Med Mall 0.0 Left Sup Fibular Anti Sensory (Ant Lat Mall) NO RESPONSE 14 cm NR 14 cm Ant Lat Mall 16.0 Right Sup Fibular Anti Sensory (Ant Lat Mall) NO RESPONSE 14 cm NR 14 cm Ant Lat Mall 16.0 Left Sural Anti Sensory (Lat Mall) NO RESPONSE Calf NR Calf Lat Mall 16.0 Right Sural Anti Sensory (Lat Mall) NO RESPONSE Calf NR Calf Lat Mall 16.0 Motor Summary Table Stim Site NR Onset (ms) O-P Amp (mV) Site1 Site2 Delta-0 (ms) Dist (cm) Didier (m/s) Left Peroneal Motor (Vastus Med) Ankle 5.5 0.8 Popit Ankle 12.3 44.0 36 Popit 17.8 0.5 Right Peroneal Motor (Vastus Med) Ankle 5.6 1.1 Popit Ankle 11.5 43.0 37 Popit 17.1 1.1 Left Tibial Motor (Abd Del Rosario Brev) Ankle 5.9 1.1 Knee Ankle 11.6 44.0 38 Knee 17.5 1.1 Right Tibial Motor (Abd Del Rosario Brev) Ankle 5.9 1.4 Knee Ankle 12.5 47.0 38 Knee 18.4 1.6 F Wave Studies NR F-Lat (ms) L-R F-Lat (ms) Left Peroneal (Mrkrs) (EDB) 64.73 Right Peroneal (Mrkrs) (EDB) DISPERSED RESPONSE NR Left Tibial (Mrkrs) (Abd Hallucis) 67.25 Right Tibial (Mrkrs) (Abd Hallucis) DISPERSED RESPONSE NR EMG Side Muscle Nerve Root Ins Act Fibs Amp Dur Recrt Comment Right AntTibialis Dp Br Fibular L4-5 Nml Nml Decr >12ms Reduced Right Gastroc Tibial S1-2 Nml Nml Decr >12ms Reduced Right Fibularis Long Sup Br Fibular L5-S1 Nml Nml Decr >12ms Reduced Right Flex Dig Long Tibial L5-S2 Nml Nml Decr >12ms Reduced Right Ext Dig Brev Dp Br Fibular L5, S1 Nml Nml Decr >12ms Reduced Left AntTibialis Dp Br Fibular L4-5 Nml Nml Decr >12ms Reduced Left Gastroc Tibial S1-2 Nml Nml Decr >12ms Reduced Left Fibularis Long Sup Br Fibular L5-S1 Nml Nml Decr >12ms Reduced Left Flex Dig Long Tibial L5-S2 Nml Nml Decr >12ms Reduced Left Ext Dig Brev Dp Br Fibular L5, S1 Nml Nml Decr >12ms Reduced MTDD
== END 2023-08-22 08:20 | disposition home or self-care (01) ==
PROVIDERS: PCP Family Medicine Adolescent Medicine; Visit Provider Physician Assistant
DX: G62.9 Polyneuropathy, unspecified (principal); R94.131 Abnormal electromyogram [EMG]; Z79.4 Long term (current) use of insulin
CPT/HCPCS: 95886; 95911

== ENCOUNTER → 2023-09-11 08:59 | Outpatient (CLI) | payer MEDICARE, SELFPAY ==
--- NOTE | ~2023-09-11 | US_ITS ---
Abdominal Sonogram: Real-time sonographic imaging of the abdomen was performed. Clinical History: Pancreatic cyst COMPARISON: 01/19/2023 Findings: The liver appears normal with no evidence of mass lesion or bile duct dilatation. Main por adelaide vein demonstrates normal direction of flow. The spleen is normal in size without evidence of foca l lesion. The gallbladder is absent, compatible with prior cholecystectomy. The common bile duct katya sures 4 mm. There is a 6.9 x 6.4 x 6.3 cm cystic mass in the pancreatic tail region. Visualized aorta and IVC are unremarkable. The right kidney measures 12.2 cm in length and the left kidney measures 1 0.4 cm. There is no hydronephrosis or renal calculus. Impression: Cystic mass near the pancreatic tail is similar to prior exam given differences in imaging technique, currently measuring 6.9 cm in diameter. Reviewed, dictated and finalized at [facility]. SITTING Impression: Cystic mass near the pancreatic tail is similar to prior exam given differences in imaging technique, currently measuring 6.9 cm in diameter.
== END ==
PROVIDERS: PCP Family Medicine Adolescent Medicine; Visit Provider Family Medicine Adolescent Medicine
DX: K86.2 Cyst of pancreas (principal)
CPT/HCPCS: 76700

== ENCOUNTER 2024-04-22 08:14 | Outpatient (CLI) | payer MEDICARE, SELFPAY ==
--- NOTE | ~2024-04-22 | XR_ITS ---
XR knee LT 3V 04/22/2024 08:28 Indication: Left knee pain Procedure: 3 views left knee Comparison: No prior studies for comparison. Findings: There is patellofemoral compartment osteoarthritis. No fracture, subluxation or dislocation . No significant joint effusion. Impression: 1: Mild patellofemoral compartment osteoarthritis. Reviewed, dictated and finalized at location B. Impression: 1: Mild patellofemoral compartment osteoarthritis.
== END 2024-04-22 08:15 | disposition home or self-care (01) ==
LOC: MICIMG 08:15
PROVIDERS: PCP Family Medicine Adolescent Medicine; Visit Provider Family Medicine Adolescent Medicine
DX: M17.12 Unilateral primary osteoarthritis, left knee (principal)
CPT/HCPCS: 73562

== ENCOUNTER 2024-05-09 08:37 | Outpatient (CLI) | payer MEDICARE, SELFPAY ==
--- NOTE | ~2024-05-09 | MR_ITS ---
EXAMINATION: MR knee LT wo/w con DATE: 05/09/2024 10:09 INDICATION: Left knee pain TECHNIQUE: Magnetic resonance imaging (MRI) of the affected knee was performed without intravenous co ntrast. Sequences included coronal PD-weighted FSE, coronal PD-weighted FS FSE, sagittal T2-weighted FSE, sagittal PD-weighted FS FSE, axial PD weighted fat saturated FSE, axial T1-weighted FSE and pos tcontrast axial, sagittal and coronal T1-weighted FS FSE . COMPARISON: None. FINDINGS: Medial compartment: Medial meniscus is normal. Articular cartilage is normal. Lateral compartment: Lateral meniscus is normal. Articular cartilage is normal. Patellofemoral compartment: Deep chondral ulceration at the lateral patellar facet with irregular cortical contour and subarticul ar edema-like signal range. Moderate size marginal osteophytes at the proximal pole of the patella. T rochlear cartilage is normal. Ligaments and tendons: Anterior and posterior cruciate ligaments are normal. The medial collateral ligament and fibular corbin ateral ligament complex are normal. The extensor mechanism is normal. The visualized medial and later al hamstring tendons as well as the iliotibial band are normal. Fluid: Physiologic amount of fluid in the joint space with normal thin peripheral enhancing synovium. Couple small heterotopic ossicles which appear peripheral to the enhancing synovium along the superolateral margin of the patella most likely enthesopathic ossicles. No other loose osteochondral bodies identi fied. Osseous/other: Aside from at the patella there is normal marrow signal. No fracture or pathologic marrow replacing p rocess. IMPRESSION: 1. 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 Reviewed, dictated and finalized at location B. IMPRESSION: 1. 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
== END 2024-05-09 08:38 | disposition home or self-care (01) ==
LOC: MICIMG 08:37
PROVIDERS: PCP Family Medicine Adolescent Medicine; Visit Provider Family Medicine Adolescent Medicine
DX: M25.562 Pain in left knee (principal)
CPT/HCPCS: 73723; A9577

== ENCOUNTER 2024-07-09 08:04 | Outpatient (CLI) | payer MEDICARE, SELFPAY ==
--- NOTE | ~2024-07-09 | US_ITS ---
COMPLETE ABDOMINAL ULTRASOUND Ordering provider: Jeovanny Clancy MD History: . K86.1 - Other chronic pancreatitis . Comparison: August 18, 2022 FINDINGS: LIVER: Normal size and echotexture. No focal hepatic lesions or perihepatic fluid collections are cristino ntified. Portal vein flow is normal. GALLBLADDER: Surgically removed. BILIARY DUCTS: No evidence for intra or extrahepatic biliary dilation. Common bile duct measures 4 mm in diameter which is within normal limits. PANCREAS: Lateral cyst is seen measuring 7.1 x 6.7 x 6.2 cm slightly larger or unchanged from previou s examination.. SPLEEN: Normal size, echotexture and contour and measures 11.4 cm in length. KIDNEYS: Right measures 12.9x 4.5x 6 cm in length and the left 12x 5x 6.1 cm in length. There is no e vidence for hydronephrosis, solid renal mass, renal calculi or perinephric fluid collections. No zo l cysts. UPPER ABDOMINAL AORTA: Visualized portion is Normal in caliber. IVC: Patent. FREE FLUID: None. IMPRESSION: Large cyst in the area of the pancreas unchanged from previous examination. CT evaluation advised. St atus post cholecystectomy. Otherwise, Unremarkable complete ultrasound of the abdomen. Reviewed, dictated and finalized at location A. OR NETWORK ENGINEER IMPRESSION: Large cyst in the area of the pancreas unchanged from previous examination. CT evaluation advised. Status post cholecystectomy. Otherwise, Unremarkable comple te ultrasound of the abdomen.
== END 2024-07-09 08:05 | disposition home or self-care (01) ==
LOC: MICIMG 08:06
PROVIDERS: PCP Family Medicine Adolescent Medicine; Visit Provider Family Medicine Adolescent Medicine
DX: K86.1 Other chronic pancreatitis (principal); K86.3 Pseudocyst of pancreas; R10.13 Epigastric pain
CPT/HCPCS: 76700

== ENCOUNTER 2024-10-09 06:56 | Outpatient (CLI) | payer MEDICARE, SELFPAY ==
--- NOTE | ~2024-10-09 | MR_ITS ---
MRI of the lumbar spine Clinical History: Back pain Technique: Axial T2-weighted images, and sagittal T1-weighted, T2-weighted, and T2 fat-sat images wer e acquired. COMPARISON: 04/10/2023 Findings: There is no fracture or subluxation of the lumbar spine. Osseous alignment is unchanged. No spinal nursing abnormalities seen. At L1-L2, there is mild disc desiccation with minimal disc bulge. There is mild facet hypertrophy. No spinal canal stenosis or neural foraminal narrowing. At L2-L3 and L3-L4, there is no disc bulge or herniation. There is mild to moderate facet arthropathy results. No spinal canal stenosis or neural foraminal narrowing at these levels. At L4-L5, there is mild disc desiccation with minimal disc bulge. There is advanced facet arthropathy . No gonsalo central canal stenosis. There is mild bilateral neural foraminal narrowing. At L5-S1, there is minimal disc bulge with advanced facet arthropathy. No central canal stenosis or n eural foraminal narrowing. Paravertebral soft tissues are unremarkable. Impression: Mild degenerative spondylosis overall, as detailed above, worst at L4-L5. Reviewed, dictated and finalized at location . ROPOLOGY INSTRUCTOR Impression: Mild degenerative spondylosis overall, as detailed above, worst at L4-L5.
== END 2024-10-09 06:57 | disposition home or self-care (01) ==
LOC: MICIMG 06:57
PROVIDERS: PCP Family Medicine Adolescent Medicine; Visit Provider Nurse Practitioner Family
DX: M47.896 Other spondylosis, lumbar region (principal)
CPT/HCPCS: 72148

== ENCOUNTER 2024-11-10 14:48 | Outpatient (CLI) | payer MEDICARE, SELFPAY ==
--- NOTE | ~2024-11-10 | US_ITS ---
LEFT LOWER EXTREMITY VENOUS ULTRASOUND Ordering provider: Isha Baird, PLAY LEADER History: . Pain and swelling in left knee . Comparison: None. FINDINGS: --COMMON FEMORAL: Patent and free of thrombus. Normal compressibility, phasic flow and augmentation. --PROXIMAL SUPERFICIAL FEMORAL: Patent and free of thrombus. Normal compressibility, phasic flow and augmentation. --DISTAL SUPERFICIAL FEMORAL: Patent and free of thrombus. Normal compressibility, phasic flow and au gmentation. --POPLITEAL: Patent and free of thrombus. Normal compressibility, phasic flow and augmentation. --POSTERIOR TIBIAL: Patent and free of thrombus. Normal compressibility, phasic flow and augmentation . IMPRESSION: Negative left lower extremity venous US. No deep vein thrombosis. Reviewed, dictated and finalized at location A.
== END 2024-11-10 14:49 | disposition home or self-care (01) ==
PROVIDERS: PCP Family Medicine Adolescent Medicine; Visit Provider Nurse Practitioner Family
DX: M25.562 Pain in left knee (principal)
CPT/HCPCS: 93971

== ENCOUNTER 2024-12-31 13:13 | Outpatient (CLI) | payer MEDICARE, SELFPAY ==
--- NOTE | ~2024-12-31 | XR_ITS ---
XR knee LT 3V Ordering provider: Jeovanny Clancy MD History: . M94.262 - Chondromalacia, left knee . Comparison: None. FINDINGS: BONES: No acute fracture or dislocation. JOINT SPACES: Normal. Marginal osteophytes seen in the patella. SOFT TISSUES: Normal. IMPRESSION: No acute osseous abnormality left knee. Moderate Osteoarthritic changes of the patellofemoral joint. Reviewed, dictated and finalized at location A.
== END 2024-12-31 13:14 | disposition home or self-care (01) ==
PROVIDERS: PCP Orthopaedic Surgery; Visit Provider Family Medicine Adolescent Medicine
DX: M94.262 Chondromalacia, left knee (principal); M17.12 Unilateral primary osteoarthritis, left knee
CPT/HCPCS: 73562

== ENCOUNTER 2025-04-08 10:24 | Outpatient (NON) | payer MEDICARE, SELFPAY ==
--- OUTSIDE RECORDS SUMMARY | 2025-04-08 10:53 | XMS_ITS | Clinical Summary ---
Author Organization [facility] Address [address] [place] [address] Care Team Providers Care Nurse College Name Role Phone Jeovanny Clancy MD Primary Care Provider + Source Comments [facility],non-owned Affiliates and Associated Physician Practices is amultiple site organization consisting of ambulatory clinics and hospital sitesin [place], [place], [place] and [place]. This disclosure is being madepursuant to the Care Everywhere program and may not contain all information available regarding this patient. Last updated 18.[facility] Allergies No known active allergies Medications * Be aware that medications may not be up to date on this document. Alwaysverify current medications with the patient. insulin glargine (LANTUS) pen Inject 25 Units subcutaneously once daily 018 Active Additional Information Patient taking differently: 42 UnitsSubcutaneousEVERY MORNING, Informant: Patient, Reported on 08/26/2020 multivitamin daily tabletIndicatio ns:Chronic pancreatitis, unspecified pancreatitis type (HCC),Necrotizi ng pancreatitis (HCC) Take 1 tablet by mouth daily with food 018 Active rosuvastatin (CRESTOR) 20 MG tablet Take 20 mg by mouth every evening Active hydrALAZINE (APRESOLINE) 50 MG tablet Take 50 mg by mouth 2 times daily Active metoprolol succinate XL 24hr (TOPROL XL) 100 MG tablet Take 100 mg by mouth once daily Active metoclopramide (REGLAN) 10 MG tablet TK 1 T PO BEFORE MEALS 0 03/13 019 Active ASPIRIN 81 PO Active furosemide (LASIX) 80 MG tablet TK 1 T PO QD 020 Active potassium chloride ER (MICRO-K) 10 MEQ capsule TK 1 C PO QD Active triamcinolone acetonide (KENALOG) 0.1 % cream ALIZE TO RASH BID Active polyethylene glycol (GOLYTELY) 236 g solution Drink 1/2 of prep at 5pm the night before test. Finish the prep at 4am the day of test. 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 Acute respiratory failure with hypoxia 8 SANIA (acute kidney injury) 03/23/2018 ARDS (adult respiratory distress syndrome) 03/23 Acute deep vein thrombosis (DVT) of both lower e xtremities 03/23/2018 Acute necrotizing pancreatitis 03/14/2018 ATN (acute tubular necrosis) Hyperphosphatemia Azotemia Social History Tobacco Use Types Packs/Day Years Used Date Smoking Tobacco: Every Day Cigarettes 2 30 Started: 03/06/1988; Last attempted to quit: 03/06/2018 Smokeless Tobacco: Never Tobacco Cessation:Ready to Q uit: No; Counseling Given: Yes Alcohol Use Standard Drinks/Week Comments Not Currently 0 (1 standard drink = 0.6 oz pur e alcohol) 6 beers per year or less Sex and Gender Information Value Date Recorded Sex Assigned at Not on file Legal Sex Male 11:04 AM CDT Gender Identity Not on file Sexual Orientation Not on file Last Filed Vital Signs Vital Sign Reading Time Taken Comments Blood Pressure 151/90 03/04/2021 12:41 PM CDT Pulse 77 03/04/2021 12:41 PM CDT Temperature 36.7 C (98 F) 03/04/2021 9:39 AM CDT Respiratory Rate 9 03/04/2021 12:4 1 PM CDT Oxygen Saturation 93% 03/04/2021 12: 41 PM CDT Inhaled Oxygen Concentration 50% 04/24/2018 6 :00 PM CDT Weight 109.2 kg (240 lb 12.8 oz) 03/04/2021 9:30 AM CDT Height 182.9 cm (6') 03/04/2021 9:30 AM CDT Body Mass Index 32.66 03/04/2021 9:30 AM CDT Plan of Treatment Health Maintenance Due Date Last Done Comments COLOGUARD (AGES 45-75) - COLON CA SCREENING 1960 CT COLONOGRAPHY - COLON CA SCREENING 1960 FIT - COLON CA SCREENING 1960 FLEX SIG - COLON CA SCREENING 1960 DTAP/TDAP/TD VACCINES (1 - Tdap) 1977 LUNG CANCER SCREENING 2008 PNEUMOCOCCAL VACCINE 50+ (1 of 1 - PCV) 2008 ZOSTER VACCINE (1 of 2) 2008 AAA SCREENING 11/17/2023 SCREENING FOR DIABETES 03/04/2024 , 09/02/2019, 08/14/2019, Additional history exists COVID-19 VACCINE ( - season) 2024 DEPRESSION SCREENING 08/20/2024 INFLUENZA VACCINE (#1) 2025 COLON MONITORING 03/04/2031 03/04/2021, 03/04/2021 COLONOSCOPY - COLON CA SCREENING 03/04/2031 03/04/2021, 03/04/2021 Colorectal Cancer Screening 03/04/2031 Respiratory Syncytial Virus (RSV) Vaccine Pt: or over 60 yrs (1 - 1-dose 75+ series) 2033 HEPATITIS C SCREENING Completed 01/21/2021 HEPATITIS B VACCINE Aged Out No longe r eligible based on patient's age to complete this topic HIB VACCINE Aged Out No longer eligi ble based on patient's age to complete this topic HPV VACCINE Aged Out No longer eligi ble based on patient's age to complete this topic MENINGOCOCCAL (Group B) VACCINE SHARED DECISION-MAKING Aged Out No longer eligible based on patient's age to complete this topic MENINGOCOCCAL GROUPS A/C/Y/W VACCINE Aged Out No longer eligible based on patient's age to complete this topic Goals Goal Patient Goal Type Associated Problems Recent Progress Patient-Stated? Author Medication Management General On track( 021 12:46 PM CDT) Keri Abdullahi, RN Note: Expected end date: ongoing Interventions: Take all medications as prescribed Let your doctor know right away about any changes in your medications Make sure to request a refill of your medication at least one week prior to your last dose Medical Devices Explanted Type Area Telegraph Office Telephone Clerk Device Identifier Shelf Expiration Date Model / Serial / Lot Stent Pncr 15mm 24mm 10mm 146mm 138mm Implanted:Qty: 1 on 08/14/2019 by Micah López MD at [facility] Explanted:Qty: 1 on 09/02/2019 by Micah López MD at [facility] [employer] 01/07/2021 [id number] / / [id number] Stent Biliary 10fr 5fr 4cm 210cm .035in Implanted:Qty: 1 on 08/14/2019 by Micah López MD at [facility] Explanted:Qty: 1 on 09/02/2019 by Micah López MD at [facility] [employer] 01/08/2022 [id number] / / [id number] Procedures Procedure Name Priority Date/Time Associated Diagnosis Comments ENDOSCOPY, COLON, SCREENING Routine 03/04/2021 11:47 AM CDT GLUCOSE - POINT OF CARE Routine 03/04/2021 9:48 AM CDT HEPATITIS C AB W/RFLX TO HCV RNA QN PCR Routine 01/21/2021 9:13 AM CDT Encounter for hepatitis C screening test for low risk patient from Last 3 Months or Most Recently Relevant to Health Maintenance Results * ENDOSCOPY, COLON, SCREENING (03/04/2021 11:47 AM CDT) Report Endoscopy POC Endoscopy Department Report _ Patient Name: Sarabjit Herrera Procedure Date: 03/04/2021 11:47 AM Date of : 1960 Classification: Outpatient Gender: Male Ethnicity: Not or Race: White _ Providers: Praveena Chavez MD, Melvin Ricks (Fellow) Referring MD: Jeovanny Clancy (Referring MD) Procedure: Colonoscopy Indications: High risk colon cancer surveillance: Personal history of colonic polyps Medications: Monitored Anesthesia Care Description of Procedure: Pre-Anesthesia Assessment: - Prior to the procedure, a History and Physical was performed, and patient medications and allergies were reviewed. The patient's tolerance of previous anesthesia was also reviewed. The risks and benefits of the procedure and the sedation options and risks were discussed with the patient. All questions were answered, and informed consent was obtained. Prior Anticoagulants: The patient has taken no previous anticoagulant or antiplatelet agents. ASA Grade Assessment: II - A patient with mild systemic disease. After reviewing the risks and benefits, the patient was deemed in satisfactory condition to undergo the procedure. After I obtained informed consent, the scope was passed under direct vision. Throughout the procedure, the patient's blood pressure, pulse, and oxygen saturations were monitored continuously. The [id number] was introduced through the anus and advanced to the terminal ileum, with identification of the appendiceal orifice and IC valve. The colonoscopy was performed without difficulty. The patient tolerated the procedure well. The quality of the bowel preparation was evaluated using the BBPS ([place] Bowel Preparation Scale) with scores of: Right Colon = 3, Transverse Colon = 3 and Left Colon = 3 (entire mucosa seen well with no residual staining, small fragments of stool or opaque liquid). The total BBPS score equals 9. The terminal ileum, ileocecal valve, appendiceal orifice, and rectum were photographed. Scope insertion time was 5 minutes. Findings: The perianal and digital rectal examinations were normal. A 10 mm polyp was found in the ascending colon. The polyp was sessile. Area was successfully injected with 4 mL Orise gel for a lift polypectomy. The polyp was removed with a hot snare. Resection and retrieval were complete. To prevent bleeding post-intervention, one hemostatic clip was successfully placed (MR conditional). There was no bleeding during, or at the end, of the procedure. A 2 mm polyp was found in the descending colon. The polyp was sessile. The polyp was removed with a jumbo cold forceps. Resection and retrieval were complete. Multiple small and large-mouthed diverticula were found in the sigmoid colon, descending colon, transverse colon, ascending colon and cecum. Internal hemorrhoids were found during retroflexion. The hemorrhoids were small and Grade I (internal hemorrhoids that do not prolapse). Estimated Blood Loss: Estimated blood loss was minimal. Complications: No immediate complications. Impression: - One 10 mm polyp in the ascending colon, removed with a hot snare. Resected and retrieved. Injected. Clip (MR conditional) was placed. - One 2 mm polyp in the descending colon, removed with a jumbo cold forceps. Resected and retrieved. - Diverticulosis in the sigmoid colon, in the descending colon, in the transverse colon, in the ascending colon and in the cecum. - Internal hemorrhoids. Recommendation: - Patient has a contact number available for emergencies. The signs and symptoms of potential delayed complications were discussed with the patient. Return to normal activities tomorrow. Written discharge instructions were provided to the patient. - Resume previous diet. - Continue present medications. - Await pathology results. - Repeat colonoscopy in 3 years for surveillance. Attending Participation: I was present and participated during the entire procedure, including non-fritz portions. Procedure Code(s): --- Professional --- 02724, Colonoscopy, flexible; with removal of tumor(s), polyp(s), or other lesion(s) by snare technique 28889, Colonoscopy, flexible; with directed submucosal injection(s), any substance 35059, 59, Colonoscopy, flexible; with biopsy, single or multiple Diagnosis Code(s): --- Professional --- Z86.010, Personal history of colonic polyps K63.5, Polyp of colon K64.0, First degree hemorrhoids K57.30, Diverticulosis of large intestine without perforation or abscess without bleeding CPT copyright 2019 [employer]. All rights reserved. The codes documented in this report are preliminary and upon mc kay stitcher review may be revised to meet current compliance requirements. ____ Praveena Chavez MD 03/04/2021 12:41:18 PM Note Initiated On: 03/04/2021 11:47 AM Number of Addenda: [id number] [place] [address] 03/04/2021 11:4 7 AM CDT Praveena Chavez MD GI PROCEDURE ORDERABLES Ed ited Result - Final Performing Organization Address City/[facility]/ZIP Co de Phone Number [facility] * GLUCOSE - POINT OF CARE (03/04/2021 9:48 AM CDT) [facility] Glucose WB/POC 114 70 - 115 mg/dL 03/04/2021 9:48 AM CDT [facility] Specimen Type Venous 03/04/2021 9:48 AM CDT [facility] Blood BLOOD SPECIMEN / Unknown 03/04/2021 9:48 AM CDT 03/04/2021 9:48 AM CDT Praveena Chavez MD LAB - POINT OF CARE ORDERA BLES Final Result Performing Organization Address [facility] Co de Phone Number [address] [address], [facility] [phone] * HEPATITIS C AB W/RFLX TO HCV RNA QN PCR (01/21/2021 9:13 AM CDT) [facility] Hepatitis C Antibody NON-REACTI VE NON-REACT [facility] Signal to Cut-Off 0.01 <1.00 [facility] Comment: HCV antibody was non-reactive. There is no laboratory evidence of HCV infection. In most cases, no further action is required. However, if recent HCV exposure is suspected, a test for HCV RNA (test code 15100) is suggested. For additional information please refer to http://education.139shop/faq/OTB27s3 (This link is being provided for informational/ educational purposes only.) Test Performed at: [facility] [address] [place] [address] JOSE E SCHRADER DO,MPH Blood BLOOD SPECIMEN / Unknown 01/21/2021 9:13 AM CDT 01/21/2021 9:13 AM CDT us Kemi Mesa MD LAB - CHEMISTRY ORDERABLES Final Result [facility] [id number] [place] [address] from Last 3 Months or Most Recently Relevant to Health Maintenance Insurance ANTHEM ANTHEM Advance Directives * Full Code (Latest Code Status on File) Date Activated Date Inactivated Comments 03/14/2018 9:48 PM 04/24/2018 8:49 PM Care Teams Nurse College Relationship Specialty Start Date End Date Jeovanny Clancy MD [address] [address] PCP - General 03/15/18
--- OUTSIDE RECORDS SUMMARY | 2025-04-08 10:53 | XMS_ITS | Clinical Summary ---
Author Organization [facility] Address [address] [place] [address] Care Team Providers Care Heating Mechanic Name Role Phone Jeovanny Clancy MD Primary Care Provider [phone]- [phone] Allergies No known active allergies Medications oxyCODONE-acet aminophen (PERCOCET) 10-325 MG tablet Take 1 tablet by mouth 4 (four) times daily as needed for Pain. FOR PAIN 3 Active SPIRIVA RESPIMAT 2.5 MCG/ACT inhaler (SPIRIVA RESPIMAT) Inhale 2 puffs into the lungs daily. 3 Active hydrALAZINE (APRESOLINE) 50 MG tablet Take 1 tablet (50 mg total) by mouth 2 (two) times daily. Active LANTUS SOLOSTAR 100 UNIT/ML injection (PEN) Inject 7,500 Units into the skin every morning. 4 Active potassium chloride CR (MICRO-K) 10 MEQ CR capsule Take 3 capsules (30 mEq total) by mouth daily. 3 Active pantoprazole EC (PROTONIX) 40 MG tablet Take 1 tablet (40 mg total) by mouth every morning. 3 Active tamsulosin (FLOMAX) 0.4 MG Cap Take 1 capsule (0.4 mg total) by mouth daily. 4 Active metOLazone (ZAROXOLYN) 5 MG tablet Take 1 tablet (5 mg total) by mouth daily. 3 Active pregabalin (LYRICA) 75 MG capsule Take 1 capsule (75 mg total) by mouth 2 (two) times daily. 4 Active bumetanide (BUMEX) 2 MG tablet Take 1 tablet (2 mg total) by mouth 2 (two) times daily. 3 Active rosuvastatin (CRESTOR) 20 MG tablet Take 1 tablet (20 mg total) by mouth daily. Active metoprolol succinate ER (TOPROL-XL) 100 MG 24 hr tablet Take 1 tablet (100 mg total) by mouth daily. Active aspirin EC (ECOTRIN) 81 MG tablet Take 1 tablet (81 mg total) by mouth daily. Active Alpha Lipoic Acid 200 MG Cap Take 200 mg by mouth 2 (two) times daily. Active B Complex-C Tab tablet Take 1 tablet by mouth daily. Active albuterol sulfate HFA 108 (90 Base) MCG/ACT inhaler (90 mcg/actuat) Acti ve budesonide-for moterol (SYMBICORT) 80-4.5 MCG/ACT inhaler (80-4.5 mcg/actuat) Active BD PEN NEEDLE GI 2ND GEN 32G X 4 MM Misc see administration instructions. 3 Active RESVERATROL OR 500 mg BID Acti ve pregabalin (LYRICA) 100 MG capsuleIndicat ions:Neuropath y Take 1 capsule (100 mg total) by mouth 2 (two) times daily. 60 capsule 5 4 Active azelastine (OPTIVAR) 0.05 % ophthalmic solution instill 1 drop in each eye twice daily 4 Active Active Problems No known active problems Family History Medical History Relation Comments No Known Problems Brother Stroke Father Aneurysm Mother Heart Attack Sister Relation Status Comments Brother Alive Father Mother Sister Social History Tobacco Use Types Packs/Day Years Used Date Smoking Tobacco: Every Day Cigarettes 1 40 Smokeless Tobacco: Never Tobacco Cessation:Ready to Q uit: No; Counseling Given: Yes Alcohol Use Standard Drinks/Week Comments Not Currently 0 (1 standard drink = 0.6 oz pur e alcohol) PHQ-2 Answer Date Recorded Patient Health Questionnaire-2 Score 2 01/05/2025 Sex and Gender Information Value Date Recorded Sex Assigned at Not on file Legal Sex Male 10:47 AM BIOASSAYIST Gender Identity Not on file Sexual Orientation Not on file Last Filed Vital Signs Vital Sign Reading Time Taken Comments Blood Pressure 141/88 01/05/2025 8:30 AM CDT Pulse 71 01/05/2025 8:08 AM CDT Temperature 37 C (98.6 F) 07/07/2024 8:41 AM BIOASSAYIST Respiratory Rate 14 01/05/2025 8:08 AM CDT Oxygen Saturation 95% 01/05/2025 8:08 AM CDT Inhaled Oxygen Concentration - - Weight 109.3 kg (241 lb) 01/05/2025 8:08 AM CDT Height 182.9 cm (6') 01/05/2025 8:08 AM CDT Body Mass Index 32.69 01/05/2025 8:08 AM CDT Plan of Treatment Upcoming Encounters Date Type Department Care Team (Late st Contact Info) Description 07/06/2025 8:00 AM BIOASSAYIST Office Visit [facility] Multispecialty Care - [facility] [address] [facility], [address] [place] [address] Carson Joya MD [address] [place] [address] Health Maintenance Due Date Last Done Comments Colorectal Cancer Screening Colonoscopy (10 Years) 1960 Hepatitis C 1976 DTaP, Tdap and Td Vaccines (1 - Tdap) 1977 Pneumococcal Vaccine: 50+ Years (1 of 2 - PCV) 1977 Zoster Vaccines (1 of 2) 2008 Lung Cancer Screening 09/13/2021 09/13/2020, 018 Annual Medicare Wellness Visit 11/17/2023 COVID-19 Vaccine ( - season) 2024 RSV Immunization or 60+ Years (1 - 1-dose 75+ series) 2033 AAA SCREENING Completed 01/27/2021, 01/18, 09/13/2020, Additional history exists PHQ-2 (Physician [place]) Completed 01/05/2025 Meningococcal B Vaccine Aged Out No l onger eligible based on patient's age to complete this topic Meningococcal Vaccine Aged Out No adrianne jeremiah eligible based on patient's age to complete this topic RSV Immunizations Under 20 Months Aged Out No longer eligible based on patient's age to complete this topic Insurance [facility] Care Teams Heating Mechanic Relationship Specialty Start Date End Date Jeovanny Clancy MD [address] [address] PCP - General FAMILY PRACTICE 09/24/23
[2025-04-08 11:17] LABS: Source Synovial Fluid Lt Knee Syn Fluid
[2025-04-08 11:18] LABS: Color Synovial Fluid Yellow (Colorless); Lymphocytes Synovial Fluid 60 %; Macrophages Synovial Fluid 20 %; Monocytes Synovial Fluid 5 %; Neutrophils Synovial Fluid 15 % (0-25); Nucleated Cell Synovial Fluid 1525 /uL (0-200); RBC Synovial Fluid < 2000 /uL (0-0)
== END 2025-04-08 10:25 | disposition home or self-care (01) ==
LOC: ANHLAB 10:25
PROVIDERS: PCP Family Medicine Adolescent Medicine; Visit Provider Orthopaedic Surgery
DX: M25.462 Effusion, left knee (principal)
CPT/HCPCS: 89051; 89060

== ENCOUNTER 2025-06-24 07:49 | Outpatient (CLI) | payer MEDICARE, SELFPAY ==
--- NOTE | ~2025-06-24 | US_ITS ---
EXAMINATION: US abdomen complete, 06/24/2025 8:00 WIND SITE MANAGER HISTORY: Recheck pancreatic cyst COMPARISON: Comparison 07/09/2024. Technique: Boyce-scale and color Doppler images were obtained. Findings: LIVER: Lliver contours intact, no lesions. Normal echogenicity. . GALLBLADDER/BILIARY: Post cholecystectomy. CBD 4 mm. [place] sign negative. PANCREAS: Within the pancreas cystic lesion in the pancreatic tail measures 7.6 x 7.1 cm. SPLEEN: Unremarkable, no splenomegaly. KIDNEYS: Right Kidney: Right kidney 12.7 x 4.3 x 5.5 cm, normal. Left Kidney: Left kidney 11.3 x 5.5 x 5.3 cm, normal. AORTA: Normal caliber aorta. IVC: Unremarkable. FREE FLUID: None. Impression: Large slightly complex appearing cystic pancreatic lesion which appears increased in size compared to the previous study. Contrast-enhanced MRI is recommended to further evaluate Reviewed, dictated and finalized at location P. SITE MANAGER Impression: Large slightly complex appearing cystic pancreatic lesion which appears increas ed in size compared to the previous study. Contrast-enhanced MRI is recommended to further evaluate
== END 2025-06-24 07:50 | disposition home or self-care (01) ==
LOC: MICIMG 07:49
PROVIDERS: PCP Family Medicine Adolescent Medicine; Visit Provider Family Medicine Adolescent Medicine
DX: K86.1 Other chronic pancreatitis (principal); K86.2 Cyst of pancreas; K86.3 Pseudocyst of pancreas
CPT/HCPCS: 76700

== ENCOUNTER 2025-08-02 07:50 | Outpatient (CLI) | payer MEDICARE, SELFPAY ==
--- NOTE | ~2025-08-02 | MR_ITS ---
EXAMINATION: MR abdomen wo/w con DATE: 08/02/2025 09:33 INDICATION: Pancreatic cyst. TECHNIQUE: Magnetic resonance imaging (MRI) of the abdomen was performed without and with 20 mL MultiHance intravenous contrast. COMPARISON: Abdomen ultrasound 06/24/2025, CT abdomen 07/12/2018 FINDINGS: The liver is normal. The gallbladder is absent. The common duct is normal and measures 7 mm. The spleen is normal. Adjacent to the body and tail of the pancreas, there is a 7.4 cm cyst with dependent fluid/fluid level and peripheral nonenhancing material, consistent with walled-off necrosis. The adrenal glands and kidneys are normal. There are no dilated loops of bowel. There is diverticulosis of the colon without evidence of diverticulitis. There is no ascites. There are no pathologically enlarged lymph nodes. IMPRESSION: 1. 7.4 cm cystic mass adjacent to the body and tail of the pancreas, consistent with walled-off necrosis. Reviewed, dictated and finalized at location E. T I FARMWORKER
--- OUTSIDE RECORDS SUMMARY | 2025-08-02 07:55 | XMS_ITS | Clinical Summary ---
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 Gender Identity Not on file Sexual Orientation Not on file Plan of Treatment Upcoming Encounters Date Type Department Care Team (Late st Contact Info) Description 08/03/2025 11:00 AM CATTLE AND WHEAT FARMER Office Visit [facility] [place] [address] [place] [address] Neil Vázquez, DO [address] [place] [address] Health Maintenance Due Date Last Done Comments Hepatitis C Virus (HCV) Screening 1960 TdaP Immunization 1960 Cologuard 11/17/2003 Colonoscopy 11/17/2003 Colorectal Cancer Screening 11/17/2003 Immunochemical Fecal Occult Blood 11/17/2003 Pneumococcal Immunization (50+ years) (1 of 1 - PCV) 2008 Zoster Immunization (1 of 2) 2008 PSA Discussion 2013 Welcome to Medicare (IPPE) G0402 08/20/2024 SARS-COV-2 Immunization ( season) 2025 06/06/2024, 05/22/2021, 11/23/2020, Additional history exists Respiratory Syncytial Virus (RSV) Immunization (Adult) (1 - 1-dose 75+ series) 2033 Influenza Immunization Completed , 06/06/2024, 07/02/2023, Additional history exists Hepatitis B Immunization Aged Out No longer eligible based on patient's age to complete this topic Human Papillomavirus (HPV) Immunization (No Doses Required) Completed Meningococcal Immunization (ACWY) Aged Out No longer eligible based on patient's age to complete this topic Rotavirus Immunization Aged Out No lo nger eligible based on patient's age to complete this topic Insurance MEDICARE [facility] Care Teams Retort Kiln Burner Relationship Specialty Start Date End Date Jeovanny Clancy MD [address] [place] [address] PCP - General Family Medicine 07/14/25
--- OUTSIDE RECORDS SUMMARY | 2025-08-02 07:55 | XMS_ITS | Encounter Summary ---
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 [address] [place] [address] Phone: tel: fax: Referral ID Status Reason Start Date Expiration Date V isits Requested Visits Authorized [id number] Closed Specialty Services 07/09/2025 07/09/2026 100 100 ARCHITECT Encounter Details Date Type Department Care Team (Latest Contact Info) Description 07/09/2025 Results Follow-Up [facility] Medical Group Multispecialty Care - [address], [address] [place] [address] Carson Joya MD [address] [place] [address] VITAMIN B-12, FOLIC ACID SERUM, KAPPA LAMBDA FREE RATIO (QST) Social History Tobacco Use Types Packs/Day Years Used Date Smoking Tobacco: Every Day Cigarettes 1 40 Smokeless Tobacco: Never Alcohol Use Standard Drinks/Week Comments Not Currently 0 (1 standard drink = 0.6 oz pur e alcohol) PHQ-2 Answer Date Recorded Patient Health Questionnaire-2 Score 2 01/05/2025 Sex and Gender Information Value Date Recorded Sex Assigned at Male 07/06/2025 9:27 AM DEAL ARCHITECT Legal Sex Male 10:47 AM DEAL ARCHITECT Gender Identity Not on file Sexual Orientation Not on file documented as of this encounter Plan of Treatment Upcoming Encounters Date Type Department Care Team (Late st Contact Info) Description 09/22/2025 9:30 AM DEAL ARCHITECT Appointment [facility] [place] [address] Lorenzo Andrew MD [address] [facility] [address] [place] [address] 09/22/2025 11:00 AM DEAL ARCHITECT [place]ointment [place] [address] Lorenzo Andrew MD [address] [facility] [address] [place] [address] 10/09/2025 9:00 AM DEAL ARCHITECT Office Visit [facility] [address] Lorenzo Andrew MD 3 [facility] [address] [place] [address] 10/12/2025 1:20 PM DEAL ARCHITECT [facility] [address] [facility], [facility] [address] [place] [address] Jeovanny Acharya MD [address] [place] [address], [facility] [address] [place] [address] 12/15/2025 8:40 AM CDT [facility] [address], [address] [place] [address] Carson Joya MD [address] [place] [address] Scheduled Referrals Name Type Priority Associated Diagnoses Orde r Schedule Ambulatory referral to Hematology Referral Routine [place]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
--- OUTSIDE RECORDS SUMMARY | 2025-08-02 07:55 | XMS_ITS | Clinical Summary ---
Author Organization [facility] Address [address] [place] [address] Care Team Providers Care Polisher Sand Name Role Phone Jeovanny Clancy MD Primary Care Provider [phone] Allergies Active Allergy Reactions Criticality Noted Date Comments Indomethacin Other (see comment) 12/31/2024 Pregabalin Other (see comment) Low 12/31/2024 Pt says it makes him feel drunk Medications oxyCODONE-aceta minophen (PERCOCET) 10-325 MG tablet Take 1 tablet by mouth 4 (four) times daily as needed for Pain. FOR PAIN 06/29/20 23 Active SPIRIVA RESPIMAT 2.5 MCG/ACT inhaler (SPIRIVA RESPIMAT) Inhale 2 puffs into the lungs daily. 03/20/20 23 Active hydrALAZINE (APRESOLINE) 50 MG tablet Take 1 tablet (50 mg total) by mouth 2 (two) times daily. Active LANTUS SOLOSTAR 100 UNIT/ML injection (PEN) Inject 7,500 Units into the skin every morning. 09/16/19 24 Active potassium chloride CR (MICRO-K) 10 MEQ CR capsule Take 3 capsules (30 mEq total) by mouth daily. 01/26/20 23 Active pantoprazole EC (PROTONIX) 40 MG tablet Take 1 tablet (40 mg total) by mouth every morning. 06/25/20 23 Active tamsulosin (FLOMAX) 0.4 MG Cap Take 1 capsule (0.4 mg total) by mouth daily. 09/16/19 24 Active metOLazone (ZAROXOLYN) 5 MG tablet Take 1 tablet (5 mg total) by mouth daily. 07/06/20 23 Active pregabalin (LYRICA) 75 MG capsule Take 1 capsule (75 mg total) by mouth 2 (two) times daily. 08/30/19 24 Active bumetanide (BUMEX) 2 MG tablet Take 1 tablet (2 mg total) by mouth 2 (two) times daily. 07/09/20 23 Active rosuvastatin (CRESTOR) 20 MG tablet Take [...] 108 (90 Base) MCG/ACT inhaler (90 mcg/actuat) Active budesonide-form oterol (SYMBICORT) 80-4.5 MCG/ACT inhaler (80-4.5 mcg/actuat) Active BD PEN NEEDLE GI 2ND GEN 32G X 4 MM Misc see administration instructions. 02/16/20 23 Active RESVERATROL OR 500 mg BID Acti ve pregabalin (LYRICA) 100 MG capsuleIndicati ons:Neuropathy Take 1 capsule (100 mg total) by mouth 2 (two) times daily. 60 capsule 5 12/28/19 24 Active azelastine (OPTIVAR) 0.05 % ophthalmic solution instill 1 drop in each eye twice daily 04/23/20 24 Active isosorbide mononitrate ER (IMDUR) 30 MG 24 hr tablet Take 1 tablet (30 mg total) by mouth daily. HOLD ISOSORBIDE AND NITRO TABLETS 48 HOURS BEFORE TAKING TADALAFIL AND HOLD ANOTHER 48 HOURS AFTER TAKING TADALAFIL. 30 tablet 11 07/10/20 25 Active nitroglycerin (NITROSTAT) 0.4 MG SL tabletIndicatio ns:Coronary artery disease of [place] artery of [place] heart with stable angina pectoris Place 1 tablet (0.4 mg total) under the tongue every 5 (five) minutes as needed for Chest Pain. MAX 3 tablets then call 911. HOLD ISOSORBIDE AND NITRO TABLETS 48 HOURS BEFORE TAKING TADALAFIL AND HOLD ANOTHER 48 HOURS AFTER TAKING TADALAFIL. 25 tablet 1 07/10/20 25 Active metoprolol tartrate (LOPRESSOR) 25 MG tablet Take 3 tablets (75mg total) by mouth ONE HOUR PRIOR TO CORONARY CTA. 3 tablet 07/10/20 25 Active isosorbide mononitrate ER (IMDUR) 30 MG 24 hr tablet Take 1 tablet (30 mg total) by mouth daily. 30 tablet 11 07/10/20 25 025 Discontin ued(Reord er) nitroglycerin (NITROSTAT) 0.4 MG SL tabletIndicatio ns:Coronary artery disease of [place] artery of [place] heart with stable angina pectoris PLACE ONE TABLET UNDER THE TONGUE EVERY 5 MINUTES NEEDED FOR CHEST PAIN FOR A MAXIMUM OF 3 DOSES. IF TAKING THE THIRD DOSE, CALL 9-1-1. 25 tablet 1 07/10/20 025 Discontin ued(Reord er) Active Problems Problem Noted Date Diagnosed Date Localized edema 07/10/2025 Hypercholesterolemia 07/10/2025 Primary hypertension 07/10/2025 DM (diabetes mellitus) 07/10/2025 Other emphysema 07/10/2025 Coronary artery disease of n ative artery of [place] heart with stable angina pectoris 07/10/2025 Palpitations 07/10/2025 Encounters Date Type Department Care Team Description 07/29/2025 Results [facility] [address] [address] Heike Galo RN CMP (OUTSIDE LAB), LIPID PANEL 07/29/2025 Abstract [facility] [address] [address] Felicia Henry, CONTROL ANALYST 07/24/2025 10:30 AM FISH CONSERVATIONIST Procedure Only [facility] [address] Jan Aviles MD Ekg 07/24/2025 9:31 AM FISH CONSERVATIONIST - 07/24/2025 11:59 PM FISH CONSERVATIONIST Hospital Encounter [facility] Sleep Lab [address] [place], [place] [phone] Jan Aviles MD Shortness Of Breath ; Palpitations; Hypertension Discharge Disposition: Home or Self Care (Routine Discharge) 07/24/2025 Travel 07/21/2025 1:00 PM FISH CONSERVATIONIST Telephone [facility], [place], [facility] [address] [place] [address] Jan Aviles MD Holter Monitor 07/18/2025 Scan [employer] INFO SRVCS Scanned, [facility] Lab (SCAN) 07/13/2025 Telephone [facility] [place] [address], [address] [place] [address] Roberto Carlos VII, Frankie Saenz MD Referral 07/10/2025 7:45 AM FISH CONSERVATIONIST Office Visit [facility] [address] Jan Aviles MD Consult (PEDAL EDEMA) 07/10/2025 Telephone [facility] [place], [address] [address] Jan Aviles MD Medication (METOPROLOL TARTRATE) 07/10/2025 Telephone [facility], [place], [facility] [address] [place] [address] Oliva Landis [facility] Medication Question (Drug to drug interactions) 07/10/2025 Travel 07/09/2025 Results Follow-Up [facility] Multispecialty Care - [facility] [address] [facility], [address] [place] [address] Carson Joya MD VITAMIN B-12, FOLIC ACID SERUM, KAPPA LAMBDA FREE RATIO (QST) 07/06/2025 9:30 AM FISH CONSERVATIONIST - 07/06/2025 11:59 PM FISH CONSERVATIONIST Hospital Encounter [facility] [place] [address] Carson Joya MD Discharge Disposition: Home or Self Care (Routine Discharge) 07/06/2025 8:00 AM FISH CONSERVATIONIST Office Visit [facility] Medical Group Multispecialty Care - [facility] [address] [facility], [address] [place] [phone] Carson Joya MD Follow Up (Claudication Lumbosacral radiculopathy///) 07/06/2025 Travel from Last 3 Months Family History Medical History Relation Comments No [...] Sex Assigned at Male 07/06/2025 9:27 AM FISH CONSERVATIONIST Legal Sex Male 10:47 AM FISH CONSERVATIONIST Gender Identity Not on file Sexual Orientation Not on file Last Filed Vital Signs Vital Sign Reading Time Taken Comments Blood Pressure 132/80 07/10/2025 8:11 AM FISH CONSERVATIONIST Pulse 72 07/10/2025 8:11 AM FISH CONSERVATIONIST Temperature 37 C (98.6 F) 07/06/2025 7:55 AM FISH CONSERVATIONIST Respiratory Rate 14 01/05/2025 8:08 AM CDT Oxygen Saturation 90% 07/06/2025 7:55 AM FISH CONSERVATIONIST Inhaled Oxygen Concentration - - Weight 106.6 kg (235 lb) 07/06/2025 7:55 AM FISH CONSERVATIONIST Height 182.9 cm (6') 07/06/2025 7:55 AM FISH CONSERVATIONIST Body Mass Index 31.87 07/06/2025 7:55 AM FISH CONSERVATIONIST Plan of Treatment Upcoming Encounters Date Type Department Care Team (Late st Contact Info) Description 09/22/2025 9:30 AM FISH CONSERVATIONIST Appointment [facility] Non [place]vasive [place] [address] Jan Aviles MD [address] [place] [phone] 09/22/2025 11:00 AM FISH CONSERVATIONIST Appointment [place] [address] [address] Jan Aviles MD 3 [facility] [place] [address] [place] [phone] 10/09/2025 9:00 AM FISH CONSERVATIONIST Office Visit [facility] [address] Jan Aviles MD [address] [facility] [address] [place] [phone] 10/12/2025 1:20 PM FISH CONSERVATIONIST Office Visit [facility] Multispecialty Care - [facility] [address] [facility] [address] [place] [phone] Jeovanny Acharya MD [address] [place] [address] 12/15/2025 8:40 AM CDT [facility] [address] [facility] [facility] [address], [address] [place] [phone] Carson Joya MD [address] [facility] [address] [place], [place] [address] Health Maintenance Due Date Last Done Comments ASCVD LDL 1960 ASCVD Statin 1960 Colorectal Cancer Screening Colonoscopy (10 Years) 1960 Kidney Health Evaluation 1960 Hemoglobin A1C 1960 Diabetes: Retinopathy Eye Exam 1976 Hepatitis C 1976 DTaP, Tdap and Td Vaccines (1 - Tdap) 1977 Pneumococcal Vaccine: 50+ Years (2 of 2 - PPSV23, PCV20, or PCV21) 08/12/2018 06/17/2018 RSV Immunization or 60+ Years (1 - Risk 60-74 years 1-dose series) 2018 Zoster Vaccines (2 of 3) 08/31/2020 07/06/2020, 03/22 Lung Cancer Screening 09/13/2021 09/13/2020, 018 Annual Medicare Wellness Visit 11/17/2023 COVID-19 Vaccine ( season) 2025 06/06/2024, 05/22/2021, 11/23/2020, Additional history exists Lipid Panel 07/29/2026 07/29/2025 AAA SCREENING Completed 01/27/2021, 01/18, 09/13/2020, Additional history exists PHQ-2 (Physician Jones) Completed 01/05/2025 Influenza Adult Completed 06/12/2025, 05/20, 07/02/2023, Additional history exists Hepatitis A Vaccines Aged Out No long er eligible based on patient's age to complete this topic Meningococcal B Vaccine Aged Out No l onger eligible based on patient's age to complete this topic Meningococcal Vaccine Aged Out No adrianne jeremiah eligible based on patient's age to complete this topic RSV Immunizations Under 20 Months Aged Out No longer eligible based on patient's age to complete this topic Procedures Procedure Name Priority Date/Time Associated Diagnosis Comments LIPID PANEL Routine 07/29/2025 CMP (OUTSIDE LAB) Routine 07/29/2025 ELECTROCARDIOGRAM (NON MIDMARK ACQUIRED) Routine 07/24/2025 10:38 AM FISH CONSERVATIONIST Coronary artery disease of [place] artery of [place] heart with stable angina pectoris HOME SLEEP STUDY - WATCHPAT Routine 07/24/2025 9:31 AM FISH CONSERVATIONIST Primary hypertension Palpitations Shortness of breath OUTSIDE LAB (SCAN ORDER) 07/18/2025 OUTSIDE LAB (SCAN ORDER) 07/18/2025 KAPPA LAMBDA FREE RATIO (QST) Routine 07/06/2025 9:36 AM FISH CONSERVATIONIST Neuropathy Pedal edema Encounter to establish care PROTEIN, ELECTROPHORESIS Routine 025 9:36 AM FISH CONSERVATIONIST Neuropathy Pedal edema Encounter to establish care FOLIC ACID SERUM Routine 07/06/2025 9:36 AM FISH CONSERVATIONIST Neuropathy Pedal edema Encounter to establish care VITAMIN B-12 Routine 07/06/2025 9:36 AM FISH CONSERVATIONIST Neuropathy Pedal edema Encounter to establish care VITAMIN B6 Routine 07/06/2025 9:36 AM FISH CONSERVATIONIST Neuropathy Pedal edema Encounter to establish care VITAMIN B1 THIAMINE Routine 07/06/2025 9 :36 AM FISH CONSERVATIONIST Neuropathy Pedal edema Encounter to establish care from Last 3 Months Results * (ABNORMAL) CMP (OUTSIDE LAB) (07/29/2025) SODIUM S/P/B 138 135 - 146 POTASSIUM S/P/B 3.9 3.5 - 5.3 CHLORIDE S/P/B 89(A) 98 - 110 CO2 43(A) 20 - 32 BUN 33(A) 7 - 25 CREATININE S/P/B 1.58(A) 0.70 - 1.35 EGFR NON-AFR. AMER. 48(A) 60 - 90 CALCIUM S/P/B 9.0 8.6 - 10.3 GLUCOSE 339(A) 65 - 99 mg/dL TOTAL PROTEIN S/P/B 6.6 6.1 - 8.1 ALBUMIN S/P/B 3.6 3.6 - 5.1 AST 12 10 - 35 ALT 9 9 - 46 ALKALINE PHOSPHATASE S/P/B 95 35 - 144 BILIRUBIN TOTAL S/P/B 0.6 0.2 - 1.2 07/29/2025 us Default History Genericprovider LAB-OUTSIDE/ABST RACTED Final Result * (ABNORMAL) LIPID PANEL (07/29/2025) CHOLESTEROL 139 0 - 200 HDL 34(A) 40 - 60 TRIGLYCERIDES 462(A) 0 - 150 NON HDL CHOLESTEROL 105 0 - 130 CHOL/HDL RATIO 4.1 0.0 - 5.0 07/29/2025 us Default History Genericprovider LABORATORY Final Result * ELECTROCARDIOGRAM (07/24/2025 10:38 AM FISH CONSERVATIONIST) ECG QT 401 [facility] QTC 431 [facility] 07/24/2025 10:3 8 AM FISH CONSERVATIONIST Narrative [facility] - 07/24/2025 5:19 PM FISH CONSERVATIONIST [address] [address] Test Date: 2025-07-24 Pat Name: SOURAV HERRERA Department: 177 Room: Gender: Male Nutrition Specialist: AG : 1960 Requested By: JAN AVILES Order Number: [id number] Genoveva MD: Aristides Funez Measurements Intervals Maxwell Rate: 69 P: 76 ID: [id number] QRS: -78 QRSD: 133 T: 51 QT: 401 QTc: 431 Interpretive Statements SINUS RHYTHM LEFT AXIS DEVIATION INTRAVENTRICULAR CONDUCTION DELAY POSSIBLE ANTERIOR MYOCARDIAL INFARCTION, OF INDETERMINATE AGE No prior ECG for comparison CONSERVATIONIST Procedure Note Aristides Funez MD - 07/24/[address] [address] Test Date: 2025-07-24 Pat Name: SOURAV HERRERA Department: 177 Room: Gender: Male Nutrition Specialist: AG : 1960 Requested By: JAN AVILES Order Number: [id number] Reading MD: Aristides Funez Measurements Intervals Maxwell Rate: 69 P: 76 ID: [id number] QRS: -78 QRSD: 133 T: 51 QT: 401 QTc: 431 Interpretive Statements SINUS RHYTHM LEFT AXIS DEVIATION INTRAVENTRICULAR CONDUCTION DELAY POSSIBLE ANTERIOR MYOCARDIAL INFARCTION, OF INDETERMINATE AGE No prior ECG for comparison CONSERVATIONIST Jan Aviles MD PROCEDURES-ORDERABLE NO CHARG E Final Result Performing Organization Address City/[facility]/ZIP Co de Phone Number [facility] * OUTSIDE LAB (SCAN ORDER) (07/18/2025) Only the most recent of2 resultswithin the time period is included. 07/18/2025 us [facility] Scanned SCANNING Final Resu lt * VITAMIN B6 (07/06/2025 9:36 AM FISH CONSERVATIONIST) VITAMIN B6 S/P/B 5.6 2.1 - 21.7 ng/mL 07/12/2025 8:30 AM FISH CONSERVATIONIST [employer] Comment: Vitamin supplementation within 24 hours prior to blood draw may affect the accuracy of the results. This test was developed and its analytical performance characteristics have been determined by [facility] [place], [place]. It has not been cleared or approved by the U.S. Food and Drug Administration. This assay has been validated pursuant to the CLIA regulations and is used for clinical purposes. Test Performed by [facility], [facility] [place], [address] [place] [address] Jeovanny Beltre M.D., Ph.D., Director of Laboratories , CLIA [id number] BLOOD VENOUS BLOOD SPECIMEN / Unknown 07/06/2025 9:36 AM FISH CONSERVATIONIST Carson Joya MD LABORATORY Final Res ult Performing Organization Address City/[facility]/ZIP Co de Phone Number [employer] [address] , [place] [phone] * VITAMIN B1 THIAMINE (07/06/2025 9:36 AM FISH CONSERVATIONIST) Pathologist [facility] VITAMIN B1 S/P/B 17 8 - 30 nmol/L 07/10/2025 7:28 AM FISH CONSERVATIONIST [employer] SARAH FERDI Comment: Vitamin supplementation within 24 hours prior to blood draw may affect the accuracy of the results. This test was developed and its analytical performance characteristics have been determined by [facility] [place], [place]. It has not been cleared or approved by the U.S. Food and Drug Administration. This assay has been validated pursuant to the CLIA regulations and is used for clinical purposes. Test Performed by [facility], [facility], [address] [place] [address] Jeovanny Beltre M.D., Ph.D., Director of Laboratories , CLIA [id number] BLOOD VENOUS BLOOD SPECIMEN / Unknown 07/06/2025 9:36 AM FISH CONSERVATIONIST Carson Joya MD LABORATORY Final Res ult [employer] [address] , [place] [phone] * VITAMIN B-12 (07/06/2025 9:36 AM FISH CONSERVATIONIST) [facility] VITAMIN B12 S/P/B 476 254 - 1,320 PG/ML 07/06/2025 11:09 AM FISH CONSERVATIONIST [facility] BLOOD VENOUS BLOOD SPECIMEN / Unknown 07/06/2025 9:36 AM FISH CONSERVATIONIST Carson Joya MD LABORATORY Final Res ult [facility] [address] [place] [address], [place] [phone] * (ABNORMAL) PROTEIN, ELECTROPHORESIS (07/06/2025 9:36 AM FISH CONSERVATIONIST) TOTAL PROTEIN (ELECTROPHORESIS SERUM) 6.8 6.1 - 8.1 g/dL 07/09/2025 4:06 PM FISH CONSERVATIONIST [facility] MEETA LLLesly ALBUMIN ELECTROPHORESIS S/P/B 3.6(L) 3.8 - 4.8 g/dL 07/09/2025 4:06 PM FISH CONSERVATIONIST [facility] MEETA LLY [id number] S/P/B 0.3 0.2 - 0.3 g/dL 07/09/2025 4:06 PM FISH CONSERVATIONIST [facility] AMOS-ANATOLY LLY GHGGT-0-BOSWNCRE S/P/B 0.7 0.5 - 0.9 g/dL 07/09/2025 4:06 PM FISH CONSERVATIONIST [facility] AMOS-ANATOLY LLY BETA 1 GLOBULIN S/P/B 0.6 0.4 - 0.6 g/dL 07/09/2025 4:06 PM FISH CONSERVATIONIST [facility] AMOS-ANATOLY LLY BETA 2 GLOBULIN S/P/B 0.6(H) 0.2 - 0.5 g/dL 07/09/2025 4:06 PM FISH CONSERVATIONIST [facility] AMOS-ANATOLY LLY GAMMA GLOBULIN S/P/B 1.0 0.8 - 1.7 g/dL 07/09/2025 4:06 PM FISH CONSERVATIONIST [facility] AMOS-BENTI LLY ABNORMAL PROTEIN BAND 1 S/P/B REPORT 07/09/2025 4:06 PM FISH CONSERVATIONIST [facility] AMOS-BENTI LLY Comment: No M Marcio detected. Reference Range: None Detected ABNORMAL PROTEIN BAND 3 S/P/B END OF REPORT 07/09/2025 4:06 PM FISH CONSERVATIONIST [facility] AMOS-BENTI LLY ELECTROPHORESIS INTERPRETATION REPORT(A) 07/09/2025 4:06 PM FISH CONSERVATIONIST [facility] AMOS-ANATOLY LLY Comment: Electrophoretic studies reveal an isolated elevation of beta-2 globulins. This pattern is suggestive of acute inflammation; however, the presence of a monoclonal protein cannot be ruled out. Consider serum immunofixation to rule out monoclonal protein (if not already ordered). Test Performed by Glenny Brown [facility] [place], [address] [place] [address] Jeovanny Beltre M.D., Ph.D., Director of Laboratories , CLIA [id number] BLOOD VENOUS BLOOD SPECIMEN / Unknown 07/06/2025 9:36 AM FISH CONSERVATIONIST Carson Joya MD LABORATORY Final Res ult [id number] , [place] [phone] * (ABNORMAL) KAPPA LAMBDA FREE RATIO (QST) (07/06/2025 9:36 AM FISH CONSERVATIONIST) KAPPA FREE LIGHT CHAIN 68.2(H) 3.3 - 19.4 mg/L 07/09/2025 12:19 PM FISH CONSERVATIONIST [employer] [facility] LAMBDA FREE LIGHT CHAIN 34.6(H) 5.7 - 26.3 mg/L 07/09/2025 12:19 PM FISH CONSERVATIONIST [employer] KAPPA/LAMBDA FREE 1.97(H) 0.26 - 1.65 07/09/2025 12:19 PM FISH CONSERVATIONIST [employer] [facility] Comment: Free kappa/lambda ratio in serum of normal individuals is 0.26-1.65. Excess production of free kappa or lambda chains can alter the ratio. Monoclonal free light chains are found in the serum of patients with multiple myeloma, Waldenstrom's macroglobulinemia, mu-heavy chain disease, primary amyloidosis, light chain deposition disease, monoclonal gammopathy of undetermined significance, and lymphoproliferative disorders. Measurement of free light chain concen- tration in serum is useful for diagnosis, prognosis, monitoring disease activity and following response to therapy of these disorders. Test Performed by [facility] [place], [address] [place], [place] Jeovanny Beltre M.D., Ph.D., Director of Laboratories , CLIA [id number] BLOOD VENOUS BLOOD SPECIMEN / Unknown 07/06/2025 9:36 AM FISH CONSERVATIONIST Carson Joya MD LABORATORY Final Res ult [facility] [address] [place] [address], [place] [phone] * (ABNORMAL) FOLIC ACID SERUM (07/06/2025 9:36 AM FISH CONSERVATIONIST) FOLATE 40.8(H) 3.1 - 17.5 NG/ML 07/06/2025 11:09 AM FISH CONSERVATIONIST [facility] BLOOD VENOUS BLOOD SPECIMEN / Unknown 07/06/2025 9:36 AM FISH CONSERVATIONIST Carson Joya MD LABORATORY Final Res ult [facility] [address] [place] [address], [place] [phone] from Last 3 Months Insurance [facility] MEDICARE Care Teams Polisher Sand Relationship Specialty Start Date End Date Jeovanny Clancy MD [address] [address] PCP - General FAMILY PRACTICE 09/24/23
--- OUTSIDE RECORDS SUMMARY | 2025-08-02 07:55 | XMS_ITS | Encounter Summary ---
Author Organization [facility] System Address [facility] [place] [address] Care Team Providers Care Maintenance Dispatcher Name Role Phone Jeovanny Clancy MD Primary Care Provider [phone]- [phone] Encounter Details Date Type Department Care Team (Late st Contact Info) Description 07/29/2025 Results Follow-Up [facility] [address] [facility] [place] [address] [place] [address] CMP (OUTSIDE LAB), LIPID PANEL Social History Tobacco Use Types Packs/Day Years Used Date Smoking Tobacco: Every Day Cigarettes 1 40 Smokeless Tobacco: Never Alcohol Use Standard Drinks/Week Comments Not Currently 0 (1 standard drink = 0.6 oz pur e alcohol) PHQ-2 Answer Date Recorded Patient Health Questionnaire-2 Score 2 01/05/2025 Sex and Gender Information Value Date Recorded Sex Assigned at Male 07/06/2025 9:27 AM GENERATOR ASSEMBLER Legal Sex Male 10:47 AM GENERATOR ASSEMBLER Gender Identity Not on file Sexual Orientation Not on file documented as of this encounter Plan of Treatment Upcoming Encounters Date Type Department Care Team (Late st Contact Info) Description 09/22/2025 9:30 AM GENERATOR ASSEMBLER Appointment [facility] [address] [place], [place] [phone] Lorenzo Andrew MD 3 [facility] [address] [place] [phone] 09/22/2025 11:00 AM GENERATOR ASSEMBLER Appointment [facility] [address] [place] [address] Lorenzo Andrew MD [address] [facility] [address] [place] [phone] 10/09/2025 9:00 AM GENERATOR ASSEMBLER Office Visit [facility] [address] Lorenzo Andrew MD [address] [facility] [address] [place] [phone] 10/12/2025 1:20 PM GENERATOR ASSEMBLER [facility] [address] [facility] [place] [address] Jeovanny Acharya MD [address] [facility] [place] [address] 12/15/2025 8:40 AM CDT [facility] [address] [facility], [address] [place] [phone] Carson Joya MD [address] [place] [address] documented as of this encounter Visit Diagnoses Not on filedocumented in this encounter Care Teams Maintenance Dispatcher Relationship Specialty Start Date End Date Jeovanny Clancy MD [address] [place] [id number] PCP - General FAMILY PRACTICE 09/24/23 documented as of this encounter
== END 2025-08-02 07:51 | disposition home or self-care (01) ==
PROVIDERS: PCP Family Medicine Adolescent Medicine; Visit Provider Family Medicine Adolescent Medicine
DX: K86.2 Cyst of pancreas (principal)
CPT/HCPCS: 74183; A9577